=== PATIENT | male | born 1940 | race Caucasian/White ===

== ENCOUNTER → 2018-07-01 13:12 | Outpatient (CLI) | payer MEDICARE, OTHER, SELFPAY ==
--- NOTE | 2018-07-01 | DI.RAD.S_ITS ---
PROCEDURE: XR CHEST 2V INDICATIONS: cough TECHNIQUE: 2 views of the chest were acquired. COMPARISON: [facility], , CHEST 2 VIEW, 12/06/2016, 20:38. FINDINGS: Surgical changes and devices: Sternotomy wires, presumed prior CABG. Lungs and pleura: No pleural effusions or pneumothorax. Lungs are abnormal with a mild interstitial prominence. Mediastinum: Mediastinal contours are normal. Heart size is normal. Bones and chest wall: No suspicious bony abnormalities. Soft tissues appear unremarkable. IMPRESSION: Mild interstitial prominence, previously present. A slight degree of superimposed pulmonary edema may be present but no pneumonia is seen. Dictated by: Felipe Cuevas M.D. on 07/01/2018 at 13:57 Approved by: Felipe Cuevas M.D. on 07/01/2018 at 13:57
== END ==
PROVIDERS: PCP Family Medicine; Visit Provider Family Medicine
DX: R05 Cough (principal)
CPT/HCPCS: 71046

== ENCOUNTER → 2018-07-22 11:11 | Outpatient (CLI) | payer MEDICARE, OTHER, SELFPAY | PROVIDERS: PCP Family Medicine; Visit Provider Otolaryngology | DX: Z01.818 Encounter for other preprocedural examination (principal) | CPT/HCPCS: 93005 ==

== ENCOUNTER 2018-08-10 13:45 | Outpatient (RCR) | payer MEDICARE, OTHER, SELFPAY ==
--- NOTE | 2018-05-17 14:30 | PT.OIE ---
Current Diagnoses Low back pain (05/17/18) Provider Visit Care Team Role Provider Type Martín West MD Attending Provider Physician Primary Care Provider Specialty: Family Practice Address: [address], [place], [address] Email: Physical Therapy Initial Evaluation PT-OP-A Visit Information Start: 05/17/18 13:32 Freq: Status: Active Protocol: Document 05/17/18 14:30 MDD (Rec: 05/17/18 15:37 MDD [email or web address]) Out-Patient Physical Therapy Visit Information Visit Information Visit Type Initial Evaluation Visit Start Time 13:50 Visit Stop Time 14:30 Total Visit Minutes 40 Visit Number 1 Number of CHORAL DIRECTOR Visits 0 Evaluation Information Evaluation Date 05/17/18 PT-OP-B Current Condition Start: 05/17/18 13:32 Freq: Status: Active Protocol: Document 05/17/18 14:30 MDD (Rec: 05/17/18 15:37 MDD [email or web address]) Current Condition History of Current Condition Onset Date last few years Current Complaints Pt complains of fatigue in LE' s, decreased endurance and worsening balance History of Current Condition Pt comes in with his , Candice. They report multiple concerns. He notes intermittent low back pain that is worse in the morning and improves as the day goes on. It does not limit his activity, but he is concerned it may be having an affect on his legs (ie nerve compression /injury). Denies radiating pain, numbness/tingling in his legs or b/b changes. Does note some level of urgency incontinence at baseline. He had a porcine valve replacement a few years ago and continues to participate in cardiac rehab 2x per week. Notes that his legs fatigue more quickly when walking. reports they rarely walk together, but she usually has to wait for him because he is slow. Notes he was able to walk at good pace on level ground x 25 minutes yesterday without much trouble. Also reports falling 4-5 times in last 6 month. Denies dizziness, but feels unbalanced. No injuries so far due to falls. No use of an assistive device. Prior Treatments and Tests NA Future Testing and Treatments Planned NA Treatment Goals Patient/Caregiver Goals To be able to keep up with his . Decrease falls. Prior Functional Status Baseline Function- ADL's Independent Baseline Function- Mobility Independent Baseline Function- Recreation/Hobbies in spring, fall and winter attends an exercise class 2x per week in addition to cardiac rehab 2x per week. PT-OP-C Subjective Start: 05/17/18 13:32 Freq: Status: Active Protocol: Document 05/17/18 14:30 MDD (Rec: 05/17/18 15:37 MDD [email or web address]) OP-PT Pain Assessment Location Back Pain Location Details low back, B paraspinals Intensity 3 Scale Used Numeric (1 - 10) Description Aching Tightness Frequency Intermittent Pain Duration usually resolved by midmorning Pain Aggravating Factors Position PT-OP-D Balance Start: 05/17/18 13:32 Freq: Status: Active Protocol: Document 05/17/18 14:30 MDD (Rec: 05/17/18 15:37 MDD [email or web address]) Chandler Balance Assessment Evaluation Sitting to Standing Ability Independent w/out Hands Unsupported Stance Supervision- 2 minutes Sitting Unsupported, Feet on Floor Safely- 2 minutes Standing to Sitting Ability Safely, Minimal Hand Use Transfer Ability Safely, Minimal Hand Use Unsupported Stance- Eyes Closed Supervision, 10 seconds Unsupported Stance- Eyes Open Supervision to maintain Reaching Forward Standing Confidently, 10 inches Pick- Up Object From Floor Supervision Look Behind Shoulder - Standing Turns Sideways Only Turning 360 Degrees Turns , < 4 secs Unsupported Stance, Alternating Feet on 4 Steps w/Supervision Stair Unsupported Tandem Stance Small Step- 30 seconds Unilateral Leg Stance Lifts Leg/Holds 5-10 secs Total Score Chandler Total Score (out of 56 points) 44 Chandler Impairment Rating 20 to 39% Impaired (Score 34- 44) PT-OP-G Mobility & Gait Start: 05/17/18 13:32 Freq: Status: Active Protocol: Document 05/17/18 14:30 MDD (Rec: 05/17/18 15:37 MDD [email or web address]) OP Mobility Evaluation Bed Mobility Rolling independent Supine to and from Sit independent PT-OP-M Strength Start: 05/17/18 13:32 Freq: Status: Active Protocol: Document 05/17/18 14:30 MDD (Rec: 05/17/18 15:37 MDD [email or web address]) Hip Strength Hip Manual Muscle Testing Right Flexion (L2) 5 Normal Extension (S1) 5 Normal Abduction 5 Normal External Rotation 5 Normal Internal Rotation 5 Normal Left Flexion (L2) 5 Normal Extension (S1) 5 Normal Abduction 5 Normal External Rotation 5 Normal Internal Rotation 5 Normal Knee Strength Knee Manual Muscle Testing Right Flexion (S2) 5 Normal Extension (L3) 5 Normal Left Flexion (S2) 5 Normal Extension (L3) 5 Normal Ankle/Foot Strength Ankle and Foot Manual Muscle Testing Right Dorsiflexion (L4) 5 Normal Reason Not Measured WFL Left Dorsiflexion (L4) 5 Normal Reason Not Measured WFL PT-OP-T Assessment and Plan Start: 05/17/18 13:32 Freq: Status: Active Protocol: Document 05/17/18 14:30 MDD (Rec: 05/17/18 15:37 MDD [email or web address]) Physical Therapy Assessment Rehab Potential Rehabilitation Potential Excellent Evaluation Complexity Number of Personal Factors/Comorbidities 1-2 Number of Body Systems Impaired 1-2 Clinical Presentation at Evaluation Stable Impairments Impairments Activity Tolerance Balance Gait Pain Strength Goals Three Impairment activity tolerance Short Term Goal (STG) Pt to report ability to walk up to 40 minutes without fatigue STG Duration 6 weeks Two Impairment Balance Short Term Goal (STG) Pt to improve Chandler balance score to 52/56 to indicate decreased fall risk. STG Duration 6 weeks One Impairment Activity Tolerance Short Term Goal (STG) Pt will demonstrate ability to perform at least 11 sit to stands in 30 seconds. STG Duration 4 weeks Group Home Goal (LTG) Pt will increase 30 second sit to stand test by at least 5 reps LTG Duration 6 weeks Assessment Summary Assessment Pt complains of worsening balance, decreased endurance and fatigue that has been worsening in the last few years. On examination today he demonstrates mild balance impairments, mild LE strength deficits and decreased activity tolerance and should benefit from a PT plan of care to address the above impairments. Physical Therapy Plan Frequency and Duration Frequency of Treatment 1x/Week Duration of Treatment 8 weeks Plan of Care Start Date 05/17/18 Plan of Care End Date 07/12/18 Therapeutic Interventions Therapeutic Interventions Balance Training Gait Training Home Exercise Program Self-Care/Home Management Therapeutic Activities Therapeutic Exercises Next Visit Focus/Plan Next Note Type Treatment Note Next Visit Plan Perform DGI assessment, develop HEP including sit to stands, romberg balance with head turns/eyes closed etc.
--- NOTE | 2018-05-17 14:30 | PT.OPPOC ---
Current Diagnoses Low back pain (05/17/18) Provider Visit Care Team Role Provider Type Martín West MD Attending Provider Physician Primary Care Provider Specialty: Family Practice Address: [address], [place], [address] Email: Plan Of Care PT-OP-T Assessment and Plan Start: 05/17/18 13:32 Freq: Status: Active Protocol: Document 05/17/18 14:30 MDD (Rec: 05/17/18 15:37 MDD [email or web address]) Physical Therapy Assessment Rehab Potential Rehabilitation Potential Excellent Evaluation Complexity Number of Personal Factors/Comorbidities 1-2 Number of Body Systems Impaired 1-2 Clinical Presentation at Evaluation Stable Impairments Impairments Activity Tolerance Balance Gait Pain Strength Goals Three Impairment activity tolerance Short Term Goal (STG) Pt to report ability to walk up to 40 minutes without fatigue STG Duration 6 weeks Two Impairment Balance Short Term Goal (STG) Pt to improve Chandler balance score to 52/56 to indicate decreased fall risk. STG Duration 6 weeks One Impairment Activity Tolerance Short Term Goal (STG) Pt will demonstrate ability to perform at least 11 sit to stands in 30 seconds. STG Duration 4 weeks Mcfp Goal (LTG) Pt will increase 30 second sit to stand test by at least 5 reps LTG Duration 6 weeks Assessment Summary Assessment Pt complains of worsening balance, decreased endurance and fatigue that has been worsening in the last few years. On examination today he demonstrates mild balance impairments, mild LE strength deficits and decreased activity tolerance and should benefit from a PT plan of care to address the above impairments. Physical Therapy Plan Frequency and Duration Frequency of Treatment 1x/Week Duration of Treatment 8 weeks Plan of Care Start Date 05/17/18 Plan of Care End Date 07/12/18 Therapeutic Interventions Therapeutic Interventions Balance Training Gait Training Home Exercise Program Self-Care/Home Management Therapeutic Activities Therapeutic Exercises Next Visit Focus/Plan Next Note Type Treatment Note Next Visit Plan Perform DGI assessment, develop HEP including sit to stands, romberg balance with head turns/eyes closed etc. Plan of Care Dates Plan of Care Start Date 05/17/18 Plan of Care End Date 07/12/18 Please Sign and Return: I have reviewed this Plan of Care and certify that the skilled therapy services above are required to meet the patient?s needs. Physician Signature Date Printed Name and Credentials Clinical Instructor Signature Printed Name and Credentials
--- NOTE | 2018-06-07 14:30 | PT.OTN ---
Current Diagnoses Low back pain (06/07/18) Physical Therapy Treatment Note PT-OP-A Visit Information Start: 05/17/18 13:32 Freq: Status: Active Protocol: Document 06/07/18 14:30 MDD (Rec: 06/08/18 12:40 MDD [id number]) Out-Patient Physical Therapy Visit Information Visit Information Visit Type Treatment Note Visit Start Time 13:45 Visit Stop Time 14:30 Total Visit Minutes 45 Visit Number 2 Number of CIRCULATION ANALYST Visits 0 Evaluation Information Evaluation Date 05/17/18 PT-OP-B Current Condition Start: 05/17/18 13:32 Freq: Status: Active Protocol: Document 05/17/18 14:30 MDD (Rec: 05/17/18 15:37 MDD [email or web address]) Current Condition History of Current Condition Onset Date last few years Current Complaints Pt complains of fatigue in LE' s, decreased endurance and worsening balance History of Current Condition Pt comes in with his , Candice. They report multiple concerns. He notes intermittent low back pain that is worse in the morning and improves as the day goes on. It does not limit his activity, but he is concerned it may be having an affect on his legs (ie nerve compression /injury). Denies radiating pain, numbness/tingling in his legs or b/b changes. Does note some level of urgency incontinence at baseline. He had a porcine valve replacement a few years ago and continues to participate in cardiac rehab 2x per week. Notes that his legs fatigue more quickly when walking. reports they rarely walk together, but she usually has to wait for him because he is slow. Notes he was able to walk at good pace on level ground x 25 minutes yesterday without much trouble. Also reports falling 4-5 times in last 6 month. Denies dizziness, but feels unbalanced. No injuries so far due to falls. No use of an assistive device. Prior Treatments and Tests NA Future Testing and Treatments Planned NA Treatment Goals Patient/Caregiver Goals To be able to keep up with his . Decrease falls. Prior Functional Status Baseline Function- ADL's Independent Baseline Function- Mobility Independent Baseline Function- Recreation/Hobbies in spring, fall and winter attends an exercise class 2x per week in addition to cardiac rehab 2x per week. PT-OP-C Subjective Start: 05/17/18 13:32 Freq: Status: Active Protocol: Document 06/07/18 14:30 MDD (Rec: 06/08/18 12:40 MDD [id number]) OP-PT Subjective Patient Comments Patient Comments Pt comes in with , Candice. Reports having a fall in the shower last week. Was able to slowly slide down the wall and get back up, no injuries. Has not done any of his PT exercises. PT-OP-D Balance Start: 05/17/18 13:32 Freq: Status: Active Protocol: Document 06/07/18 14:30 MDD (Rec: 06/08/18 12:40 MDD [id number]) Balance Tests Other Other Balance Tests Performed Performed DGI today. Pt scored 18/24 which is indicative of fall risk. Pt had the most difficulty with changes in gait speed, head nods and turns and quick turns . Attention seems to play a roll in his balance deficits. PT-OP-G Mobility & Gait Start: 05/17/18 13:32 Freq: Status: Active Protocol: Document 05/17/18 14:30 MDD (Rec: 05/17/18 15:37 MDD [email or web address]) OP Mobility Evaluation Bed Mobility Rolling independent Supine to and from Sit independent PT-OP-M Strength Start: 05/17/18 13:32 Freq: Status: Active Protocol: Document 05/17/18 14:30 MDD (Rec: 05/17/18 15:37 MDD [email or web address]) Hip Strength Hip Manual Muscle Testing Right Flexion (L2) 5 Normal Extension (S1) 5 Normal Abduction 5 Normal External Rotation 5 Normal Internal Rotation 5 Normal Left Flexion (L2) 5 Normal Extension (S1) 5 Normal Abduction 5 Normal External Rotation 5 Normal Internal Rotation 5 Normal Knee Strength Knee Manual Muscle Testing Right Flexion (S2) 5 Normal Extension (L3) 5 Normal Left Flexion (S2) 5 Normal Extension (L3) 5 Normal Ankle/Foot Strength Ankle and Foot Manual Muscle Testing Right Dorsiflexion (L4) 5 Normal Reason Not Measured WFL Left Dorsiflexion (L4) 5 Normal Reason Not Measured WFL PT-OP-Q Treatments Start: 05/17/18 13:32 Freq: Status: Active Protocol: Document 06/07/18 14:30 MDD (Rec: 06/08/18 12:40 MDD [id number]) Therapeutic Exercises Supine Exercises supine lumbar rotation Side bilateral Reps/Minutes 10 reps single knee to chest Side bilateral Reps/Minutes 10 reps Standing Exercises sit to stands Reps/Minutes 20 heel-toe balance activity Standing Exercise Name weight shifts heel-toe maintaining balance Equipment Used standing against a wall - to be performed in corner at home Reps/Minutes 10 Romberg - head nods and turns Reps/Minutes [address] Romberg balance-eyes closed Standing Exercise Name feet together Reps/Minutes 2 x 30 seconds Romberg balance Standing Exercise Name feet together eyes open Side bilateral Reps/Minutes 2 x 30s PT-OP-T Assessment and Plan Start: 05/17/18 13:32 Freq: Status: Active Protocol: Document 06/07/18 14:30 MDD (Rec: 06/08/18 12:40 MDD [id number]) Physical Therapy Assessment Rehab Potential Rehabilitation Potential Excellent Progress Towards Goals Progress Towards Goals Slow Progress due to Noncompliance Progress Comments Pt has not yet started his HEP at home. Assessment Summary Assessment Pt reports one fall since his initial evaluation. Did have some difficulty with higher level balance as evidenced by DGI score today. Should continue to benefit from balance training and lower extremity strengthening. Physical Therapy Plan Frequency and Duration Frequency of Treatment 1x/Week Duration of Treatment 8 weeks Plan of Care Start Date 05/17/18 Plan of Care End Date 07/12/18 Next Visit Focus/Plan Next Note Type Treatment Note Next Visit Plan Review current HEP. Trial higher level balance activities including bosu, shuttle balance etc.
--- NOTE | 2018-06-14 14:32 | PT.OTN ---
Current Diagnoses Low back pain (06/14/18) Physical Therapy Treatment Note PT-OP-A Visit Information Start: 05/17/18 13:32 Freq: Status: Active Protocol: Document 06/07/18 14:30 MDD (Rec: 06/08/18 12:40 MDD [id number]) Out-Patient Physical Therapy Visit Information Visit Information Visit Type Treatment Note Visit Start Time 13:45 Visit Stop Time 14:30 Total Visit Minutes 45 Visit Number 2 Number of CITY AUDITOR Visits 0 Evaluation Information Evaluation Date 05/17/18 PT-OP-B Current Condition Start: 05/17/18 13:32 Freq: Status: Active Protocol: Document 05/17/18 14:30 MDD (Rec: 05/17/18 15:37 MDD [email or web address]) Current Condition History of Current Condition Onset Date last few years Current Complaints Pt complains of fatigue in LE' s, decreased endurance and worsening balance History of Current Condition Pt comes in with his , Candice. They report multiple concerns. He notes intermittent low back pain that is worse in the morning and improves as the day goes on. It does not limit his activity, but he is concerned it may be having an affect on his legs (ie nerve compression /injury). Denies radiating pain, numbness/tingling in his legs or b/b changes. Does note some level of urgency incontinence at baseline. He had a porcine valve replacement a few years ago and continues to participate in cardiac rehab 2x per week. Notes that his legs fatigue more quickly when walking. reports they rarely walk together, but she usually has to wait for him because he is slow. Notes he was able to walk at good pace on level ground x 25 minutes yesterday without much trouble. Also reports falling 4-5 times in last 6 month. Denies dizziness, but feels unbalanced. No injuries so far due to falls. No use of an assistive device. Prior Treatments and Tests NA Future Testing and Treatments Planned NA Treatment Goals Patient/Caregiver Goals To be able to keep up with his . Decrease falls. Prior Functional Status Baseline Function- ADL's Independent Baseline Function- Mobility Independent Baseline Function- Recreation/Hobbies in spring, fall and winter attends an exercise class 2x per week in addition to cardiac rehab 2x per week. PT-OP-C Subjective Start: 05/17/18 13:32 Freq: Status: Active Protocol: Document 06/14/18 14:32 MDD (Rec: 06/14/18 14:56 MDD [email or web address]) OP-PT Subjective Patient Comments Patient Comments Pt reports he lost his handout and was not able to remember all the exercises. He did do the stretches for bed to help his back pain. He also reports one fall in the last week. Notes he was attending a doctor's appointment with his and his R knee just gave out on him. Denies R knee pain overall. Patient Reported Progress Same PT-OP-Q Treatments Start: 05/17/18 13:32 Freq: Status: Active Protocol: Document 06/14/18 14:32 MDD (Rec: 06/14/18 14:56 MDD [email or web address]) Cardio Equipment Recumbent Stepper (Sci-Fit) Duration (Minutes) 5 Resistance 5 Seat Position 7 Gym Equipment Shuttle Balance Blue loops Details forward/backward weight shifts Reps/Duration 8 minutes Comments intermittent need for UE support, able to self correct Therapeutic Exercises Standing Exercises sit to stands Standing Exercise Name sit to stands Reps/Minutes 20 Comments emphasis on slow/controlled movement heel-toe balance activity Standing Exercise Name weight shifts heel-toe maintaining balance Equipment Used standing against a wall - to be performed in corner at home Reps/Minutes 10 Romberg - head nods and turns Reps/Minutes [address] Romberg balance-eyes closed Standing Exercise Name feet together Reps/Minutes 2 x 30 seconds Romberg balance Standing Exercise Name feet together eyes open Side bilateral Reps/Minutes 2 x 30s Neuro Re-Education Treatment Balance Activities Gait with directives Details Head nods, turns, changes in gait speed Surface level ground - carpet Reps/Duration 8 minutes Comments Pt cued to maintain gait speed throughout, performed with gait belt and SBA. No LOB's today. Bosu Details double leg balance, lunges on bosu, weight shifts forward/ back, side/side Surface bosu (upright except for with weight shifts) Reps/Duration 10 minutes Comments Pt required UE intermittently during balance on upturned bosu PT-OP-T Assessment and Plan Start: 05/17/18 13:32 Freq: Status: Active Protocol: Document 06/14/18 14:32 MDD (Rec: 06/14/18 14:56 MDD [email or web address]) Physical Therapy Assessment Progress Towards Goals Progress Towards Goals Slow Progress due to Noncompliance Progress Comments Pt continues to report falls and has not done his exercises yet. Physical Therapy Plan Next Visit Focus/Plan Next Note Type Treatment Note Next Visit Plan Continue with higher level balance challenges (bosu, shuttle balance etc)
--- NOTE | 2018-06-21 14:31 | PT.OTN ---
Current Diagnoses Low back pain (06/21/18) Physical Therapy Treatment Note PT-OP-A Visit Information Start: 05/17/18 13:32 Freq: Status: Active Protocol: Document 06/21/18 14:31 MDD (Rec: 06/21/18 16:46 MDD [email or web address]) Out-Patient Physical Therapy Visit Information Visit Information Visit Type Treatment Note Visit Start Time 13:50 Visit Stop Time 14:31 Total Visit Minutes 41 Visit Number 4 Number of VETERINARY TECHNICIAN INSTRUCTOR Visits 0 Evaluation Information Evaluation Date 05/17/18 PT-OP-B Current Condition Start: 05/17/18 13:32 Freq: Status: Active Protocol: Document 05/17/18 14:30 MDD (Rec: 05/17/18 15:37 MDD [email or web address]) Current Condition History of Current Condition Onset Date last few years Current Complaints Pt complains of fatigue in LE' s, decreased endurance and worsening balance History of Current Condition Pt comes in with his , Candice. They report multiple concerns. He notes intermittent low back pain that is worse in the morning and improves as the day goes on. It does not limit his activity, but he is concerned it may be having an affect on his legs (ie nerve compression /injury). Denies radiating pain, numbness/tingling in his legs or b/b changes. Does note some level of urgency incontinence at baseline. He had a porcine valve replacement a few years ago and continues to participate in cardiac rehab 2x per week. Notes that his legs fatigue more quickly when walking. reports they rarely walk together, but she usually has to wait for him because he is slow. Notes he was able to walk at good pace on level ground x 25 minutes yesterday without much trouble. Also reports falling 4-5 times in last 6 month. Denies dizziness, but feels unbalanced. No injuries so far due to falls. No use of an assistive device. Prior Treatments and Tests NA Future Testing and Treatments Planned NA Treatment Goals Patient/Caregiver Goals To be able to keep up with his . Decrease falls. Prior Functional Status Baseline Function- ADL's Independent Baseline Function- Mobility Independent Baseline Function- Recreation/Hobbies in spring, fall and winter attends an exercise class 2x per week in addition to cardiac rehab 2x per week. PT-OP-C Subjective Start: 05/17/18 13:32 Freq: Status: Active Protocol: Document 06/21/18 14:31 MDD (Rec: 06/21/18 16:46 MDD [email or web address]) OP-PT Subjective Patient Comments Patient Comments Pt reports he hasn't had a fall in the past week, but has had a few unbalanced moments he was able to stay on his feet. It happens mostly when bearing weight on his R LE. Patient Reported Progress Improving PT-OP-D Balance Start: 05/17/18 13:32 Freq: Status: Active Protocol: Document 06/07/18 14:30 MDD (Rec: 06/08/18 12:40 MDD [id number]) Balance Tests Other Other Balance Tests Performed Performed DGI today. Pt scored which is indicative of fall risk. Pt had the most difficulty with changes in gait speed, head nods and turns and quick turns . Attention seems to play a roll in his balance deficits. PT-OP-G Mobility & Gait Start: 05/17/18 13:32 Freq: Status: Active Protocol: Document 05/17/18 14:30 MDD (Rec: 05/17/18 15:37 MDD [email or web address]) OP Mobility Evaluation Bed Mobility Rolling independent Supine to and from Sit independent PT-OP-M Strength Start: 05/17/18 13:32 Freq: Status: Active Protocol: Document 05/17/18 14:30 MDD (Rec: 05/17/18 15:37 MDD [email or web address]) Hip Strength Hip Manual Muscle Testing Right Flexion (L2) 5 Normal Extension (S1) 5 Normal Abduction 5 Normal External Rotation 5 Normal Internal Rotation 5 Normal Left Flexion (L2) 5 Normal Extension (S1) 5 Normal Abduction 5 Normal External Rotation 5 Normal Internal Rotation 5 Normal Knee Strength Knee Manual Muscle Testing Right Flexion (S2) 5 Normal Extension (L3) 5 Normal Left Flexion (S2) 5 Normal Extension (L3) 5 Normal Ankle/Foot Strength Ankle and Foot Manual Muscle Testing Right Dorsiflexion (L4) 5 Normal Reason Not Measured WFL Left Dorsiflexion (L4) 5 Normal Reason Not Measured WFL PT-OP-Q Treatments Start: 05/17/18 13:32 Freq: Status: Active Protocol: Document 06/21/18 14:31 MDD (Rec: 06/21/18 16:46 MDD [email or web address]) Cardio Equipment Recumbent Stepper (Sci-Fit) Duration (Minutes) 5 Resistance 5 Seat Position 7 Gym Equipment Shuttle Balance Blue loops Details forward/backward weight shifts Comments feet together, head nods and turns Therapeutic Exercises Standing Exercises single leg stance Standing Exercise Name single leg Side bilateral Equipment Used parallel bars Reps/Minutes 2 x 45 seconds each standing hip extension Standing Exercise Name hip extension Side bilateral Resistance L1 t-band Reps/Minutes 2 x 15 standing hip abduction Standing Exercise Name hip abduction Side bilateral Resistance L1 t- band Reps/Minutes 2 x 15 Romberg balance Standing Exercise Name feet together eyes open Side bilateral Reps/Minutes 2 x 30s Therapeutic Activity Therapeutic Activity dynamic balance training Name parallel bars Reps/Minutes 15 each Comments Standing marching in place ( controlled movements), taps onto small step, stepping up and over grigsby cushion, stepping over obstacles. PT-OP-T Assessment and Plan Start: 05/17/18 13:32 Freq: Status: Active Protocol: Document 06/21/18 14:31 MDD (Rec: 06/21/18 16:46 MDD [email or web address]) Physical Therapy Assessment Progress Towards Goals Progress Towards Goals Progressing Toward Goals Progress Comments Pt has been a bit more consistent with his exercises, still becoming unbalanced frequently through the day. Assessment Summary Assessment Pt demonstrating improvement in maintaining balance when weightbearing on R LE with practice today. Physical Therapy Plan Frequency and Duration Frequency of Treatment 1x/Week Duration of Treatment 8 weeks Plan of Care Start Date 05/17/18 Plan of Care End Date 07/12/18 Next Visit Focus/Plan Next Note Type Treatment Note Next Visit Plan Continue with higher level balance challenges (bosu, shuttle balance etc)
--- NOTE | 2018-07-04 12:45 | PT.OTN ---
Current Diagnoses Low back pain (07/04/18) Physical Therapy Treatment Note PT-OP-A Visit Information Start: 05/17/18 13:32 Freq: Status: Active Protocol: Document 07/04/18 12:00 DCW (Rec: 07/04/18 12:45 DCW [id number]) Out-Patient Physical Therapy Visit Information Visit Information Visit Type Treatment Note Visit Start Time 12:00 Visit Stop Time 12:45 Total Visit Minutes 45 Visit Number 5 Number of BASKET BOTTOM MACHINE OPERATOR Visits 0 Evaluation Information Evaluation Date 05/17/18 PT-OP-B Current Condition Start: 05/17/18 13:32 Freq: Status: Active Protocol: Document 05/17/18 14:30 MDD (Rec: 05/17/18 15:37 MDD [email or web address]) Current Condition History of Current Condition Onset Date last few years Current Complaints Pt complains of fatigue in LE' s, decreased endurance and worsening balance History of Current Condition Pt comes in with his , Candice. They report multiple concerns. He notes intermittent low back pain that is worse in the morning and improves as the day goes on. It does not limit his activity, but he is concerned it may be having an affect on his legs (ie nerve compression /injury). Denies radiating pain, numbness/tingling in his legs or b/b changes. Does note some level of urgency incontinence at baseline. He had a porcine valve replacement a few years ago and continues to participate in cardiac rehab 2x per week. Notes that his legs fatigue more quickly when walking. reports they rarely walk together, but she usually has to wait for him because he is slow. Notes he was able to walk at good pace on level ground x 25 minutes yesterday without much trouble. Also reports falling 4-5 times in last 6 month. Denies dizziness, but feels unbalanced. No injuries so far due to falls. No use of an assistive device. Prior Treatments and Tests NA Future Testing and Treatments Planned NA Treatment Goals Patient/Caregiver Goals To be able to keep up with his . Decrease falls. Prior Functional Status Baseline Function- ADL's Independent Baseline Function- Mobility Independent Baseline Function- Recreation/Hobbies in spring, fall and winter attends an exercise class 2x per week in addition to cardiac rehab 2x per week. PT-OP-C Subjective Start: 05/17/18 13:32 Freq: Status: Active Protocol: Document 07/04/18 12:00 DCW (Rec: 07/04/18 12:45 DCW [id number]) OP-PT Subjective Patient Comments Patient Comments Pt reports he still feels a little shakey, but feels like if he walks a little faster my balance mechanism stays up with my body. PT-OP-D Balance Start: 05/17/18 13:32 Freq: Status: Active Protocol: Document 06/07/18 14:30 MDD (Rec: 06/08/18 12:40 MDD [id number]) Balance Tests Other Other Balance Tests Performed Performed DGI today. Pt scored 18/24 which is indicative of fall risk. Pt had the most difficulty with changes in gait speed, head nods and turns and quick turns . Attention seems to play a roll in his balance deficits. PT-OP-G Mobility & Gait Start: 05/17/18 13:32 Freq: Status: Active Protocol: Document 05/17/18 14:30 MDD (Rec: 05/17/18 15:37 MDD [email or web address]) OP Mobility Evaluation Bed Mobility Rolling independent Supine to and from Sit independent PT-OP-M Strength Start: 05/17/18 13:32 Freq: Status: Active Protocol: Document 05/17/18 14:30 MDD (Rec: 05/17/18 15:37 MDD [email or web address]) Hip Strength Hip Manual Muscle Testing Right Flexion (L2) 5 Normal Extension (S1) 5 Normal Abduction 5 Normal External Rotation 5 Normal Internal Rotation 5 Normal Left Flexion (L2) 5 Normal Extension (S1) 5 Normal Abduction 5 Normal External Rotation 5 Normal Internal Rotation 5 Normal Knee Strength Knee Manual Muscle Testing Right Flexion (S2) 5 Normal Extension (L3) 5 Normal Left Flexion (S2) 5 Normal Extension (L3) 5 Normal Ankle/Foot Strength Ankle and Foot Manual Muscle Testing Right Dorsiflexion (L4) 5 Normal Reason Not Measured WFL Left Dorsiflexion (L4) 5 Normal Reason Not Measured WFL PT-OP-Q Treatments Start: 05/17/18 13:32 Freq: Status: Active Protocol: Document 07/04/18 12:00 DCW (Rec: 07/04/18 12:45 DCW [id number]) Cardio Equipment Recumbent Stepper (Sci-Fit) Duration (Minutes) 5 Resistance 5 Seat Position 7 Gym Equipment Shuttle Balance Blue loops Details forward/backward weight shifts Comments feet together, head nods and turns Therapeutic Exercises Standing Exercises standing hip extension Standing Exercise Name hip extension Side bilateral Resistance L2 t-band Reps/Minutes 2 x 15 standing hip abduction Standing Exercise Name hip abduction Side bilateral Resistance L2 t- band Reps/Minutes 2 x 15 Romberg - head nods and turns Reps/Minutes [address] Romberg balance-eyes closed Standing Exercise Name feet together Reps/Minutes 2 x 30 seconds Therapeutic Activity Therapeutic Activity dynamic balance training Name parallel bars Reps/Minutes 15 each Comments Standing marching in place ( controlled movements), taps onto small step, stepping up and over grigsby cushion, stepping over obstacles. Neuro Re-Education Treatment Balance Activities Resisted Fwd/Retro Gait Details Resisted Forward/Retro Ambulation Equipment Green T-band Resisted side-stepping Details Resisted Side-stepping Equipment Green T-Band PT-OP-T Assessment and Plan Start: 05/17/18 13:32 Freq: Status: Active Protocol: Document 07/04/18 12:00 DCW (Rec: 07/04/18 12:45 DCW [id number]) Physical Therapy Assessment Impairments Impairments Activity Tolerance Balance Gait Pain Strength Goals Three Impairment activity tolerance Short Term Goal (STG) Pt to report ability to walk up to 40 minutes without fatigue STG Duration 6 weeks Two Impairment Balance Short Term Goal (STG) Pt to improve Chandler balance score to 52/56 to indicate decreased fall risk. STG Duration 6 weeks One Impairment Activity Tolerance Short Term Goal (STG) Pt will demonstrate ability to perform at least 11 sit to stands in 30 seconds. STG Duration 4 weeks Group Home Goal (LTG) Pt will increase 30 second sit to stand test by at least 5 reps LTG Duration 6 weeks Progress Towards Goals Progress Towards Goals Progressing Toward Goals Assessment Summary Assessment Pt required multiple rest breaks due to LE fatigue while performing balance training Physical Therapy Plan Frequency and Duration Frequency of Treatment 1x/Week Duration of Treatment 8 weeks Plan of Care Start Date 05/17/18 Plan of Care End Date 07/12/18 Therapeutic Interventions Therapeutic Interventions Balance Training Gait Training Home Exercise Program Self-Care/Home Management Therapeutic Activities Therapeutic Exercises Next Visit Focus/Plan Next Note Type Treatment Note Next Visit Plan Continue with higher level balance challenges (bosu, shuttle balance etc)
--- NOTE | 2018-07-11 14:36 | PT.OTN ---
Current Diagnoses Low back pain (07/11/18) Physical Therapy Treatment Note PT-OP-A Visit Information Start: 05/17/18 13:32 Freq: Status: Active Protocol: Document 07/11/18 14:36 MDD (Rec: 07/11/18 16:26 MDD [email or web address]) Out-Patient Physical Therapy Visit Information Visit Information Visit Type Initial Evaluation Visit Start Time 13:53 Visit Stop Time 14:36 Total Visit Minutes 43 Visit Number 6 Number of SUPPLY ROOM CLERK Visits 0 Evaluation Information Evaluation Date 05/17/18 PT-OP-B Current Condition Start: 05/17/18 13:32 Freq: Status: Active Protocol: Document 05/17/18 14:30 MDD (Rec: 05/17/18 15:37 MDD [email or web address]) Current Condition History of Current Condition Onset Date last few years Current Complaints Pt complains of fatigue in LE' s, decreased endurance and worsening balance History of Current Condition Pt comes in with his , Candice. They report multiple concerns. He notes intermittent low back pain that is worse in the morning and improves as the day goes on. It does not limit his activity, but he is concerned it may be having an affect on his legs (ie nerve compression /injury). Denies radiating pain, numbness/tingling in his legs or b/b changes. Does note some level of urgency incontinence at baseline. He had a porcine valve replacement a few years ago and continues to participate in cardiac rehab 2x per week. Notes that his legs fatigue more quickly when walking. reports they rarely walk together, but she usually has to wait for him because he is slow. Notes he was able to walk at good pace on level ground x 25 minutes yesterday without much trouble. Also reports falling 4-5 times in last 6 month. Denies dizziness, but feels unbalanced. No injuries so far due to falls. No use of an assistive device. Prior Treatments and Tests NA Future Testing and Treatments Planned NA Treatment Goals Patient/Caregiver Goals To be able to keep up with his . Decrease falls. Prior Functional Status Baseline Function- ADL's Independent Baseline Function- Mobility Independent Baseline Function- Recreation/Hobbies in spring, fall and winter attends an exercise class 2x per week in addition to cardiac rehab 2x per week. PT-OP-C Subjective Start: 05/17/18 13:32 Freq: Status: Active Protocol: Document 07/11/18 14:36 MDD (Rec: 07/11/18 16:26 MDD [email or web address]) OP-PT Subjective Patient Comments Patient Comments Pt reports no falls in the last few weeks, but does note a few close calls. Feels that some of them are related with when he reaches forward to pick somethings up, even from a chair. Patient Reported Progress Improving PT-OP-D Balance Start: 05/17/18 13:32 Freq: Status: Active Protocol: Document 06/07/18 14:30 MDD (Rec: 06/08/18 12:40 MDD [id number]) Balance Tests Other Other Balance Tests Performed Performed DGI today. Pt scored which is indicative of fall risk. Pt had the most difficulty with changes in gait speed, head nods and turns and quick turns . Attention seems to play a roll in his balance deficits. PT-OP-G Mobility & Gait Start: 05/17/18 13:32 Freq: Status: Active Protocol: Document 05/17/18 14:30 MDD (Rec: 05/17/18 15:37 MDD [email or web address]) OP Mobility Evaluation Bed Mobility Rolling independent Supine to and from Sit independent PT-OP-M Strength Start: 05/17/18 13:32 Freq: Status: Active Protocol: Document 05/17/18 14:30 MDD (Rec: 05/17/18 15:37 MDD [email or web address]) Hip Strength Hip Manual Muscle Testing Right Flexion (L2) 5 Normal Extension (S1) 5 Normal Abduction 5 Normal External Rotation 5 Normal Internal Rotation 5 Normal Left Flexion (L2) 5 Normal Extension (S1) 5 Normal Abduction 5 Normal External Rotation 5 Normal Internal Rotation 5 Normal Knee Strength Knee Manual Muscle Testing Right Flexion (S2) 5 Normal Extension (L3) 5 Normal Left Flexion (S2) 5 Normal Extension (L3) 5 Normal Ankle/Foot Strength Ankle and Foot Manual Muscle Testing Right Dorsiflexion (L4) 5 Normal Reason Not Measured WFL Left Dorsiflexion (L4) 5 Normal Reason Not Measured WFL PT-OP-Q Treatments Start: 05/17/18 13:32 Freq: Status: Active Protocol: Document 07/11/18 14:36 MDD (Rec: 07/11/18 16:26 MDD [email or web address]) Cardio Equipment Recumbent Stepper (Sci-Fit) Duration (Minutes) 5 Resistance 5 Seat Position 7 Gym Equipment Shuttle Balance Blue loops Details forward/backward weight shifts Comments feet together, head nods and turns, semi tandem stance, heel raises and mini squats Therapeutic Activity Therapeutic Activity resisted walking Name forward, retro and side to side Reps/Minutes 3 x 30 feet each Comments blue band around ankles, focus on slow and controlled movements and and lifting each foot all the way off the ground. standing balance with perturbations Name therapist perturbations Reps/Minutes 15 each direction Comments Focus on stepping strategy with forward/backward perturbations dynamic balance training Name parallel bars Reps/Minutes 15 each Comments Standing marching in place ( controlled movements), taps onto small step, stepping up and over grigsby cushion, stepping over obstacles. PT-OP-T Assessment and Plan Start: 05/17/18 13:32 Freq: Status: Active Protocol: Document 07/11/18 14:36 MDD (Rec: 07/11/18 16:26 MDD [email or web address]) Physical Therapy Assessment Assessment Summary Assessment Pt demonstrating improved ability to catch himself with stepping strategy when performing perturbations today . He continues to have difficulty performing a regular home exercise routine, but seems to be improving. Has had less falls in the last few weeks. He should continue to progress with continued plan of care. Physical Therapy Plan Frequency and Duration Frequency of Treatment 1x/Week Duration of Treatment 4 Plan of Care Start Date 07/12/18 Plan of Care End Date 08/09/18 Therapeutic Interventions Therapeutic Interventions Balance Training Gait Training Home Exercise Program Self-Care/Home Management Therapeutic Activities Therapeutic Exercises Next Visit Focus/Plan Next Note Type Treatment Note Next Visit Plan Focus on balance challenges incorporating improving distances outside of base of support.
--- NOTE | 2018-07-25 13:45 | PT.OTN ---
Current Diagnoses Low back pain (07/25/18) Physical Therapy Treatment Note PT-OP-A Visit Information Start: 05/17/18 13:32 Freq: Status: Active Protocol: Document 07/25/18 13:45 DLM (Rec: 07/25/18 17:08 DLM [email or web address]) Out-Patient Physical Therapy Visit Information Visit Information Visit Type Treatment Note Visit Start Time 13:45 Visit Stop Time 14:32 Total Visit Minutes 47 Visit Number 7/10 Number of QUARRY MANAGER Visits 0 Evaluation Information Evaluation Date 05/17/18 PT-OP-B Current Condition Start: 05/17/18 13:32 Freq: Status: Active Protocol: Document 05/17/18 14:30 MDD (Rec: 05/17/18 15:37 MDD [email or web address]) Current Condition History of Current Condition Onset Date last few years Current Complaints Pt complains of fatigue in LE' s, decreased endurance and worsening balance History of Current Condition Pt comes in with his , Candice. They report multiple concerns. He notes intermittent low back pain that is worse in the morning and improves as the day goes on. It does not limit his activity, but he is concerned it may be having an affect on his legs (ie nerve compression /injury). Denies radiating pain, numbness/tingling in his legs or b/b changes. Does note some level of urgency incontinence at baseline. He had a porcine valve replacement a few years ago and continues to participate in cardiac rehab 2x per week. Notes that his legs fatigue more quickly when walking. reports they rarely walk together, but she usually has to wait for him because he is slow. Notes he was able to walk at good pace on level ground x 25 minutes yesterday without much trouble. Also reports falling 4-5 times in last 6 month. Denies dizziness, but feels unbalanced. No injuries so far due to falls. No use of an assistive device. Prior Treatments and Tests NA Future Testing and Treatments Planned NA Treatment Goals Patient/Caregiver Goals To be able to keep up with his . Decrease falls. Prior Functional Status Baseline Function- ADL's Independent Baseline Function- Mobility Independent Baseline Function- Recreation/Hobbies in spring, fall and winter attends an exercise class 2x per week in addition to cardiac rehab 2x per week. PT-OP-C Subjective Start: 05/17/18 13:32 Freq: Status: Active Protocol: Document 07/25/18 13:45 DLM (Rec: 07/25/18 17:08 DLM [email or web address]) OP-PT Subjective Patient Comments Patient Comments He participated in a senior exercise class this morning. He thinks his balance is worse when he tries to walk slower. Patient Reported Progress Improving PT-OP-D Balance Start: 05/17/18 13:32 Freq: Status: Active Protocol: Document 06/07/18 14:30 MDD (Rec: 06/08/18 12:40 MDD [id number]) Balance Tests Other Other Balance Tests Performed Performed DGI today. Pt scored 18/24 which is indicative of fall risk. Pt had the most difficulty with changes in gait speed, head nods and turns and quick turns . Attention seems to play a roll in his balance deficits. PT-OP-G Mobility & Gait Start: 05/17/18 13:32 Freq: Status: Active Protocol: Document 05/17/18 14:30 MDD (Rec: 05/17/18 15:37 MDD [email or web address]) OP Mobility Evaluation Bed Mobility Rolling independent Supine to and from Sit independent PT-OP-M Strength Start: 05/17/18 13:32 Freq: Status: Active Protocol: Document 05/17/18 14:30 MDD (Rec: 05/17/18 15:37 MDD [email or web address]) Hip Strength Hip Manual Muscle Testing Right Flexion (L2) 5 Normal Extension (S1) 5 Normal Abduction 5 Normal External Rotation 5 Normal Internal Rotation 5 Normal Left Flexion (L2) 5 Normal Extension (S1) 5 Normal Abduction 5 Normal External Rotation 5 Normal Internal Rotation 5 Normal Knee Strength Knee Manual Muscle Testing Right Flexion (S2) 5 Normal Extension (L3) 5 Normal Left Flexion (S2) 5 Normal Extension (L3) 5 Normal Ankle/Foot Strength Ankle and Foot Manual Muscle Testing Right Dorsiflexion (L4) 5 Normal Reason Not Measured WFL Left Dorsiflexion (L4) 5 Normal Reason Not Measured WFL PT-OP-Q Treatments Start: 05/17/18 13:32 Freq: Status: Active Protocol: Document 07/25/18 13:45 DLM (Rec: 07/25/18 17:08 DLM [email or web address]) Cardio Equipment Recumbent Stepper (Sci-Fit) Duration (Minutes) 5 Resistance 5 Seat Position 10 Therapeutic Exercises Standing Exercises standing hip extension Standing Exercise Name hip extension Side bilateral Resistance L2 t-band Reps/Minutes 2 x 15 standing hip abduction Standing Exercise Name hip abduction Side bilateral Resistance L2 t-band Reps/Minutes 2 x 15 sit to stands Standing Exercise Name sit to stands without UE support Reps/Minutes 5 reps x 2 sets Comments 14 sec, 12 sec Neuro Re-Education Treatment Balance Activities 6 Details single limb standing Surface level Equipment parallel bars Reps/Duration 5 reps each side 5 Details tandem gait Surface level Equipment parallel bars Reps/Duration 4 laps 4 Details semi-tandem standing Surface level Equipment parallel bars Comments static balancing 3 Details standing narrow base of support Surface level Equipment parallel bars Comments head motions, EO and EC 2 Details perturbations standing in narrow JES Surface level Equipment parallel bars Comments therapist provided intermittent perturbations from various directions 1 Details standing marching in place with perturbations Surface level Equipment parallel bars Resisted side-stepping Details Resisted Side-stepping Equipment Green T-Band Self-Care/Home Management Treatment Education Patient Education Home Exercise Program Safety PT-OP-T Assessment and Plan Start: 05/17/18 13:32 Freq: Status: Active Protocol: Document 07/25/18 13:45 DLM (Rec: 07/25/18 17:08 DLM [email or web address]) Physical Therapy Assessment Progress Towards Goals Progress Towards Goals Progressing Toward Goals Progress Comments No recent falls Assessment Summary Assessment He tolerated treatment well with fatigue. He shows good effort during treatment. He gets distracted easily and needs cuing to stay on task. His balance continues to show gradual improvement. Physical Therapy Plan Frequency and Duration Frequency of Treatment 1x/Week Duration of Treatment 8 weeks Plan of Care Start Date 07/12/18 Plan of Care End Date 08/09/18 Therapeutic Interventions Other Therapeutic Interventions continue per treatment plan Next Visit Focus/Plan Next Note Type Progress Note Next Visit Plan continue to challenge his balance reactions
--- NOTE | 2018-08-10 15:41 | PT.OTN ---
Current Diagnoses Low back pain (08/10/18) Physical Therapy Treatment Note PT-OP-A Visit Information Start: 05/17/18 13:32 Freq: Status: Active Protocol: Document 08/10/18 13:56 EA (Rec: 08/10/18 14:33 EA [id number]) Out-Patient Physical Therapy Visit Information Visit Information Visit Type Treatment Note Visit Start Time 13:45 Visit Stop Time 14:30 Total Visit Minutes 45 Visit Number 06/03 PT-OP-B Current Condition Start: 05/17/18 13:32 Freq: Status: Active Protocol: Document 05/17/18 14:30 MDD (Rec: 05/17/18 15:37 MDD [email or web address]) Current Condition History of Current Condition Onset Date last few years Current Complaints Pt complains of fatigue in LE' s, decreased endurance and worsening balance History of Current Condition Pt comes in with his , Candice. They report multiple concerns. He notes intermittent low back pain that is worse in the morning and improves as the day goes on. It does not limit his activity, but he is concerned it may be having an affect on his legs (ie nerve compression /injury). Denies radiating pain, numbness/tingling in his legs or b/b changes. Does note some level of urgency incontinence at baseline. He had a porcine valve replacement a few years ago and continues to participate in cardiac rehab 2x per week. Notes that his legs fatigue more quickly when walking. reports they rarely walk together, but she usually has to wait for him because he is slow. Notes he was able to walk at good pace on level ground x 25 minutes yesterday without much trouble. Also reports falling 4-5 times in last 6 month. Denies dizziness, but feels unbalanced. No injuries so far due to falls. No use of an assistive device. Prior Treatments and Tests NA Future Testing and Treatments Planned NA Treatment Goals Patient/Caregiver Goals To be able to keep up with his . Decrease falls. Prior Functional Status Baseline Function- ADL's Independent Baseline Function- Mobility Independent Baseline Function- Recreation/Hobbies in spring, fall and winter attends an exercise class 2x per week in addition to cardiac rehab 2x per week. PT-OP-C Subjective Start: 05/17/18 13:32 Freq: Status: Active Protocol: Document 08/10/18 13:56 EA (Rec: 08/10/18 14:33 EA [id number]) OP-PT Subjective Patient Comments Patient Comments Pt reports unable to come to PT session in the last 2 weeks due to nose surgery; states that he wants to focus on his balance; states low back is much feeling better now. Pt also want to know if he needs to cont. his therapy base on his current stability. Patient Reported Progress Improving PT-OP-D Balance Start: 05/17/18 13:32 Freq: Status: Active Protocol: Document 08/10/18 15:20 EA (Rec: 08/10/18 15:20 EA [id number]) OP-PT Balance Assessment Sitting Balance Static Sitting Balance Ability Normal Dynamic Sitting Balance Ability Normal Standing Balance Static Standing Balance Ability Normal Dynamic Standing Balance Ability Normal Device Used none Standing Balance Comments Tandem stance with eyes close: > 3secs Tandem walk: yes able Gait index: Low risk fall results Balance Tests Chandler Balance Test Chandler Impairment Rating 1 to 19% Impaired (Score 45-55 ) Almonte Fall Scale Copyright Permission Gage TREVINO, Gage RM, Lora SJ. Development of a scale to identify the fall- prone patient. Can J Aging 1989;8;366-7. Pradip Almonte (2009). Preventing patient falls. (2nd ed). [place]: [place]. PT-OP-G Mobility & Gait Start: 05/17/18 13:32 Freq: Status: Active Protocol: Document 08/10/18 15:20 EA (Rec: 08/10/18 15:22 EA [id number]) OP Gait Assessment Gait Gait Assistance Required: Independent Assistive Devices Assistive Device None Gait Deviations General Gait Pattern Within Normal Limits Factors Limiting Gait Function Factors Limiting Gait Function Decreased Strength PT-OP-M Strength Start: 05/17/18 13:32 Freq: Status: Active Protocol: Document 05/17/18 14:30 MDD (Rec: 05/17/18 15:37 MDD [email or web address]) Hip Strength Hip Manual Muscle Testing Right Flexion (L2) 5 Normal Extension (S1) 5 Normal Abduction 5 Normal External Rotation 5 Normal Internal Rotation 5 Normal Left Flexion (L2) 5 Normal Extension (S1) 5 Normal Abduction 5 Normal External Rotation 5 Normal Internal Rotation 5 Normal Knee Strength Knee Manual Muscle Testing Right Flexion (S2) 5 Normal Extension (L3) 5 Normal Left Flexion (S2) 5 Normal Extension (L3) 5 Normal Ankle/Foot Strength Ankle and Foot Manual Muscle Testing Right Dorsiflexion (L4) 5 Normal Reason Not Measured WFL Left Dorsiflexion (L4) 5 Normal Reason Not Measured WFL PT-OP-Q Treatments Start: 05/17/18 13:32 Freq: Status: Active Protocol: Document 08/10/18 13:56 EA (Rec: 08/10/18 14:33 EA [id number]) Cardio Equipment Recumbent Stepper (Sci-Fit) Duration (Minutes) 5 Resistance 5 Seat Position 10 Therapeutic Exercises Standing Exercises single leg stance Standing Exercise Name single leg Side bilateral Equipment Used parallel bars Reps/Minutes 2 x 45 seconds each Romberg - head nods and turns Reps/Minutes [address] Romberg balance-eyes closed Standing Exercise Name feet together Reps/Minutes 2 x 30 seconds Neuro Re-Education Treatment Balance Activities 5 Details tandem gait Surface level Equipment parallel bars/ on foam Reps/Duration 4 laps 4 Details semi-tandem standing Surface level/ on foam Equipment parallel bars Comments static balancing 3 Details standing narrow base of support Surface level Equipment parallel bars Comments head motions, EO and EC 1 Details standing marching in place with perturbations Surface level Equipment parallel bars Resisted Fwd/Retro Gait Details Resisted Forward/Retro Ambulation Equipment Red T-band Resisted side-stepping Details Resisted Side-stepping Equipment red T-Band PT-OP-T Assessment and Plan Start: 05/17/18 13:32 Freq: Status: Active Protocol: Document 08/10/18 15:26 EA (Rec: 08/10/18 15:39 EA [id number]) Physical Therapy Assessment Rehab Potential Rehabilitation Potential Excellent Impairments Impairments Balance Strength Goals Three Impairment activity tolerance Short Term Goal (STG) Pt to report ability to walk up to 40 minutes without fatigue STG Duration 6 weeks LTG Duration goal reached Two Impairment Balance Short Term Goal (STG) Pt to improve Chandler balance score to 52/56 to indicate decreased fall risk. STG Duration 6 weeks LTG Duration Goal reached One Impairment Activity Tolerance Short Term Goal (STG) Pt will demonstrate ability to perform at least 11 sit to stands in 30 seconds. STG Duration 4 weeks Oracle Applications Developer Goal (LTG) Pt will increase 30 second sit to stand test by at least 5 reps LTG Duration 6 weeks Goal reached Assessment Summary Assessment Pt exhibits improved gait and dynamic balance wiht no signs of instability during the session. Patient was advised to kerry cardiovascular class three times a week and regular home exercises program for balance and strength. Pt is good to be discharged at this time. Physical Therapy Plan Discharge Physical Therapy Discharge Reasons Goals Met Discharge Comments Patient does not require further skilled PT and may benefit with cardio class and [facility] for balance and strength exercises.
--- NOTE | 2018-08-10 15:43 | PT.OTRE ---
Current Diagnoses Low back pain (08/10/18) Provider Visit Care Team Role Provider Type Martín West MD Attending Provider Physician Primary Care Provider Specialty: Family Practice Address: [address], [place], [address] Email: Physical Therapy Re-Evaluation PT-OP-A Visit Information Start: 05/17/18 13:32 Freq: Status: Active Protocol: Document 08/10/18 13:56 EA (Rec: 08/10/18 14:33 EA [id number]) Out-Patient Physical Therapy Visit Information Visit Information Visit Type Treatment Note Visit Start Time 13:45 Visit Stop Time 14:30 Total Visit Minutes 45 Visit Number 06/03 PT-OP-B Current Condition Start: 05/17/18 13:32 Freq: Status: Active Protocol: Document 05/17/18 14:30 MDD (Rec: 05/17/18 15:37 MDD [email or web address]) Current Condition History of Current Condition Onset Date last few years Current Complaints Pt complains of fatigue in LE' s, decreased endurance and worsening balance History of Current Condition Pt comes in with his , Candice. They report multiple concerns. He notes intermittent low back pain that is worse in the morning and improves as the day goes on. It does not limit his activity, but he is concerned it may be having an affect on his legs (ie nerve compression /injury). Denies radiating pain, numbness/tingling in his legs or b/b changes. Does note some level of urgency incontinence at baseline. He had a porcine valve replacement a few years ago and continues to participate in cardiac rehab 2x per week. Notes that his legs fatigue more quickly when walking. reports they rarely walk together, but she usually has to wait for him because he is slow. Notes he was able to walk at good pace on level ground x 25 minutes yesterday without much trouble. Also reports falling 4-5 times in last 6 month. Denies dizziness, but feels unbalanced. No injuries so far due to falls. No use of an assistive device. Prior Treatments and Tests NA Future Testing and Treatments Planned NA Treatment Goals Patient/Caregiver Goals To be able to keep up with his . Decrease falls. Prior Functional Status Baseline Function- ADL's Independent Baseline Function- Mobility Independent Baseline Function- Recreation/Hobbies in spring, fall and winter attends an exercise class 2x per week in addition to cardiac rehab 2x per week. PT-OP-C Subjective Start: 05/17/18 13:32 Freq: Status: Active Protocol: Document 08/10/18 13:56 EA (Rec: 08/10/18 14:33 EA [id number]) OP-PT Subjective Patient Comments Patient Comments Pt reports unable to come to PT session in the last 2 weeks due to nose surgery; states that he wants to focus on his balance; states low back is much feeling better now. Pt also want to know if he needs to cont. his therapy base on his current stability. Patient Reported Progress Improving PT-OP-D Balance Start: 05/17/18 13:32 Freq: Status: Active Protocol: Document 08/10/18 15:20 EA (Rec: 08/10/18 15:20 EA [id number]) OP-PT Balance Assessment Sitting Balance Static Sitting Balance Ability Normal Dynamic Sitting Balance Ability Normal Standing Balance Static Standing Balance Ability Normal Dynamic Standing Balance Ability Normal Device Used none Standing Balance Comments Tandem stance with eyes close: > 3secs Tandem walk: yes able Gait index: Low risk fall results Balance Tests Chandler Balance Test Chandler Impairment Rating 1 to 19% Impaired (Score 45-55 ) Almonte Fall Scale Copyright Permission Gage TREVINO, Gage RM, Lora SJ. Development of a scale to identify the fall- prone patient. Can J Aging 1989;8;366-7. Pradip Almonte (2009). Preventing patient falls. (2nd ed). [place]: Nelson. PT-OP-G Mobility & Gait Start: 05/17/18 13:32 Freq: Status: Active Protocol: Document 08/10/18 15:20 EA (Rec: 08/10/18 15:22 EA [id number]) OP Gait Assessment Gait Gait Assistance Required: Independent Assistive Devices Assistive Device None Gait Deviations General Gait Pattern Within Normal Limits Factors Limiting Gait Function Factors Limiting Gait Function Decreased Strength PT-OP-M Strength Start: 05/17/18 13:32 Freq: Status: Active Protocol: Document 05/17/18 14:30 MDD (Rec: 05/17/18 15:37 MDD [email or web address]) Hip Strength Hip Manual Muscle Testing Right Flexion (L2) 5 Normal Extension (S1) 5 Normal Abduction 5 Normal External Rotation 5 Normal Internal Rotation 5 Normal Left Flexion (L2) 5 Normal Extension (S1) 5 Normal Abduction 5 Normal External Rotation 5 Normal Internal Rotation 5 Normal Knee Strength Knee Manual Muscle Testing Right Flexion (S2) 5 Normal Extension (L3) 5 Normal Left Flexion (S2) 5 Normal Extension (L3) 5 Normal Ankle/Foot Strength Ankle and Foot Manual Muscle Testing Right Dorsiflexion (L4) 5 Normal Reason Not Measured WFL Left Dorsiflexion (L4) 5 Normal Reason Not Measured WFL PT-OP-Q Treatments Start: 05/17/18 13:32 Freq: Status: Active Protocol: Document 08/10/18 13:56 EA (Rec: 08/10/18 14:33 EA [id number]) Cardio Equipment Recumbent Stepper (Sci-Fit) Duration (Minutes) 5 Resistance 5 Seat Position 10 Therapeutic Exercises Standing Exercises single leg stance Standing Exercise Name single leg Side bilateral Equipment Used parallel bars Reps/Minutes 2 x 45 seconds each Romberg - head nods and turns Reps/Minutes [address] Romberg balance-eyes closed Standing Exercise Name feet together Reps/Minutes 2 x 30 seconds Neuro Re-Education Treatment Balance Activities 5 Details tandem gait Surface level Equipment parallel bars/ on foam Reps/Duration 4 laps 4 Details semi-tandem standing Surface level/ on foam Equipment parallel bars Comments static balancing 3 Details standing narrow base of support Surface level Equipment parallel bars Comments head motions, EO and EC 1 Details standing marching in place with perturbations Surface level Equipment parallel bars Resisted Fwd/Retro Gait Details Resisted Forward/Retro Ambulation Equipment Red T-band Resisted side-stepping Details Resisted Side-stepping Equipment red T-Band PT-OP-T Assessment and Plan Start: 05/17/18 13:32 Freq: Status: Active Protocol: Document 08/10/18 15:26 EA (Rec: 08/10/18 15:39 EA [id number]) Physical Therapy Assessment Rehab Potential Rehabilitation Potential Excellent Impairments Impairments Balance Strength Goals Three Impairment activity tolerance Short Term Goal (STG) Pt to report ability to walk up to 40 minutes without fatigue STG Duration 6 weeks LTG Duration goal reached Two Impairment Balance Short Term Goal (STG) Pt to improve Chandler balance score to 52/56 to indicate decreased fall risk. STG Duration 6 weeks LTG Duration Goal reached One Impairment Activity Tolerance Short Term Goal (STG) Pt will demonstrate ability to perform at least 11 sit to stands in 30 seconds. STG Duration 4 weeks Correction Goal (LTG) Pt will increase 30 second sit to stand test by at least 5 reps LTG Duration 6 weeks Goal reached Assessment Summary Assessment Pt exhibits improved gait and dynamic balance with no signs of instability during the session. Patient was advised to maintain cardiovascular class three times a week and regular home exercises program for balance and strength. Pt is good to be discharged at this time. Physical Therapy Plan Frequency and Duration Frequency of Treatment 1x/Week Duration of Treatment 5 wks Plan of Care Start Date 07/11/18 Plan of Care End Date 08/15/18 Discharge Physical Therapy Discharge Reasons Goals Met Discharge Comments Patient does not require further skilled PT and may benefit with cardio class and HEP for balance and strength exercises.
--- NOTE | 2018-08-10 15:44 | PT.OPPOC ---
Current Diagnoses Low back pain (08/10/18) Provider Visit Care Team Role Provider Type Martín West MD Attending Provider Physician Primary Care Provider Specialty: Family Practice Address: [address], [place], [address] Email: Plan Of Care PT-OP-T Assessment and Plan Start: 05/17/18 13:32 Freq: Status: Active Protocol: Document 08/10/18 15:26 EA (Rec: 08/10/18 15:39 EA [id number]) Physical Therapy Assessment Rehab Potential Rehabilitation Potential Excellent Impairments Impairments Balance Strength Goals Three Impairment activity tolerance Short Term Goal (STG) Pt to report ability to walk up to 40 minutes without fatigue STG Duration 6 weeks LTG Duration goal reached Two Impairment Balance Short Term Goal (STG) Pt to improve Chandler balance score to 52/56 to indicate decreased fall risk. STG Duration 6 weeks LTG Duration Goal reached One Impairment Activity Tolerance Short Term Goal (STG) Pt will demonstrate ability to perform at least 11 sit to stands in 30 seconds. STG Duration 4 weeks Glove Wrapper Goal (LTG) Pt will increase 30 second sit to stand test by at least 5 reps LTG Duration 6 weeks Goal reached Assessment Summary Assessment Pt exhibits improved gait and dynamic balance with no signs of instability during the session. Patient was advised to maintain cardiovascular class three times a week and regular home exercises program for balance and strength. Pt is good to be discharged at this time. Physical Therapy Plan Frequency and Duration Frequency of Treatment 1x/Week Duration of Treatment 5 wks Plan of Care Start Date 07/11/18 Plan of Care End Date 08/15/18 Discharge Physical Therapy Discharge Reasons Goals Met Discharge Comments Patient does not require further skilled PT and may benefit with cardio class and HEP for balance and strength exercises. Plan of Care Dates Plan of Care Start Date 07/11/18 Plan of Care End Date 08/15/18 Please Sign and Return: I have reviewed this Plan of Care and certify that the skilled therapy services above are required to meet the patient?s needs. Physician Signature Date Printed Name and Credentials Clinical Instructor Signature Printed Name and Credentials
--- NOTE | 2018-08-10 17:30 | PT.OPDS ---
Current Diagnoses Low back pain (08/10/18) Provider Visit Care Team Role Provider Type Martín West MD Attending Provider Physician Primary Care Provider Specialty: Family Practice Address: [address], [place], [address] Email: Visit Number Visit Number 06/03 Discharge Summary PT-OP-B Current Condition Start: 05/17/18 13:32 Freq: Status: Active Protocol: Document 05/17/18 14:30 MDD (Rec: 05/17/18 15:37 MDD [id number]) Current Condition History of Current Condition Onset Date last few years Current Complaints Pt complains of fatigue in LE' s, decreased endurance and worsening balance History of Current Condition Pt comes in with his , Candice. They report multiple concerns. He notes intermittent low back pain that is worse in the morning and improves as the day goes on. It does not limit his activity, but he is concerned it may be having an affect on his legs (ie nerve compression /injury). Denies radiating pain, numbness/tingling in his legs or b/b changes. Does note some level of urgency incontinence at baseline. He had a porcine valve replacement a few years ago and continues to participate in cardiac rehab 2x per week. Notes that his legs fatigue more quickly when walking. reports they rarely walk together, but she usually has to wait for him because he is slow. Notes he was able to walk at good pace on level ground x 25 minutes yesterday without much trouble. Also reports falling 4-5 times in last 6 month. Denies dizziness, but feels unbalanced. No injuries so far due to falls. No use of an assistive device. Prior Treatments and Tests NA Future Testing and Treatments Planned NA Treatment Goals Patient/Caregiver Goals To be able to keep up with his . Decrease falls. Prior Functional Status Baseline Function- ADL's Independent Baseline Function- Mobility Independent Baseline Function- Recreation/Hobbies in spring, fall and winter attends an exercise class 2x per week in addition to cardiac rehab 2x per week. PT-OP-C Subjective Start: 05/17/18 13:32 Freq: Status: Active Protocol: Document 08/10/18 13:56 EA (Rec: 08/10/18 14:33 EA [id number]) OP-PT Subjective Patient Comments Patient Comments Pt reports unable to come to PT session in the last 2 weeks due to nose surgery; states that he wants to focus on his balance; states low back is much feeling better now. Pt also want to know if he needs to cont. his therapy base on his current stability. Patient Reported Progress Improving PT-OP-D Balance Start: 05/17/18 13:32 Freq: Status: Active Protocol: Document 08/10/18 15:20 EA (Rec: 08/10/18 15:20 EA [id number]) OP-PT Balance Assessment Sitting Balance Static Sitting Balance Ability Normal Dynamic Sitting Balance Ability Normal Standing Balance Static Standing Balance Ability Normal Dynamic Standing Balance Ability Normal Device Used none Standing Balance Comments Tandem stance with eyes close: > 3secs Tandem walk: yes able Gait index: Low risk fall results Balance Tests Chandler Balance Test Chandler Impairment Rating 1 to 19% Impaired (Score 45-55 ) [place] Fall Scale Copyright Permission Gage TREVINO, Gage RM, Lora SJ. Development of a scale to identify the fall- prone patient. Can J Aging 1989;8;366-7. Pradip Almonte (2009). Preventing patient falls. (2nd ed). [place]: [place]. PT-OP-G Mobility & Gait Start: 05/17/18 13:32 Freq: Status: Active Protocol: Document 08/10/18 15:20 EA (Rec: 08/10/18 15:22 EA [id number]) OP Gait Assessment Gait Gait Assistance Required: Independent Assistive Devices Assistive Device None Gait Deviations General Gait Pattern Within Normal Limits Factors Limiting Gait Function Factors Limiting Gait Function Decreased Strength PT-OP-M Strength Start: 05/17/18 13:32 Freq: Status: Active Protocol: Document 05/17/18 14:30 MDD (Rec: 05/17/18 15:37 MDD [id number]) Hip Strength Hip Manual Muscle Testing Right Flexion (L2) 5 Normal Extension (S1) 5 Normal Abduction 5 Normal External Rotation 5 Normal Internal Rotation 5 Normal Left Flexion (L2) 5 Normal Extension (S1) 5 Normal Abduction 5 Normal External Rotation 5 Normal Internal Rotation 5 Normal Knee Strength Knee Manual Muscle Testing Right Flexion (S2) 5 Normal Extension (L3) 5 Normal Left Flexion (S2) 5 Normal Extension (L3) 5 Normal Ankle/Foot Strength Ankle and Foot Manual Muscle Testing Right Dorsiflexion (L4) 5 Normal Reason Not Measured WFL Left Dorsiflexion (L4) 5 Normal Reason Not Measured WFL PT-OP-T Assessment and Plan Start: 05/17/18 13:32 Freq: Status: Active Protocol: Document 08/10/18 15:26 EA (Rec: 08/10/18 15:39 EA [id number]) Physical Therapy Assessment Rehab Potential Rehabilitation Potential Excellent Impairments Impairments Balance Strength Goals Three Impairment activity tolerance Short Term Goal (STG) Pt to report ability to walk up to 40 minutes without fatigue STG Duration 6 weeks LTG Duration goal reached Two Impairment Balance Short Term Goal (STG) Pt to improve Chandler balance score to 52/56 to indicate decreased fall risk. STG Duration 6 weeks LTG Duration Goal reached One Impairment Activity Tolerance Short Term Goal (STG) Pt will demonstrate ability to perform at least 11 sit to stands in 30 seconds. STG Duration 4 weeks [facility] Goal (LTG) Pt will increase 30 second sit to stand test by at least 5 reps LTG Duration 6 weeks Goal reached Assessment Summary Assessment Pt exhibits improved gait and dynamic balance wiht no signs of instability during the session. Patient was advised to maitain cardiovascular class three times a week and regular home exercises program for balance and strength. Pt is good to be discharged at this time. Physical Therapy Plan Frequency and Duration Frequency of Treatment 1x/Week Duration of Treatment 5 wks Plan of Care Start Date 07/11/18 Plan of Care End Date 08/15/18 Discharge Physical Therapy Discharge Reasons Goals Met Discharge Comments Patient does not require further skilled PT and may benefit with cardio class and HEP for balance and strength exercises.
== END 2018-10-31 16:09 ==
LOC: PHYS 13:45
PROVIDERS: PCP Family Medicine; Visit Provider Family Medicine
DX: M54.5 Low back pain (principal)
CPT/HCPCS: 97110; 97112; 97161; 97530

== ENCOUNTER → 2018-09-29 08:03 | Outpatient (CLI) | payer MEDICARE, OTHER, SELFPAY ==
[2018-09-29 09:36] LABS: Add Manual Diff / Slide Review NO; Eosinophils Percent Auto 2.5 % (2-4); Hematocrit 43.8 % (41-53); Hemoglobin 14.8 g/dL (13.5-17.5); Lymphocytes Percent Auto 12.4 % (25-40); Mean Corpuscular HGB Conc 33.7 % (30-36); Mean Corpuscular Hemoglobin 29.5 PG (26-34); Mean Corpuscular Volume 87.7 fL (80-100); Monocytes Percent Auto 6.9 % (3-14); Neutrophils Absolute Auto 5100 /uL (3000-5900); Neutrophils Percent Auto 77.2 % (50-75); Platelet Count 239 X10^3/uL (150-400); Red Cell Distribution Width 14.3 % (11.6-14.8); White Blood Cell Count 6.6 X10^3/uL (4.5-11.0)
[2018-09-29 09:54] LABS: Hemoglobin A1C% w Est Avg Glu 8.8 % (4.0-6.0)
[2018-09-29 10:34] LABS: Alanine Aminotransferase 77 IU/L (21-72); Albumin 4.5 g/dL (3.5-5.0); Albumin Globulin Ratio 1.4 (1.0-2.8); Alkaline Phosphatase 93 U/L (38-126); Aspartate Aminotransferase 44 IU/L (17-59); BUN Creatinine Ratio 22.5 (6-22); Bilirubin Total 0.6 mg/dL (0.2-1.3); Blood Urea Nitrogen 18 mg/dL (9-20); Calcium 10.1 mg/dL (8.4-10.2); Carbon Dioxide 33 mmol/L (22-32); Chloride 99 mmol/L (98-107); Cholesterol 247 mg/dL (140-199); Estimated Glomerular Filt Rate > 60.0 mL/min (>60); Globulin 3.3 g/dL (1.7-4.1); Glucose 227 mg/dL (80-110); HDL Cholesterol 40 mg/dL (40-60); HEMOLYSIS < 15 (0-50); LDL Cholesterol Calculated 151 mg/dL (<100); Potassium 4.1 mmol/L (3.4-5.1); Sodium 144 mmol/L (137-145); Total Protein 7.8 g/dL (6.3-8.2); Triglycerides 281 mg/dL (35-150)
[2018-09-29 10:55] LABS: T4 Total Thyroxine 8.01 ug/dL (5.5-11.0); T7 (Free Thyroxine Index) 2.53 (1.65-3.89); Triiodothryronine T3 Uptake 31.6 % (23.5-40.5)
[2018-09-29 11:08] LABS: Thyroid Stimulating Hormone 1.91 uIU/mL (0.47-4.68)
[2018-09-29 11:23] LABS: Vitamin B12 652 pg/mL (239-931)
== END ==
PROVIDERS: PCP Family Medicine; Visit Provider Family Medicine
DX: R53.83 Other fatigue (principal)
CPT/HCPCS: 36415; 80053; 80061; 82607; 83036; 84436; 84443; 84479; 85025

== ENCOUNTER → 2018-09-30 13:35 | Outpatient (CLI) | payer MEDICARE, OTHER, SELFPAY ==
--- NOTE | 2018-09-30 | DI.CT.S_ITS ---
PROCEDURE: CT CHEST WO CON INDICATIONS: Atherosclerosis of coronary artery bypass graft(s) TECHNIQUE: Noncontrast 5 mm thick sections acquired from the pulmonary apices to the posterior costophrenic angles. 7 mm thick coronal and sagittal MIP reformats were then acquired. For radiation dose reduction, the following was used: automated exposure control, adjustment of mA and/or kV according to patient size. COMPARISON: [facility], CR, XR CHEST 2V, 07/01/2018, 12:53. FINDINGS: Image quality: Excellent. Lungs and pleura: No acute air space opacities. 2-3 mm calcified granulomas noted in the lungs bilaterally. 6 mm calcified granuloma noted in the posterior aspect of the right upper lobe. No pleural effusions or pneumothorax. Central and peripheral airways are patent and normal in caliber. Mediastinum: Heart size is normal. Atherosclerotic calcifications are noted in the aorta, great vessels and the coronary vasculature. Aortic valve prosthesis noted. No pericardial effusion. No mediastinal adenopathy by size criteria. Calcified lymph nodes in the mediastinum compatible sequela prior granulomatous disease. Thoracic aorta and central pulmonary arteries are normal in size. Esophagus is normal in caliber. No hiatal hernia. Bones and chest wall: Median sternotomy wires noted. No suspicious bony lesions. No vertebral body compression fractures. Spine degenerative disc disease and facet arthropathy. No axillary or supraclavicular adenopathy by size criteria. Thyroid gland is within normal limits. Abdomen: The partially visualized gallstone is noted in the gallbladder. Numerous punctate calcifications noted in the liver and spleen compatible with sequela prior granulomatous disease. IMPRESSION: 1. Atherosclerosis including dense atherosclerotic calcifications in the coronary vasculature. 2. Status post prosthetic aortic valve placement and CABG procedure. 3. Sequela of chronic granulomatous disease involving the lungs bilaterally, mediastinal lymph nodes, spleen and liver. 4. Cholelithiasis. Dictated by: Kindra Fleming MD, PhD on 09/30/2018 at 15:57 Approved by: Kindra Fleming MD, PhD on 09/30/2018 at 16:13
== END ==
PROVIDERS: PCP Family Medicine; Visit Provider Family Medicine
DX: I25.810 Atherosclerosis of coronary artery bypass graft(s) without angina pectoris (principal); I70.0 Atherosclerosis of aorta; K80.80 Other cholelithiasis without obstruction; Z95.2 Presence of prosthetic heart valve
CPT/HCPCS: 71250

== ENCOUNTER 2019-09-13 15:02 | Emergency (ER) | payer MEDICARE, OTHER, SELFPAY ==
[2019-09-13 15:02] VITALS: BP 188/103; PULSE 90; RESP 20; O2SAT 96; BMI 32.3
[2019-09-13 15:17] VITALS: TEMP 37.1
--- NOTE | 2019-09-13 15:39 | ED_ITS ---
HPI - Neuro Symptoms/Deficit General Chief Complaint: Neuro Symptoms/Deficit Stated Complaint: unsteady gait for 2 weeks Time Seen by Provider: 09/13/19 15:18 Source: patient Mode of arrival: Wheelchair Limitations: no limitations History of Present Illness HPI Narrative: Patient is a 79-year-old male here for evaluation of symptoms where he describes that he feels like he is falling forward. He states this has been going on for several weeks now however worsening over the past 2 weeks. No other associated symptoms. He does not describe any vertigo-like sensations. No chest pain or shortness of breath. Does have cardiac issues. He states he has had to use a cane for the past couple days just for support. Came in today because his made him come in for evaluation. On Anticoagulants: Yes (aspirin) Related Data Home Medications Medication Instructions Recorded Confirmed allopurinol 300 mg tablet 300 mg PO DAILY 04/03/19 09/13/19 amlodipine 5 mg tablet 5 mg PO DAILY 04/03/19 09/13/19 aspirin 81 mg tablet,delayed 81 mg PO DAILY 04/03/19 09/13/19 release escitalopram oxalate 10 mg tablet 10 mg PO DAILY 04/03/19 09/13/19 losartan-hydrochlorothiazide 1 tab PO DAILY 04/03/19 09/13/19 metformin 500 mg tablet 500 mg PO BID 04/03/19 09/13/19 zfuqweqj-ewd-ccwut acid 300 1 tab PO DAILY 04/03/19 09/13/19 mcg-lycopene 600 mcg-lutein 300 mcg tablet nebivolol 5 mg tablet 5 mg PO DAILY 04/03/19 09/13/19 nifedipine 30 mg tablet,extended 30 mg PO DAILY 04/03/19 09/13/19 release sildenafil 100 mg tablet 100 mg PO DAILY PRN 04/03/19 09/13/19 tamsulosin 0.4 mg capsule 0.4 mg PO DAILY 04/03/19 09/13/19 docusate sodium [Stool Softener] 100 mg PO DAILY 09/13/19 09/13/19 finasteride 5 mg PO DAILY 09/13/19 09/13/19 Allergies Allergy/AdvReac Type Severity Reaction Status Date / Time No Known Drug Allergies Allergy Verified 09/13/19 15:14 Review of Systems Constitutional Constitutional: Denies fatigue, Denies fever(s), Denies frequent falls, Denies headache(s) and Denies weakness Eyes Eyes: Denies change in vision, Denies diplopia and Denies eye pain ENT Ears, Nose, Mouth, and Throat: Denies vertigo, Denies dizziness, Denies headache(s) and Reports disequilibrium Cardiovascular Cardiovascular: Denies chest pain, Denies syncope, Denies edema, Denies irregular heart rhythm, Denies palpitations and Denies dyspnea Respiratory Respiratory: Denies cough and Denies dyspnea Gastrointestinal Gastrointestinal: Denies abdominal pain, Denies nausea and Denies vomiting Genitourinary Genitourinary: Denies dysuria Musculoskeletal Musculoskeletal: Reports abnormal gait, Denies myalgias, Denies arthralgias, Denies numbness and Denies tingling Integumentary/Breasts Skin/Breast: Denies lesions and Denies rash Neurologic Neurologic: Denies abnormal movements, Denies abnormal speech, Reports abnormal gait, Denies behavioral changes, Denies confusion, Denies vertigo, Denies dizziness, Denies syncope, Denies frequent falls, Denies headache(s), Denies memory loss, Denies numbness, Denies tingling, Denies paresthesias, Denies tremor(s), Reports disequilibrium and Denies weakness Psychiatric Psychiatric: Denies behavioral changes, Denies confusion and Denies memory loss Endocrine Endocrine: Denies fatigue and Denies palpitations Hematologic/Lymphatic Hematologic/Lymphatic: Denies easy bleeding and Denies easy bruising Patient History Medical History Coronary artery disease (Acute) Hypertension (Acute) Social History marital status: lives independently: Yes Exam Initial Vital Signs Initial Vital Signs: Vital Signs Pulse Rate 90 09/13/19 15:02 Respiratory Rate 20 09/13/19 15:02 Blood Pressure 188/103 H 09/13/19 15:02 Pulse Oximetry 96 09/13/19 15:02 Const General: cooperative, comfortable and well developed Orientation: alert, awake and oriented x3 HENMT Head: normal to inspection and normocephalic Resp Effort & Inspection: normal respiratory effort Auscultation: clear to auscultation bilaterally Cardio Rate: regular rate Rhythm: regular rhythm Pulses: radial pulses present GI Inspection: non-distended Palpation: soft and No firm Skin Lesions: no lesions Rashes: no rashes Neuro General: alert, awake and oriented x3 Cranial Nerves: CN's II-XI intact bilaterally Cognition: normal cognition Speech: speech normal Gait: shuffling Motor: muscle tone normal throughout Sensory Exam: no sensory deficits noted Coordination: [id number]-lq-iilt test normal Extrem General: normal to inspection and capillary refill normal Psych Appearance: grossly normal and well kempt Course Orders Ordered: ED Orders 09/13/19 15:20 Basic Metabolic Panel Stat Complete Blood Count AUTO DIFF Stat 09/13/19 15:24 EKG-12 Lead Routine 09/13/19 15:40 CT head/brain wo con Stat Vital Signs Vital signs: Vital Signs - 8 hr 09/13/19 15:02 09/13/19 15:17 09/13/19 16:00 Temperature 98.7 F Pulse Rate 90 94 H Respiratory Rate 20 22 Blood Pressure 188/103 H Blood Pressure [Right Arm] 177/94 H Pulse Oximetry 96 97 09/13/19 16:30 09/13/19 17:08 Temperature Pulse Rate 84 87 Respiratory Rate 22 Blood Pressure Blood Pressure [Right Arm] 159/101 H 194/113 H Pulse Oximetry 100 98 MDM - Neuro Symptoms/Deficit Lab Data Attestation: I reviewed the patient's lab results. Result diagrams: 09/13/19 15:20 09/13/19 15:20 Labs: Lab Results 09/13/19 09/13/19 Range/Units 15:20 15:20 WBC 6.8 (4.5-11.0) X10^3/uL RBC 5.09 (4.5-5.9) X10^6/uL Hgb 15.0 (13.5-17.5) g/dL Hct 43.0 (41-53) % MCV 84.5 (80-100) fL MCH 29.5 (26-34) PG MCHC 35.0 (30-36) % RDW 13.7 (11.6-14.8) % Plt Count 235 (150-400) X10^3/uL Neut % (Auto) 78.0 H (50-75) % Lymph % (Auto) 12.6 L (25-40) % [place] % (Auto) 7.3 (3-14) % Eos % (Auto) 1.5 L (2-4) % Baso % (Auto) 0.6 (0-2) % Neut # (Auto) 5300 (7724-4320) /uL Lymph # (Auto) 900 L (5997-3221) /uL [place] # (Auto) 500 (0-900) /uL Eos # (Auto) 100 (0-450) /uL Baso # (Auto) 0 (0-100) /uL Sodium 139 (137-145) mmol/L Potassium 3.6 (3.4-5.1) mmol/L Chloride 103 (98-107) mmol/L Carbon Dioxide 28 (22-32) mmol/L BUN 18 (9-20) mg/dL Creatinine 0.70 (0.66-1.25) mg/dL Estimated GFR > 60.0 (>60) mL/min BUN/Creatinine Ratio 25.7 H (6-22) Glucose 214 H (80-110) mg/dL Calcium 9.8 (8.4-10.2) mg/dL Imaging Data CT scan - head: Radiologist's impression: [place] [address] CT Scan Report Signed Patient: Carlos Soria CMR#: [id number] : 2Acct:[id number] Age/Sex: 79 / MDate of Service: 09/13/19 Loc: ED Accession Number: [id number] Procedure: CT head/brain wo con Ordering Provider: Dakota López D.O. PROCEDURE: CT HEAD/BRAIN WO CON INDICATIONS: Unsteady gait TECHNIQUE: Noncontrast 4.5 mm thick angled axial sections acquired from the foramen magnum to the vertex, with coronal and sagittal reformats. For radiation dose reduction, the following was used: automated exposure control, adjustment of mA and/or kV according to patient size. COMPARISON: [facility], , BRAIN WITHOUT CONTRAST, 09/06/2014, 16:14. FINDINGS: Image quality: Excellent. CSF spaces: Basal cisterns are patent. No extra-axial fluid collections. The ventricles are symmetric in size and shape. Brain: No intracranial bleeds or masses. There is moderate cerebral volume loss for age, with resultant ventricular and sulcal prominence. There are moderate periventricular and deep white matter chronic small vessel ischemic changes. There is intracranial internal carotid artery and vertebral artery atherosclerosis. Skull and face: Calvarium and visualized facial bones appear intact, without suspicious lesions. Sinuses: Visualized sinuses and mastoids are clear. IMPRESSION: No acute intracranial disease process. Dictated by: Kindra Fleming MD, PhD on 09/13/2019 at 16:09 Approved by: Kindra Fleming MD, PhD on 09/13/2019 at 16:15 ECG Data Attestation: I personally reviewed and interpreted this ECG as follows: Prior ECG tracings: not available for review Interpretation: Sinus rhythm Ventricular rate of 92 Normal axis Normal QRS Normal QTC No ST T wave changes MDM Narrative Medical decision making narrative: Patient has a normal head CT. His symptoms have been going on for at least 2 weeks if not longer than that. Patient was able to ambulate to the bathroom however did seem to be somewhat unsteady. I feel that he would benefit from a walker. Has a normal neurologic exam otherwise. Patient not a candidate for tPA. I do feel the patient needs an MRI however we are unable to get that in the emergency department I do feel this can be done as an outpatient. For the patient he should talk with his primary doctor about getting this. He was given a walker. We also discussed preventing falls at home. Both he and his expressed understanding and agreement plan. Discharge Plan Departure Patient Disposition: Home Clinical Impression: Ataxia Discharge Date/Time: 09/13/19 17:23 Instructions: How to Prevent Falls Activity Restrictions/Additional Instructions: I recommend that you use the walker. It is important that you avoid falling. I do recommend that you continue all of your medications as directed. You can add Claritin/loratadine to your medicine regimen like we discussed. I recommend that tomorrow you contact your primary provider for follow-up to discuss further workup to include MRI and physical therapy. Return to the emergency department for any new or worsening symptoms Prescriptions: No Action metformin 500 mg tablet 500 mg PO BID RF: 0 nifedipine 30 mg tablet extended release 30 mg PO DAILY RF: 0 amlodipine 5 mg tablet 5 mg PO DAILY RF: 0 aspirin [Adult Low Dose Aspirin] 81 mg tablet,delayed release (DR/EC) 81 mg PO DAILY RF: 0 sildenafil [Viagra] 100 mg tablet 100 mg PO DAILY PRN (Reason: as directed) RF: 0 tamsulosin [Flomax] 0.4 mg capsule 0.4 mg PO DAILY RF: 0 allopurinol 300 mg tablet 300 mg PO DAILY RF: 0 escitalopram oxalate 10 mg tablet 10 mg PO DAILY RF: 0 Bystolic 5 mg tablet 5 mg PO DAILY RF: 0 Centrum Silver Men 300-600-300 mcg tablet 1 tab PO DAILY RF: 0 losartan-hydrochlorothiazide 1 tab PO DAILY RF: 0 finasteride 5 mg tablet 5 mg PO DAILY RF: 0 docusate sodium [Stool Softener] 100 mg Capsule 100 mg PO DAILY RF: 0 Referrals: Martín West MD [Primary Care Provider] -
[2019-09-13 15:56] LABS: Add Manual Diff / Slide Review NO; Basophils Absolute Auto 0 /uL (0-100); Basophils Percent Auto 0.6 % (0-2); Eosinophils Absolute Auto 100 /uL (0-450); Eosinophils Percent Auto 1.5 % (2-4); Lymphocytes Absolute Auto 900 /uL (1100-4500); Lymphocytes Percent Auto 12.6 % (25-40); Mean Corpuscular Hemoglobin 29.5 PG (26-34); Mean Corpuscular Volume 84.5 fL (80-100); Monocytes Absolute Auto 500 /uL (0-900); Monocytes Percent Auto 7.3 % (3-14); Neutrophils Absolute Auto 5300 /uL (1500-7000); Platelet Count 235 X10^3/uL (150-400); Red Blood Cell Count 5.09 X10^6/uL (4.5-5.9); Red Cell Distribution Width 13.7 % (11.6-14.8); White Blood Cell Count 6.8 X10^3/uL (4.5-11.0)
[2019-09-13 16:00] VITALS: BP 177/94; PULSE 94; RESP 22; O2SAT 97
[2019-09-13 16:30] VITALS: BP 159/101; PULSE 84; O2SAT 100
[2019-09-13 16:47] LABS: BUN Creatinine Ratio 25.7 (6-22); Blood Urea Nitrogen 18 mg/dL (9-20); Calcium 9.8 mg/dL (8.4-10.2); Carbon Dioxide 28 mmol/L (22-32); Chloride 103 mmol/L (98-107); Estimated Glomerular Filt Rate > 60.0 mL/min (>60); Glucose 214 mg/dL (80-110); HEMOLYSIS 17 (0-50); Potassium 3.6 mmol/L (3.4-5.1); Sodium 139 mmol/L (137-145)
[2019-09-13 17:08] VITALS: BP 194/113; PULSE 87; RESP 22; O2SAT 98
== END 2019-09-13 17:23 | disposition home or self-care (01) ==
PROVIDERS: Emergency Provider Emergency Medicine; PCP Family Medicine
DX: R27.0 Ataxia, unspecified (principal); I10 Essential (primary) hypertension; I25.10 Atherosclerotic heart disease of native coronary artery without angina pectoris; Z79.82 Long term (current) use of aspirin
CPT/HCPCS: 36415; 70450; 80048; 85025; 93005; 99283; 99285

== ENCOUNTER → 2019-12-14 10:03 | Outpatient (CLI) | payer MEDICARE, OTHER, SELFPAY ==
[2019-12-14 11:58] LABS: Add Manual Diff / Slide Review NO; Basophils Absolute Auto 0 /uL (0-100); Basophils Percent Auto 0.4 % (0-2); Eosinophils Absolute Auto 100 /uL (0-450); Eosinophils Percent Auto 1.9 % (2-4); Hematocrit 45.2 % (41-53); Hemoglobin 15.8 g/dL (13.5-17.5); Lymphocytes Absolute Auto 700 /uL (1100-4500); Lymphocytes Percent Auto 9.5 % (25-40); Mean Corpuscular HGB Conc 34.9 % (30-36); Mean Corpuscular Hemoglobin 29.7 PG (26-34); Mean Corpuscular Volume 85.1 fL (80-100); Monocytes Absolute Auto 400 /uL (0-900); Monocytes Percent Auto 5.8 % (3-14); Neutrophils Absolute Auto 6100 /uL (1500-7000); Neutrophils Percent Auto 82.4 % (50-75); Platelet Count 233 X10^3/uL (150-400); Red Blood Cell Count 5.31 X10^6/uL (4.5-5.9); Red Cell Distribution Width 14.1 % (11.6-14.8); White Blood Cell Count 7.4 X10^3/uL (4.5-11.0)
[2019-12-14 12:26] LABS: BUN Creatinine Ratio 26.7 (6-22); Blood Urea Nitrogen 16 mg/dL (9-20); Calcium 10.2 mg/dL (8.4-10.2); Carbon Dioxide 29 mmol/L (22-32); Chloride 98 mmol/L (98-107); Cholesterol 299 mg/dL (140-199); Estimated Glomerular Filt Rate > 60.0 mL/min (>60); Glucose 234 mg/dL (80-110); HDL Cholesterol 45 mg/dL (40-60); HEMOLYSIS < 15 (0-50); Potassium 3.7 mmol/L (3.4-5.1); Sodium 141 mmol/L (137-145); Triglycerides 452 mg/dL (35-150)
[2019-12-14 12:57] LABS: Prostate Specific Antigen Scrn 3.61 ng/mL (0.1-4.0)
[2019-12-14 13:15] LABS: Vitamin B12 626 pg/mL (239-931)
[2019-12-14 13:16] LABS: Alanine Aminotransferase 43 IU/L (<50); Albumin 4.6 g/dL (3.5-5.0); Albumin Globulin Ratio 1.4 (1.0-2.8); Alkaline Phosphatase 127 U/L (38-126); Aspartate Aminotransferase 33 IU/L (17-59); Bilirubin Total 0.9 mg/dL (0.2-1.3); Globulin 3.2 g/dL (1.7-4.1); Total Protein 7.8 g/dL (6.3-8.2)
== END ==
PROVIDERS: PCP Family Medicine; Referring Provider Family Medicine; Visit Provider Family Medicine
DX: I10 Essential (primary) hypertension (principal); R42 Dizziness and giddiness; E11.65 Type 2 diabetes mellitus with hyperglycemia; R97.20 Elevated prostate specific antigen [PSA]; Z12.5 Encounter for screening for malignant neoplasm of prostate
CPT/HCPCS: 36415; 80053; 80061; 82607; 85025; G0103

== ENCOUNTER → 2019-12-15 15:36 | Outpatient (CLI) | payer MEDICARE, OTHER, SELFPAY ==
--- NOTE | 2019-12-15 | DI.MRI.S_ITS ---
PROCEDURE: MR ANGIO NECK W CON INDICATIONS: Dizziness and giddiness TECHNIQUE: Axial and sagittal TruFISP through the neck. Coronal dynamic MRA after the administration of contrast in the arterial and venous phases, with rotating 3-dimensional maximum intensity projection (MIP) reformats constructed from subtraction images. COMPARISON: [facility], , CAROTID ARTERY DOPPLER BILAT, 07/03/2013, 14:00. FINDINGS: Image quality: Mildly degraded by patient motion. Carotid system: Great vessels demonstrate bovine variant anatomy as they arise from the aortic arch. The origins of the common carotid arteries appear normal. The calibers and courses of the common carotid arteries are likewise normal. Mild atherosclerotic irregularity noted in the origins of the internal carotid arteries bilaterally which causes less than 50% stenosis of the vessels. Incidental note made of the frontal loops and the cervical segments of the internal carotid arteries bilaterally. The internal carotid arteries are widely patent up to the [place]. Posterior circulation: Atherosclerotic irregularity noted in the origin of the right vertebral artery which causes high grade stenosis. There is slightly diminished flow in the right vertebral artery distal to the high-grade stenosis in the origin of the vessel. Origin the left vertebral artery appears fully patent. The more superior portions of the vertebral arteries demonstrate normal course and caliber. Vertebral arteries join to form a normal appearing basilar artery. Miscellaneous: Subclavian arteries are patent throughout. Pre-contrast images through the neck demonstrate no soft tissue abnormalities. IMPRESSION: 1. Less than 50% stenosis of the origins of the internal carotid arteries bilaterally. 2. 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 3. Left vertebral artery is fully patent. Any quantitative measurements of stenosis were performed using NASCET criteria. Dictated by: Kindra Fleming MD, PhD on 12/15/2019 at 16:43 Approved by: Kindra Fleming MD, PhD on 12/15/2019 at 17:00
== END ==
PROVIDERS: PCP Family Medicine; Referring Provider Family Medicine; Visit Provider Family Medicine
DX: I65.23 Occlusion and stenosis of bilateral carotid arteries (principal); R42 Dizziness and giddiness
CPT/HCPCS: 70548; A9579

== ENCOUNTER → 2020-03-28 12:57 | Outpatient (CLI) | payer MEDICARE, OTHER, SELFPAY ==
[2020-03-28 13:38] LABS: Alanine Aminotransferase 32 IU/L (<50); Albumin 4.1 g/dL (3.5-5.0); Albumin Globulin Ratio 1.3 (1.0-2.8); Alkaline Phosphatase 97 U/L (38-126); Aspartate Aminotransferase 29 IU/L (17-59); Bilirubin Total 0.7 mg/dL (0.2-1.3); Blood Urea Nitrogen 17 mg/dL (9-20); Calcium 10.4 mg/dL (8.4-10.2); Carbon Dioxide 29 mmol/L (22-32); Chloride 99 mmol/L (98-107); Estimated Glomerular Filt Rate > 60.0 mL/min (>60); Globulin 3.2 g/dL (1.7-4.1); Glucose 233 mg/dL (80-110); HEMOLYSIS < 15 (0-50); Potassium 3.7 mmol/L (3.4-5.1); Sodium 137 mmol/L (137-145); Total Protein 7.3 g/dL (6.3-8.2)
[2020-03-28 13:47] LABS: Add Manual Diff / Slide Review NO; Basophils Absolute Auto 0 /uL (0-100); Basophils Percent Auto 0.4 % (0-2); Eosinophils Absolute Auto 100 /uL (0-450); Eosinophils Percent Auto 1.3 % (2-4); Hematocrit 42.4 % (41-53); Hemoglobin 15.1 g/dL (13.5-17.5); Lymphocytes Absolute Auto 800 /uL (1100-4500); Lymphocytes Percent Auto 12.4 % (25-40); Mean Corpuscular HGB Conc 35.7 % (30-36); Mean Corpuscular Hemoglobin 30.5 PG (26-34); Mean Corpuscular Volume 85.6 fL (80-100); Monocytes Absolute Auto 400 /uL (0-900); Monocytes Percent Auto 6.6 % (3-14); Neutrophils Absolute Auto 5300 /uL (1500-7000); Neutrophils Percent Auto 79.3 % (50-75); Platelet Count 212 X10^3/uL (150-400); Red Blood Cell Count 4.95 X10^6/uL (4.5-5.9); Red Cell Distribution Width 13.8 % (11.6-14.8); White Blood Cell Count 6.7 X10^3/uL (4.5-11.0)
[2020-03-28 13:53] LABS: Hemoglobin A1C% w Est Avg Glu 8.9 % (4.0-6.0)
== END ==
PROVIDERS: PCP Family Medicine; Referring Provider Family Medicine; Visit Provider Family Medicine
DX: E78.00 Pure hypercholesterolemia, unspecified (principal); E11.9 Type 2 diabetes mellitus without complications; Z79.899 Other long term (current) drug therapy; E66.9 Obesity, unspecified; I10 Essential (primary) hypertension
CPT/HCPCS: 36415; 80053; 83036; 85025

== ENCOUNTER 2020-04-03 10:10 | Emergency (ER) | payer MEDICARE, OTHER, SELFPAY ==
[2020-04-03 10:20] VITALS: BP 210/116; PULSE 102; RESP 24; TEMP 36.8; O2SAT 94; BMI 15.0
[2020-04-03] MEDS: ONDANSETRON 4 MG ODT PO (10:32)
[2020-04-03] MEDS: SODIUM CHLORIDE 0.9% 1,000 ML 1000 ML IV (10:50)
[2020-04-03 10:51] LABS: Add Manual Diff / Slide Review NO; Basophils Absolute Auto 0 /uL (0-100); Basophils Percent Auto 0.6 % (0-2); Eosinophils Absolute Auto 0 /uL (0-450); Eosinophils Percent Auto 0.6 % (2-4); Hematocrit 44.9 % (41-53); Hemoglobin 15.7 g/dL (13.5-17.5); Lymphocytes Absolute Auto 700 /uL (1100-4500); Lymphocytes Percent Auto 8.3 % (25-40); Mean Corpuscular HGB Conc 34.9 % (30-36); Mean Corpuscular Hemoglobin 29.6 PG (26-34); Mean Corpuscular Volume 84.7 fL (80-100); Monocytes Absolute Auto 400 /uL (0-900); Monocytes Percent Auto 4.5 % (3-14); Neutrophils Absolute Auto 7300 /uL (1500-7000); Platelet Count 227 X10^3/uL (150-400); Red Cell Distribution Width 13.8 % (11.6-14.8); White Blood Cell Count 8.4 X10^3/uL (4.5-11.0)
[2020-04-03 11:06] LABS: Alanine Aminotransferase 45 IU/L (<50); Albumin 4.4 g/dL (3.5-5.0); Albumin Globulin Ratio 1.3 (1.0-2.8); Alkaline Phosphatase 116 U/L (38-126); Aspartate Aminotransferase 47 IU/L (17-59); BUN Creatinine Ratio 23.3 (6-22); Bilirubin Total 1.1 mg/dL (0.2-1.3); Blood Urea Nitrogen 14 mg/dL (9-20); Calcium 9.7 mg/dL (8.4-10.2); Carbon Dioxide 24 mmol/L (22-32); Chloride 101 mmol/L (98-107); Estimated Glomerular Filt Rate > 60.0 mL/min (>60); Globulin 3.5 g/dL (1.7-4.1); Glucose 226 mg/dL (80-110); HEMOLYSIS 22 (0-50); Lipase 33 U/L (23-300); Potassium 3.5 mmol/L (3.4-5.1); Sodium 137 mmol/L (137-145); Total Protein 7.9 g/dL (6.3-8.2)
[2020-04-03 11:15] LABS: Troponin I 0.016 ng/mL (0.01-0.034)
--- NOTE | 2020-04-03 11:31 | DI.RAD.S_ITS ---
PROCEDURE: XR ACUTE ABDOMEN SERIES INDICATIONS: n/v, constipation, hx abd surgery TECHNIQUE: One view chest and two views of the abdomen were acquired. COMPARISON: [facility], CT, CT CHEST WO CON, 09/30/2018, 13:33. [facility], CT, CT HEAD/BRAIN WO CON, 09/13/2019, 15:40. FINDINGS: Surgical changes and devices: Sternotomy wires, presumed prior CABG.. Chest: Lungs are abnormal with what appears to be a mild pulmonary edema pattern in this patient with prior sternotomy.. Heart size is normal. No pleural effusions. No pneumoperitoneum. Abdomen: Bowel gas pattern is normal. No suspicious calcifications. Visualized solid organ contours appear normal. Bones: No suspicious bony lesions. IMPRESSION: Lung parenchyma shows what appears to be a mild pulmonary edema pattern. Prior sternotomy, presumed prior CABG. Nonspecific bowel gas pattern, mild to moderate colonic obstipation again noted. Dictated by: Felipe Cuevas M.D. on 04/03/2020 at 12:08 Approved by: Felipe Cuevas M.D. on 04/03/2020 at 12:09
--- NOTE | 2020-04-03 11:50 | ED_ITS ---
HPI - Nausea/Vomiting/Diarrhea <Rommel JONNIE Castellanos - Last Filed: 04/03/20 18:31> General Chief complaint: Nausea/Vomiting/Diarrhea Stated complaint: Vomiting and unsteady Time Seen by Provider: 04/03/20 10:28 Source: patient Mode of arrival: Family Vehicle Limitations: no limitations History of Present Illness HPI Narrative: This is a 79-year-old male, former smoker, who presents to ED with his daughter with chief complain of generalized weakness and nausea and vomiting which started yesterday. Daughter states patient had about 2 episodes of vomiting since yesterday afternoon. Denies blood in the emesis. Patient had crackers as dinner last night and had applesauce and water this morning which he could not tolerate. Patient reports patient has not been doing much last 4 rich hs due to Covid 19 pen damage and has been staying home and mostly sitting around. He has been having balance difficulty and now his using a walker/cane. His waiting for neurologist evaluation and daughter is in process of making on appointment for physical therapy. Patient states he has urinary incontinence history which has not been changed and denies other urinary symptoms. Patient denies diarrhea. Patient states he has been having difficult time with bowel movements and now his regular regimen is every 2-3 days which she has to strain a bit. He denies blood in his stool. Denies chest pain, short of breath, dizziness, abdominal pain, fever or chills. Patient states he was sweating like a pig but only with vomiting. Patient has history of diabetes, hypertension, gout, BPH. He has not been taking Bystolic as prescribed since this is not covered by his medical insurance. Patient denies speech difficulty, vision change, headache or weakness to 1 side of his body. The recent A1c is 8.9 according to his daughter. Related Data Home Medications Medication Instructions Recorded Confirmed allopurinol 300 mg tablet 300 mg PO DAILY 04/03/19 09/13/19 amlodipine 5 mg tablet 5 mg PO DAILY 04/03/19 09/13/19 aspirin 81 mg tablet,delayed 81 mg PO DAILY 04/03/19 09/13/19 release escitalopram oxalate 10 mg tablet 10 mg PO DAILY 04/03/19 09/13/19 losartan-hydrochlorothiazide 1 tab PO DAILY 04/03/19 09/13/19 metformin 500 mg tablet 500 mg PO BID 04/03/19 09/13/19 dmbrwwid-nje-xiimg acid 300 1 tab PO DAILY 04/03/19 09/13/19 mcg-lycopene 600 mcg-lutein 300 mcg tablet nebivolol 5 mg tablet 5 mg PO DAILY 04/03/19 09/13/19 nifedipine 30 mg tablet,extended 30 mg PO DAILY 04/03/19 09/13/19 release sildenafil 100 mg tablet 100 mg PO DAILY PRN 04/03/19 09/13/19 tamsulosin 0.4 mg capsule 0.4 mg PO DAILY 04/03/19 09/13/19 docusate sodium [Stool Softener] 100 mg PO DAILY 09/13/19 09/13/19 finasteride 5 mg PO DAILY 09/13/19 09/13/19 Previous Rx's Medication Instructions Recorded ondansetron 4 mg PO Q8H PRN #10 tab 04/03/20 Allergies Allergy/AdvReac Type Severity Reaction Status Date / Time No Known Drug Allergies Allergy Verified 09/13/19 15:14 Review of Systems <JONNIE Chen - Last Filed: 04/03/20 18:31> Review of Systems Narrative: General: Denies fever, chills, fatigue, malaise, (+) sweats with vomiting. HEENT: Denies sinus pain, ear pain, sore throat, difficulty swallowing, dizziness. Respiratory: Denies dyspnea, cough, wheezing, hemoptysis, sputum. Cardiovascular: Denies chest pain, palpitations, orthopnea, edema. Gastrointestinal: See HPI : Denies dysuria, frequency, (+) incontinence, hematuria, urinary retention. Musculoskeletal: Denies weakness, joint pain or bony pain. Skin: Denies rash, skin lesions, or other. Neurologic: Denies weakness, headache, numbness, change in speech, confusion, seizures, incoordination. Psychiatric: No concerning psychosocial issues. 12-point review of systems is negative except for those stated above. Patient History <JONNIE Chen - Last Filed: 04/03/20 18:31> Medical History BPH (benign prostatic hyperplasia) (Acute) Colon cancer (Acute) Coronary artery disease (Acute) Diabetes (Acute) Gout (Acute) Hypertension (Acute) Surgical History Heart valve replaced (Acute) History of appendectomy (Acute) History of colon surgery (Acute) Social History marital status: lives independently: Yes Smoking Status: Former smoker Smoking Status: Former smoker alcohol intake frequency: holidays/special occasions only Substance Use Type: does not use Exam <JONNIE Chen - Last Filed: 04/03/20 18:31> Narrative Exam Narrative: GEN: Alert, oriented x 3, well appearing and nourished, and in no acute distress. Head: Normal cephalic, atraumatic. No scalp or temporal tenderness, palpable mass or rash. EYES: Pupils are equal, round, and reactive to light and accommodation. Extraocular muscles are intact bilaterally. There is no subconjunctival hemorrhage, exudate and sclera non-icteric. ENT: Bilateral auditory canals and tympanic membranes clear. Hearing grossly intact. Nose without bleeding, purulent discharge, septal hematoma or d eviation. Turbinate without erythema or swelling. Facial sinuses nontender to palpate. Mucous membrane moist, no mucosal lesion. Throat without erythema, tonsillar hypertrophy or exudate. Uvula in midline, airway patent. Neck: Trachea in midline. No JVD, non-tender without lymphadenopathy. No masses or thyroid megaly. Supple, non-tender and no meningeal signs. CARDIAC: Normal regular rate and rhythm without murmurs, gallops, or rubs. No chest wall tenderness. No peripheral edema, cyanosis or pallor. Capillary refill is less than 2 seconds. No carotid bruits. RESPIRATORY: Lungs are cleat to auscultate bilaterally. No cough, wheezes, rales, or rhonchi. No stridor, respiratory distress, increase work of breathing, or accessary muscle used. ABD: Abdomen soft, nontender and non-distended. No guarding or rebound tenderness to palpate. Bowel sounds are normal in all 4 quadrants. There is no palpable masses or organomegaly. EXT: Full painless ROM of all extremities with no loss of sensation, strength, effusion or edema. SKIN: Warm, dry, normal color for patient. No erythema, lesions or rash. BACK: Nontender without deformity or crepitance. No flank tenderness. NEUROLOGICAL: Alert and oriented to place, time and person. No facial droops, dysphasia. CN II-XII intact. Strength and sensation symmetric and intact throughout. Cerebellar testing normal. PSYCHIATRIC: Good judgement and reason, without hallucinations, abnormal affect or abnormal behaviors during the examination. Patient is not suicidal. Initial Vital Signs Initial Vital Signs: Vital Signs Temperature 98.3 F 04/03/20 10:20 Pulse Rate 102 H 04/03/20 10:20 Respiratory Rate 24 04/03/20 10:20 Blood Pressure 210/116 H 04/03/20 10:20 Pulse Oximetry 94 04/03/20 10:20 <Dakota López DO - Last Filed: 04/03/20 18:40> Initial Vital Signs Initial Vital Signs: Vital Signs Temperature 98.3 F 04/03/20 10:20 Pulse Rate 102 H 04/03/20 10:20 Respiratory Rate 24 04/03/20 10:20 Blood Pressure 210/116 H 04/03/20 10:20 Pulse Oximetry 94 04/03/20 10:20 Scores <JONNIE Chen - Last Filed: 04/03/20 18:31> GCS [place] coma scale eye opening: Spontaneous [place] coma scale verbal response: Orientated [place] coma scale motor response: Obey commands [place] coma scale total score: 15 Course <JONNIE Chen - Last Filed: 04/03/20 18:31> Orders Ordered: ED Orders 04/03/20 10:34 EKG-12 Lead Stat 04/03/20 10:41 Complete Blood Count AUTO DIFF Stat Comprehensive Metabolic Panel Stat Lipase Stat NT-proBNP (BNP-Adult 18+) Stat Troponin I Stat 04/03/20 11:31 XR acute abdomen series Stat 04/03/20 11:38 Urine Microscopic Stat Discontinued Medications Amlodipine Besylate (Norvasc) 5 mg PO NOW ONE Stop: 04/03/20 12:22 Last Admin: 04/03/20 12:31 Dose: 5 mg Documented by: GRACIE Sodium Chloride (Normal Saline 0.9%) 1,000 mls @ 1,000 mls/hr IV BOLUS ONE Stop: 04/03/20 11:32 Last Infusion: 04/03/20 11:50 Dose: 0 mls/hr Documented by: Admin: 04/03/20 10:50 Dose: 1,000 mls/hr Documented by: ELSIE Losartan Potassium (Cozaar) 100 mg PO NOW ONE Stop: 04/03/20 12:22 Last Admin: 04/03/20 12:31 Dose: 100 mg Documented by: GRACIE Ondansetron HCl (Zofran Odt) 4 mg PO NOW ONE Stop: 04/03/20 10:29 Last Admin: 04/03/20 10:32 Dose: 4 mg Documented by: ELSIE Ondansetron HCl (Zofran) 4 mg IV NOW ONE Stop: 04/03/20 12:22 Last Admin: 04/03/20 12:26 Dose: 4 mg Documented by: GRACIE Vital Signs Vital signs: Vital Signs - 8 hr 04/03/20 12:17 04/03/20 12:31 04/03/20 12:37 Pulse Rate 82 80 82 Respiratory Rate 21 Blood Pressure 174/95 H Blood Pressure [Right Arm] 218/105 H 174/95 H Pulse Oximetry 97 04/03/20 13:00 04/03/20 14:07 Pulse Rate 87 85 Respiratory Rate 16 18 Blood Pressure 151/53 H Blood Pressure [Right Arm] 162/93 H Pulse Oximetry 96 96 <Dakota López DO - Last Filed: 04/03/20 18:40> Orders Ordered: ED Orders 04/03/20 10:34 EKG-12 Lead Stat 04/03/20 10:41 Complete Blood Count AUTO DIFF Stat Comprehensive Metabolic Panel Stat Lipase Stat NT-proBNP (BNP-Adult 18+) Stat Troponin I Stat 04/03/20 11:31 XR acute abdomen series Stat 04/03/20 11:38 Urine Microscopic Stat Discontinued Medications Amlodipine Besylate (Norvasc) 5 mg PO NOW ONE Stop: 04/03/20 12:22 Last Admin: 04/03/20 12:31 Dose: 5 mg Documented by: GRACIE Sodium Chloride (Normal Saline 0.9%) 1,000 mls @ 1,000 mls/hr IV BOLUS ONE Stop: 04/03/20 11:32 Last Infusion: 04/03/20 11:50 Dose: 0 mls/hr Documented by: Admin: 04/03/20 10:50 Dose: 1,000 mls/hr Documented by: ELSIE Losartan Potassium (Cozaar) 100 mg PO NOW ONE Stop: 04/03/20 12:22 Last Admin: 04/03/20 12:31 Dose: 100 mg Documented by: GRACIE Ondansetron HCl (Zofran Odt) 4 mg PO NOW ONE Stop: 04/03/20 10:29 Last Admin: 04/03/20 10:32 Dose: 4 mg Documented by: ELSIE Ondansetron HCl (Zofran) 4 mg IV NOW ONE Stop: 04/03/20 12:22 Last Admin: 04/03/20 12:26 Dose: 4 mg Documented by: GRACIE Vital Signs Vital signs: Vital Signs - 8 hr 04/03/20 12:17 04/03/20 12:31 04/03/20 12:37 Pulse Rate 82 80 82 Respiratory Rate 21 Blood Pressure 174/95 H Blood Pressure [Right Arm] 218/105 H 174/95 H Pulse Oximetry 97 04/03/20 13:00 04/03/20 14:07 Pulse Rate 87 85 Respiratory Rate 16 18 Blood Pressure 151/53 H Blood Pressure [Right Arm] 162/93 H Pulse Oximetry 96 96 MDM - Nausea/Vomiting/Diarrhea <JONNIE Chen - Last Filed: 04/03/20 18:31> Differential Diagnosis Differential diagnosis: Likely other (Bowel obstruction, gastritis, UTI, hyper/hypoglycemia) Medical Records Attestation: I reviewed the patient's medical records. Lab Data Attestation: I reviewed the patient's lab results. Result diagrams: 04/03/20 10:41 04/03/20 10:41 Labs: Lab Results 04/03/20 04/03/20 04/03/20 Range/Units 10:41 10:41 10:41 WBC 8.4 (4.5-11.0) X10^3/uL RBC 5.30 (4.5-5.9) X10^6/uL Hgb 15.7 (13.5-17.5) g/dL Hct 44.9 (41-53) % MCV 84.7 (80-100) fL MCH 29.6 (26-34) PG MCHC 34.9 (30-36) % RDW 13.8 (11.6-14.8) % Plt Count 227 (150-400) X10^3/uL Neut % (Auto) 86.0 H (50-75) % Lymph % (Auto) 8.3 L (25-40) % [place] % (Auto) 4.5 (3-14) % Eos % (Auto) 0.6 L (2-4) % Baso % (Auto) 0.6 (0-2) % Neut # (Auto) 7300 H (3655-5402) /uL Lymph # (Auto) 700 L (7127-6440) /uL [place] # (Auto) 400 (0-900) /uL Eos # (Auto) 0 (0-450) /uL Baso # (Auto) 0 (0-100) /uL Sodium 137 (137-145) mmol/L Potassium 3.5 (3.4-5.1) mmol/L Chloride 101 (98-107) mmol/L Carbon Dioxide 24 (22-32) mmol/L BUN 14 (9-20) mg/dL Creatinine 0.60 L (0.66-1.25) mg/dL Estimated GFR > 60.0 (>60) mL/min BUN/Creatinine Ratio 23.3 H (6-22) Glucose 226 H (80-110) mg/dL Calcium 9.7 (8.4-10.2) mg/dL Total Bilirubin 1.1 (0.2-1.3) mg/dL AST 47 (17-59) IU/L ALT 45 (<50) IU/L Alkaline Phosphatase 116 (38-126) U/L Troponin I 0.016 (0.01-0.034) ng/mL NT-Pro-B Natriuret Pep 243 (<450) pg/mL Total Protein 7.9 (6.3-8.2) g/dL Albumin 4.4 (3.5-5.0) g/dL Globulin 3.5 (1.7-4.1) g/dL Albumin/Globulin Ratio 1.3 (1.0-2.8) Lipase 33 (23-300) U/L Urine RBC (0-5/HPF) Urine WBC (0-5/HPF) Urine Bacteria (None) Ur Culture Indicated? Micro UA Comment 04/03/20 Range/Units 11:38 WBC (4.5-11.0) X10^3/uL RBC (4.5-5.9) X10^6/uL Hgb (13.5-17.5) g/dL Hct (41-53) % MCV (80-100) fL MCH (26-34) PG MCHC (30-36) % RDW (11.6-14.8) % Plt Count (150-400) X10^3/uL Neut % (Auto) (50-75) % Lymph % (Auto) (25-40) % [place] % (Auto) (3-14) % Eos % (Auto) (2-4) % Baso % (Auto) (0-2) % Neut # (Auto) (4196-5223) /uL Lymph # (Auto) (2455-1476) /uL [place] # (Auto) (0-900) /uL Eos # (Auto) (0-450) /uL Baso # (Auto) (0-100) /uL Sodium (137-145) mmol/L Potassium (3.4-5.1) mmol/L Chloride (98-107) mmol/L Carbon Dioxide (22-32) mmol/L BUN (9-20) mg/dL Creatinine (0.66-1.25) mg/dL Estimated GFR (>60) mL/min BUN/Creatinine Ratio (6-22) Glucose (80-110) mg/dL Calcium (8.4-10.2) mg/dL Total Bilirubin (0.2-1.3) mg/dL AST (17-59) IU/L ALT (<50) IU/L Alkaline Phosphatase (38-126) U/L Troponin I (0.01-0.034) ng/mL NT-Pro-B Natriuret Pep (<450) pg/mL Total Protein (6.3-8.2) g/dL Albumin (3.5-5.0) g/dL Globulin (1.7-4.1) g/dL Albumin/Globulin Ratio (1.0-2.8) Lipase (23-300) U/L Urine RBC None seen (0-5/HPF) Urine WBC None seen (0-5/HPF) Urine Bacteria None seen (None) Ur Culture Indicated? Cult not indicated Micro UA Comment Microscopic normal Urine Dip Bedside Urine Glucose Negative Bedside Urine Bilirubin - Negative Bedside Urine Ketone + 15 Urine Specific [place] 1.015 Bedside Urine Occult Blood - Negative Bedside Urine pH 7 Bedside Urine Protein ++ 100 Bedside Urine Urobilinogen - Negative Bedside Urine Nitrite - Negative Bedside Urine Leukocytes - Negative Esterase ECG Data Attestation: I personally reviewed and interpreted this ECG as follows: Prior ECG tracings: available for review Interpretation: Sinus rhythm rate at 90. Left axis deviation [place] interval 190, QRS duration 94, QT QTC 388/[address] changes MDM Narrative Medical decision making narrative: EKG does not show acute ST changes today. Troponin was within normal limit of 0.016 (0.01-0.034). Urine is negative for infection. Patient was given initially Zofran ODT which helped his symptoms. Patient is afebrile with tachycardia of 102 and he arrived and hypertensive 210/116. Patient reports he had not taken his morning medications this morning due to nausea and vomiting. Patient also mentioned he is not on Bystolic as prescribed since this medication is not covered by his medical insurance and costly. Current hypertension medications are amlodipine 5mg, nifedipine 30 mg ER, HCTZ 25mg, Lorsartan 100mg. Patient has elevated glucose of 226 with A1c of 8.9 on 03/28/2020 blood draw. Lipase and liver functions are within normal limits. Physical exam was unremarkable without tenderness to palpate and soft. Patient had elevated blood pressure while in ED up to 218/105 and administered two blood pressure medications which are amlodipine and losartan. Patient's blood pressure has been improved to 151/53 before patient discharged to home and improved nausea and vomiting. 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 Nonspecific gas pattern with mild to moderate colonic obstipation. Patient advised to start MiraLax in addition to stool softener to help with constipation. Patient was able to tolerate ice chips. Return precautions were discussed with patient and patient verbalized unders tanding and agreement with treatment plan. <Dakota López, DO - Last Filed: 04/03/20 18:40> Lab Data Labs: Lab Results 04/03/20 04/03/20 04/03/20 Range/Units 10:41 10:41 10:41 WBC 8.4 (4.5-11.0) X10^3/uL RBC 5.30 (4.5-5.9) X10^6/uL Hgb 15.7 (13.5-17.5) g/dL Hct 44.9 (41-53) % MCV 84.7 (80-100) fL MCH 29.6 (26-34) PG MCHC 34.9 (30-36) % RDW 13.8 (11.6-14.8) % Plt Count 227 (150-400) X10^3/uL Neut % (Auto) 86.0 H (50-75) % Lymph % (Auto) 8.3 L (25-40) % [place] % (Auto) 4.5 (3-14) % Eos % (Auto) 0.6 L (2-4) % Baso % (Auto) 0.6 (0-2) % Neut # (Auto) 7300 H (1051-2290) /uL Lymph # (Auto) 700 L (8467-5462) /uL [place] # (Auto) 400 (0-900) /uL Eos # (Auto) 0 (0-450) /uL Baso # (Auto) 0 (0-100) /uL Sodium 137 (137-145) mmol/L Potassium 3.5 (3.4-5.1) mmol/L Chloride 101 (98-107) mmol/L Carbon Dioxide 24 (22-32) mmol/L BUN 14 (9-20) mg/dL Creatinine 0.60 L (0.66-1.25) mg/dL Estimated GFR > 60.0 (>60) mL/min BUN/Creatinine Ratio 23.3 H (6-22) Glucose 226 H (80-110) mg/dL Calcium 9.7 (8.4-10.2) mg/dL Total Bilirubin 1.1 (0.2-1.3) mg/dL AST 47 (17-59) IU/L ALT 45 (<50) IU/L Alkaline Phosphatase 116 (38-126) U/L Troponin I 0.016 (0.01-0.034) ng/mL NT-Pro-B Natriuret Pep 243 (<450) pg/mL Total Protein 7.9 (6.3-8.2) g/dL Albumin 4.4 (3.5-5.0) g/dL Globulin 3.5 (1.7-4.1) g/dL Albumin/Globulin Ratio 1.3 (1.0-2.8) Lipase 33 (23-300) U/L Urine RBC (0-5/HPF) Urine WBC (0-5/HPF) Urine Bacteria (None) Ur Culture Indicated? Micro UA Comment 04/03/20 Range/Units 11:38 WBC (4.5-11.0) X10^3/uL RBC (4.5-5.9) X10^6/uL Hgb (13.5-17.5) g/dL Hct (41-53) % MCV (80-100) fL MCH (26-34) PG MCHC (30-36) % RDW (11.6-14.8) % Plt Count (150-400) X10^3/uL Neut % (Auto) (50-75) % Lymph % (Auto) (25-40) % [place] % (Auto) (3-14) % Eos % (Auto) (2-4) % Baso % (Auto) (0-2) % Neut # (Auto) (7739-9986) /uL Lymph # (Auto) (7409-3356) /uL [place] # (Auto) (0-900) /uL Eos # (Auto) (0-450) /uL Baso # (Auto) (0-100) /uL Sodium (137-145) mmol/L Potassium (3.4-5.1) mmol/L Chloride (98-107) mmol/L Carbon Dioxide (22-32) mmol/L BUN (9-20) mg/dL Creatinine (0.66-1.25) mg/dL Estimated GFR (>60) mL/min BUN/Creatinine Ratio (6-22) Glucose (80-110) mg/dL Calcium (8.4-10.2) mg/dL Total Bilirubin (0.2-1.3) mg/dL AST (17-59) IU/L ALT (<50) IU/L Alkaline Phosphatase (38-126) U/L Troponin I (0.01-0.034) ng/mL NT-Pro-B Natriuret Pep (<450) pg/mL Total Protein (6.3-8.2) g/dL Albumin (3.5-5.0) g/dL Globulin (1.7-4.1) g/dL Albumin/Globulin Ratio (1.0-2.8) Lipase (23-300) U/L Urine RBC None seen (0-5/HPF) Urine WBC None seen (0-5/HPF) Urine Bacteria None seen (None) Ur Culture Indicated? Cult not indicated Micro UA Comment Microscopic normal Urine Dip Bedside Urine Glucose Negative Bedside Urine Bilirubin - Negative Bedside Urine Ketone + 15 Urine Specific [place] 1.015 Bedside Urine Occult Blood - Negative Bedside Urine pH 7 Bedside Urine Protein ++ 100 Bedside Urine Urobilinogen - Negative Bedside Urine Nitrite - Negative Bedside Urine Leukocytes - Negative Esterase Discharge Plan Departure Patient Disposition: Home Clinical Impression: Hyperglycemia Nausea & vomiting Qualifiers: Vomiting type: unspecified Vomiting Intractability: non-intractable Qualified Code(s): R11.2 - Nausea with vomiting, unspecified Constipation Qualifiers: Constipation type: unspecified constipation type Qualified Code(s): K59.00 - Constipation, unspecified Discharge Date/Time: 04/03/20 14:09 Activity Restrictions/Additional Instructions: You have been diagnosed with [nausea and vomiting, hyperglycemia, hypertension, constipation. EKG and blood tests were were unremarkable. Troponin and Pro BNP were within normal limits. Normal lactate. However, you have elevated blood glucose of 226. You were given losartan 100 mg and amlodipine 5 mg among your blood pressure medications to treat elevated BP. Xray of abdomen indicates obstipation. ]. What to do: *Take your medications as directed. Please continue to use stool softener and try [id number] MiraLax to help with her constipation. You can use Zofran/ondansetron as needed for nausea and vomiting. This medication has been transmitted to [facility]. Please start hydrate with clear liquid adequately and advanced diet to bland diet. *Follow up with your primary care provider in 2-3 days, call for an appointment. Let them know you were seen in the ED and that we asked you to be seen in follow up. *Return to ED if you have any new, worsening, or concerning symptoms, such as [chest pain, breathing difficulty, unable to tolerate fluids, fever, worsening pain or any other concerns]. Prescriptions: New ondansetron 4 mg tablet,disintegrating 4 mg PO Q8H PRN (Reason: nausea and vomiting) Qty: 10 RF: 0 No Action metformin 500 mg tablet 500 mg PO BID RF: 0 nifedipine 30 mg tablet extended release 30 mg PO DAILY RF: 0 amlodipine 5 mg tablet 5 mg PO DAILY RF: 0 aspirin [Adult Low Dose Aspirin] 81 mg tablet,delayed release (DR/EC) 81 mg PO DAILY RF: 0 sildenafil [Viagra] 100 mg tablet 100 mg PO DAILY PRN (Reason: as directed) RF: 0 tamsulosin [Flomax] 0.4 mg capsule 0.4 mg PO DAILY RF: 0 allopurinol 300 mg tablet 300 mg PO DAILY RF: 0 escitalopram oxalate 10 mg tablet 10 mg PO DAILY RF: 0 Bystolic 5 mg tablet 5 mg PO DAILY RF: 0 Centrum Silver Men 300-600-300 mcg tablet 1 tab PO DAILY RF: 0 losartan-hydrochlorothiazide 1 tab PO DAILY RF: 0 finasteride 5 mg tablet 5 mg PO DAILY RF: 0 docusate sodium [Stool Softener] 100 mg Capsule 100 mg PO DAILY RF: 0 Referrals: Martín West MD [Primary Care Provider] - <Dakota López DO - Last Filed: 04/03/20 18:40> [facility] ED Attending Cosignature Attestation: Dr López Co-Sign Statement: I was available for consultation during this patient's emergency department visit. This chart is signed by myself for administrative purposes only. I did not have direct contact with this patient during this visit. They were seen independ ently by the APC.
[2020-04-03 11:54] LABS: Bacteria Urine None Seen; RBC Urine None Seen (0-5/HPF); WBC Urine None Seen (0-5/HPF)
[2020-04-03 12:00] LABS: Culture Indicated Urine Cult Not Indicated; Urine Comments Microscopic Normal
--- NOTE | 2020-04-03 12:05 | PC.NURSE ---
Patient returned from CT drenched in urine. Pt states he did not make it to the urinal. I stood pt up on side of bed for about 4 minutes while doing a complete bed change and clothing change. Pt states he is very dizzy with movement and wobbly while standing. Returned pt to bed and took vitals. 218/106. After resting pt states he feels better and dizziness has decreased.
[2020-04-03 12:17] VITALS: BP 218/105; PULSE 82; RESP 21; O2SAT 97
[2020-04-03] MEDS: ONDANSETRON 4 MG/2 ML INJ IV (12:26)
[2020-04-03 12:31] VITALS: BP 174/95; PULSE 80
[2020-04-03] MEDS: LOSARTAN 50 MG TABLET 100 MG PO (12:31)
[2020-04-03] MEDS: AMLODIPINE 2.5 MG TABLET 5 MG PO (12:31)
[2020-04-03 12:37] VITALS: BP 174/95; PULSE 82
[2020-04-03 13:00] VITALS: BP 162/93; PULSE 87; RESP 16; O2SAT 96
[2020-04-03 13:01] LABS: NT-proBNP (BNP-Adult 18+) 243 pg/mL (<450)
[2020-04-03 14:07] VITALS: BP 151/53; PULSE 85; RESP 18; O2SAT 96
== END 2020-04-03 14:09 | disposition home or self-care (01) ==
PROVIDERS: Emergency Medicine; Emergency Provider Nurse Practitioner Family; PCP Family Medicine
DX: E11.65 Type 2 diabetes mellitus with hyperglycemia (principal); R11.2 Nausea with vomiting, unspecified; K59.00 Constipation, unspecified; I10 Essential (primary) hypertension; R00.0 Tachycardia, unspecified
CPT/HCPCS: 36415; 74022; 80053; 81003; 81015; 83690; 83880; 84484; 85025; 93005; 96361; 96374; 99285; J2405

== ENCOUNTER 2020-05-10 11:15 | Outpatient (RCR) | payer MEDICARE, OTHER, SELFPAY ==
--- NOTE | 2020-04-10 12:00 | PT.OIE ---
Current Diagnoses Ataxic gait (04/10/20) Other abnormalities of gait and mobility (04/10/20) Repeated falls (04/10/20) Weakness (04/10/20) Past Medical History (Last Reviewed 04/03/20 @ 11:58 by JONNIE Chen) BPH (benign prostatic hyperplasia) (Acute) Colon cancer (Acute) Coronary artery disease (Acute) Diabetes (Acute) Gout (Acute) Hypertension (Acute) Past Surgical History (Last Reviewed 04/03/20 @ 11:58 by JONNIE Chen) Heart valve replaced (Acute) History of appendectomy (Acute) History of colon surgery (Acute) Visit Care Team Role Provider Type Martín West MD Attending Provider Physician Primary Care Provider Referring Provider Specialty: Family Practice Address: [address] [place] [address], [address], [place], [address] Email: Physical Therapy Initial Evaluation PT-OP-A Visit Information Start: 04/10/20 15:16 Freq: Status: Active Protocol: Document 04/10/20 11:15 DCW (Rec: 04/10/20 17:49 DC [id number]) Out-Patient Physical Therapy Visit Information Visit Information Visit Type Initial Evaluation Visit Start Time 11:15 Visit Stop Time 12:00 Total Visit Minutes 45 Visit Number 1 Number of COMPENSATION CONSULTANT Visits 0 Evaluation Information Evaluation Date 04/10/20 PT-OP-B Current Condition Start: 04/10/20 15:16 Freq: Status: Active Protocol: Document 04/10/20 11:15 DCW (Rec: 04/10/20 17:49 DC [id number]) Current Condition History of Current Condition Onset Date 4-5 months Current Complaints Falls, imbalance, gait difficulty History of Current Condition Pt is a 79 year old male presenting with complaints of falls, imbalance, and deconditioning. Pt reports that a few months ago, before all this virus shutdown stuff , he noticed he was less stable, and suffered multiple falls. Pt reports that now, since he was shut in his house for three months, it is even worse, and he feels like he has just become very weak and deconditioned. Pt notes that he feels tippy and slow trying to walk with his quad cane. Notes that his goal is to walk normally and not fall down. PT-OP-C Subjective Start: 04/10/20 15:16 Freq: Status: Active Protocol: Document 04/10/20 11:15 DCW (Rec: 04/10/20 17:49 DCW [id number]) OP-PT Subjective Patient Comments Patient Comments I can walk on my own, but then I also fall on my own. Patient Reported Progress Worse PT-OP-D Balance Start: 04/10/20 15:16 Freq: Status: Active Protocol: Document 04/10/20 11:15 DCW (Rec: 04/10/20 17:49 DCW [id number]) OP-PT Balance Assessment Sitting Balance Static Sitting Balance Ability Good Dynamic Sitting Balance Ability Good Standing Balance Static Standing Balance Ability Poor Dynamic Standing Balance Ability Poor Device Used Quad cane Balance Tests Chandler Balance Test Chandler Balance Test Score 29/56 Chandler Impairment Rating 40 to 59% Impaired (Score 23- 33) Chandler Balance Assessment Evaluation Sitting to Standing Ability Independent w/out Hands Unsupported Stance 30 seconds Sitting Unsupported, Feet on Floor Safely- 2 minutes Standing to Sitting Ability Assist, Use Legs on Chair Transfer Ability Supervision, Verbal Cues Unsupported Stance- Eyes Closed Falls Without Assistance Unsupported Stance- Eyes Open Independent, <30 seconds Reaching Forward Standing Safely, 5 inches Pick- Up Object From Floor Requires Assistance Look Behind Shoulder - Standing Shifts Weight Well Turning 360 Degrees Turns slowly, but safely Unsupported Stance, Alternating Feet on Assist to Prevent Fall Stair Unsupported Tandem Stance Holds Tandem- 30 seconds Unilateral Leg Stance Lifts Leg/Unable to Hold Total Score Chandler Total Score (out of 56 points) 29 Chandler Impairment Rating 40 to 59% Impaired (Score 23- 33) Almonte Fall Scale Copyright Permission PT-OP-E Functional Tests Start: 04/10/20 15:16 Freq: Status: Active Protocol: Document 04/10/20 11:15 DCW (Rec: 04/10/20 17:49 DCW [id number]) Functional Tests Dynamic Gait Index (DGI) Score 12/24 DGI Impairment Rating 40 to <60% Impaired (Score 10- 14) PT-OP-G Mobility & Gait Start: 04/10/20 17:51 Freq: Status: Active Protocol: Document 04/10/20 11:15 DCW (Rec: 04/10/20 17:53 DCW [id number]) OP Gait Assessment Gait Gait Assistance Required: Contact Guard Assist Distance (Feet) 150 Assistive Devices Assistive Device Gait Belt,Small Based Quad Cane Gait Deviations General Gait Pattern Ataxic,Decreased Stride Length ,Decreased Feet Clearance, Flexed Trunk,Lateral Trunk Lean Factors Limiting Gait Function Factors Limiting Gait Function Decreased Activity Tolerance, Decreased Strength, Incoordination,Poor Balance Comments Gait Comments Pt ambulates with an ataxic gait pattern, significant path deviation, poor foot clearance, and a left foot slap. PT-OP-H Neuro Start: 04/10/20 15:16 Freq: Status: Active Protocol: Document 04/10/20 11:15 DCW (Rec: 04/10/20 17:49 DCW [id number]) Sensation Evaluation Location Details Foot Protective Sensation Intact/Normal Proprioception (Position) Intact/Normal PT-OP-M Strength Start: 04/10/20 15:16 Freq: Status: Active Protocol: Document 04/10/20 11:15 DCW (Rec: 04/10/20 17:49 DCW [id number]) Hip Strength Hip Manual Muscle Testing Right Flexion (L2) 4 Good Abduction 4 Good Adduction 4 Good External Rotation 4+ Good+ Internal Rotation 4+ Good+ Left Flexion (L2) 3+ Fair+ Abduction 3- Fair- Adduction 4 Good External Rotation 4+ Good+ Internal Rotation 4+ Good+ Knee Strength Knee Manual Muscle Testing Right Flexion (S2) 4+ Good+ Extension (L3) 4+ Good+ Left Flexion (S2) 4+ Good+ Extension (L3) 4+ Good+ Ankle/Foot Strength Ankle and Foot Manual Muscle Testing Right Dorsiflexion (L4) 4 Good Plantarflexion (S1) 4 Good Left Dorsiflexion (L4) 4 Good Plantarflexion (S1) 4 Good PT-OP-T Assessment and Plan Start: 04/10/20 09:44 Freq: Status: Active Protocol: Document 04/10/20 11:15 DCW (Rec: 04/10/20 18:01 DCW [id number]) Physical Therapy Assessment Rehab Potential Rehabilitation Potential Fair Evaluation Complexity Number of Personal Factors/Comorbidities 3 or More Number of Body Systems Impaired 4 or More Clinical Presentation at Evaluation Unstable Impairments Impairments Activity Tolerance,Balance, Functional Activities, Functional Mobility,Gait, Posture,Strength,Tone Goals Four Impairment Pt presents with left hip weakness Financial Analysis Advisor Goal (LTG) L hip MMT to test >4-/5 flexion and abduction LTG Duration 06/10/20 Three Impairment Pt displays poor gait, with moderate path deviation and poor foot clearance Financial Analysis Advisor Goal (LTG) Pt to ambulate two full laps in the gym (~340') with no instances of foot slap. LTG Duration 06/10/20 Two Impairment Pt displays increased falls risk Short Term Goal (STG) Pt to improve Chandler balance score to 35/56 to indicate decreased fall risk. STG Duration 05/10/20 Financial Analysis Advisor Goal (LTG) Pt to improve DGI score to 16/ 24 to indicate decreased falls risk LTG Duration 06/10/20 One Impairment Pt does not have an appropriate home exercise program Short Term Goal (STG) Pt to be independent and compliant with an appropriate HEP STG Duration 05/10/20 Assessment Summary Assessment Pt presents with substantial gait instability and demonstrates an increased falls risk, per his Chandler (29/ 56) and DGI (12/24) scores. Pt 's deficits are likely multifactoral, with age related vestibular loss, LE weakness, some complaints of LE neuropathy, although protective sensation is still intact, per 10 mm monofilament . Pt's gait involves an ataxic gait pattern, significant path deviation, left foot slap , and poor foot clearance. Pt should benefit from skilled therapy focusing on LE strengthening, balance and gait training, and improving activity tolerance. Physical Therapy Plan Frequency and Duration Frequency of Treatment 2x/Week Duration of Treatment 10 weeks Plan of Care Start Date 04/10/20 Plan of Care End Date 06/19/20 Therapeutic Interventions Therapeutic Interventions Aquatic Therapy,Balance Training,Gait Training,Home Exercise Program,Manual Therapy,Neuromuscular Re- education,Patient/Caregiver Education,Self-Care/Home Management,Therapeutic Activities,Therapeutic Exercises Next Visit Focus/Plan Next Note Type Treatment Note Next Visit Plan Balance training, gait training, LE strengthening
--- NOTE | 2020-04-10 12:00 | PT.OPPOC ---
Physical, Occupational & Speech Therapy [facility] Current Diagnoses Ataxic gait (04/10/20) Other abnormalities of gait and mobility (04/10/20) Repeated falls (04/10/20) Weakness (04/10/20) Visit Care Team Role Provider Type Martín West MD Attending Provider Physician Primary Care Provider Referring Provider Specialty: Family Practice Address: [address] [place] [address], [address], [place], [address] Email: Plan Of Care PT-OP-T Assessment and Plan Start: 04/10/20 09:44 Freq: Status: Active Protocol: Document 04/10/20 11:15 DCW (Rec: 04/10/20 18:01 DCW [id number]) Physical Therapy Assessment Rehab Potential Rehabilitation Potential Fair Evaluation Complexity Number of Personal Factors/Comorbidities 3 or More Number of Body Systems Impaired 4 or More Clinical Presentation at Evaluation Unstable Impairments Impairments Activity Tolerance,Balance, Functional Activities, Functional Mobility,Gait, Posture,Strength,Tone Goals Four Impairment Pt presents with left hip weakness Detention Goal (LTG) L hip MMT to test >4-/5 flexion and abduction LTG Duration 06/10/20 Three Impairment Pt displays poor gait, with moderate path deviation and poor foot clearance Staffing Account Manager Goal (LTG) Pt to ambulate two full laps in the gym (~340') with no instances of foot slap. LTG Duration 06/10/20 Two Impairment Pt displays increased falls risk Short Term Goal (STG) Pt to improve Chandler balance score to 35/56 to indicate decreased fall risk. STG Duration 05/10/20 Detention Goal (LTG) Pt to improve DGI score to 16/ 24 to indicate decreased falls risk LTG Duration 06/10/20 One Impairment Pt does not have an appropriate home exercise program Short Term Goal (STG) Pt to be independent and compliant with an appropriate HEP STG Duration 05/10/20 Assessment Summary Assessment Pt presents with substantial gait instability and demonstrates an increased falls risk, per his Chandler (29/ 56) and DGI (12/24) scores. Pt 's deficits are likely multifactoral, with age related vestibular loss, LE weakness, some complaints of LE neuropathy, although protective sensation is still intact, per 10 mm monofilament . Pt's gait involves an ataxic gait pattern, significant path deviation, left foot slap , and poor foot clearance. Pt should benefit from skilled therapy focusing on LE strengthening, balance and gait training, and improving activity tolerance. Physical Therapy Plan Frequency and Duration Frequency of Treatment 2x/Week Duration of Treatment 10 weeks Plan of Care Start Date 04/10/20 Plan of Care End Date 06/19/20 Therapeutic Interventions Therapeutic Interventions Aquatic Therapy,Balance Training,Gait Training,Home Exercise Program,Manual Therapy,Neuromuscular Re- education,Patient/Caregiver Education,Self-Care/Home Management,Therapeutic Activities,Therapeutic Exercises Next Visit Focus/Plan Next Note Type Treatment Note Next Visit Plan Balance training, gait training, LE strengthening Plan of Care Dates Plan of Care Start Date 04/10/20 Plan of Care End Date 06/19/20 Electronically Signed by: Singh Tellez, PT 04/11/20 [id number] Please Sign and Return: I have reviewed this Plan of Care and certify that the skilled therapy services above are required to meet the patient?s needs. Physician Signature Date Printed Name and Credentials Clinical Instructor Signature Printed Name and Credentials
--- NOTE | 2020-04-16 15:15 | PT.OTN ---
Current Diagnoses Ataxic gait (04/16/20) Other abnormalities of gait and mobility (04/16/20) Repeated falls (04/16/20) Weakness (04/16/20) Physical Therapy Treatment Note PT-OP-A Visit Information Start: 04/10/20 15:16 Freq: Status: Active Protocol: Document 04/16/20 14:30 DCW (Rec: 04/16/20 15:15 DCW [id number]) Out-Patient Physical Therapy Visit Information Visit Information Visit Type Treatment Note Visit Start Time 14:30 Visit Stop Time 15:15 Total Visit Minutes 45 Visit Number 2 Number of DERRICK BOAT LEVERMAN Visits 0 Evaluation Information Evaluation Date 04/10/20 PT-OP-B Current Condition Start: 04/10/20 15:16 Freq: Status: Active Protocol: Document 04/10/20 11:15 DCW (Rec: 04/10/20 17:49 DCW [id number]) Current Condition History of Current Condition Onset Date 4-5 months Current Complaints Falls, imbalance, gait difficulty History of Current Condition Pt is a 79 year old male presenting with complaints of falls, imbalance, and deconditioning. Pt reports that a few months ago, before all this virus shutdown stuff , he noticed he was less stable, and suffered multiple falls. Pt reports that now, since he was shut in his house for three months, it is even worse, and he feels like he has just become very weak and deconditioned. Pt notes that he feels tippy and slow trying to walk with his quad cane. Notes that his goal is to walk normally and not fall down. PT-OP-C Subjective Start: 04/10/20 15:16 Freq: Status: Active Protocol: Document 04/16/20 14:30 DCW (Rec: 04/16/20 15:15 DCW [id number]) OP-PT Subjective Patient Comments Patient Comments Pt notes he is still pretty unstable PT-OP-D Balance Start: 04/10/20 15:16 Freq: Status: Active Protocol: Document 04/10/20 11:15 DCW (Rec: 04/10/20 17:49 DCW [id number]) OP-PT Balance Assessment Sitting Balance Static Sitting Balance Ability Good Dynamic Sitting Balance Ability Good Standing Balance Static Standing Balance Ability Poor Dynamic Standing Balance Ability Poor Device Used Quad cane Balance Tests Chandler Balance Test Chandler Balance Test Score 29/56 Chandler Impairment Rating 40 to 59% Impaired (Score 23- 33) Chandler Balance Assessment Evaluation Sitting to Standing Ability Independent w/out Hands Unsupported Stance 30 seconds Sitting Unsupported, Feet on Floor Safely- 2 minutes Standing to Sitting Ability Assist, Use Legs on Chair Transfer Ability Supervision, Verbal Cues Unsupported Stance- Eyes Closed Falls Without Assistance Unsupported Stance- Eyes Open Independent, <30 seconds Reaching Forward Standing Safely, 5 inches Pick- Up Object From Floor Requires Assistance Look Behind Shoulder - Standing Shifts Weight Well Turning 360 Degrees Turns slowly, but safely Unsupported Stance, Alternating Feet on Assist to Prevent Fall Stair Unsupported Tandem Stance Holds Tandem- 30 seconds Unilateral Leg Stance Lifts Leg/Unable to Hold Total Score Chandler Total Score (out of 56 points) 29 Chandler Impairment Rating 40 to 59% Impaired (Score 23- 33) Almonte Fall Scale Copyright Permission PT-OP-E Functional Tests Start: 04/10/20 15:16 Freq: Status: Active Protocol: Document 04/10/20 11:15 DCW (Rec: 04/10/20 17:49 DCW [id number]) Functional Tests Dynamic Gait Index (DGI) Score 10/17 DGI Impairment Rating 40 to <60% Impaired (Score 10- 14) PT-OP-G Mobility & Gait Start: 04/10/20 17:51 Freq: Status: Active Protocol: Document 04/10/20 11:15 DCW (Rec: 04/10/20 17:53 DCW [id number]) OP Gait Assessment Gait Gait Assistance Required: Contact Guard Assist Distance (Feet) 150 Assistive Devices Assistive Device Gait Belt,Small Based Quad Cane Gait Deviations General Gait Pattern Ataxic,Decreased Stride Length ,Decreased Feet Clearance, Flexed Trunk,Lateral Trunk Lean Factors Limiting Gait Function Factors Limiting Gait Function Decreased Activity Tolerance, Decreased Strength, Incoordination,Poor Balance Comments Gait Comments Pt ambulates with an ataxic gait pattern, significant path deviation, poor foot clearance, and a left foot slap. PT-OP-H Neuro Start: 04/10/20 15:16 Freq: Status: Active Protocol: Document 04/10/20 11:15 DCW (Rec: 04/10/20 17:49 DCW [id number]) Sensation Evaluation Location Details Foot Protective Sensation Intact/Normal Proprioception (Position) Intact/Normal PT-OP-M Strength Start: 04/10/20 15:16 Freq: Status: Active Protocol: Document 04/10/20 11:15 DCW (Rec: 04/10/20 17:49 DCW [id number]) Hip Strength Hip Manual Muscle Testing Right Flexion (L2) 4 Good Abduction 4 Good Adduction 4 Good External Rotation 4+ Good+ Internal Rotation 4+ Good+ Left Flexion (L2) 3+ Fair+ Abduction 3- Fair- Adduction 4 Good External Rotation 4+ Good+ Internal Rotation 4+ Good+ Knee Strength Knee Manual Muscle Testing Right Flexion (S2) 4+ Good+ Extension (L3) 4+ Good+ Left Flexion (S2) 4+ Good+ Extension (L3) 4+ Good+ Ankle/Foot Strength Ankle and Foot Manual Muscle Testing Right Dorsiflexion (L4) 4 Good Plantarflexion (S1) 4 Good Left Dorsiflexion (L4) 4 Good Plantarflexion (S1) 4 Good PT-OP-Q Treatments Start: 04/10/20 15:16 Freq: Status: Active Protocol: Document 04/16/20 14:30 DCW (Rec: 04/16/20 15:15 DCW [id number]) Cardio Equipment Recumbent Elliptical (Biodex) Duration (Minutes) 5 Resistance 3 Seat Position 10 Gym Equipment Shuttle Balance Blue loops Details Wide JES (EO,EC, Head Turns), Staggered Therapeutic Exercises Standing Exercises Toe-taps Standing Exercise Name Fwd, Lateral Side bilateral Resistance 4# Equipment Used 6 step sit to stands Standing Exercise Name sit to stands Reps/Minutes x6 Other Exercises Hurdles Other Exercise Name Hurdles in // bars Comments Fwd and side-stepping Therapeutic Activity Therapeutic Activity resisted walking Name forward, retro and side to side Reps/Minutes 3 x 10 feet each Comments Green T-band PT-OP-T Assessment and Plan Start: 04/10/20 09:44 Freq: Status: Active Protocol: Document 04/16/20 14:30 DCW (Rec: 04/16/20 15:15 DCW [id number]) Physical Therapy Assessment Impairments Impairments Activity Tolerance,Balance, Functional Activities, Functional Mobility,Gait, Posture,Strength,Tone Goals Four Impairment Pt presents with left hip weakness Snf Goal (LTG) L hip MMT to test >4-/5 flexion and abduction LTG Duration 06/10/20 Three Impairment Pt displays poor gait, with moderate path deviation and poor foot clearance Biomedical Engineer Goal (LTG) Pt to ambulate two full laps in the gym (~340') with no instances of foot slap. LTG Duration 06/10/20 Two Impairment Pt displays increased falls risk Short Term Goal (STG) Pt to improve Chandler balance score to 35/56 to indicate decreased fall risk. STG Duration 05/10/20 Biomedical Engineer Goal (LTG) Pt to improve DGI score to 16/ 24 to indicate decreased falls risk LTG Duration 06/10/20 One Impairment Pt does not have an appropriate home exercise program Short Term Goal (STG) Pt to be independent and compliant with an appropriate HEP STG Duration 05/10/20 Assessment Summary Assessment Pt required multiple rest breaks, complained of fatigue and weakness. Pt had multiple instances today of plopping down into a chair, worked some on proper technique for sit<- >stands. Physical Therapy Plan Frequency and Duration Frequency of Treatment 2x/Week Duration of Treatment 10 weeks Plan of Care Start Date 04/10/20 Plan of Care End Date 06/19/20 Therapeutic Interventions Therapeutic Interventions Aquatic Therapy,Balance Training,Gait Training,Home Exercise Program,Manual Therapy,Neuromuscular Re- education,Patient/Caregiver Education,Self-Care/Home Management,Therapeutic Activities,Therapeutic Exercises Next Visit Focus/Plan Next Note Type Treatment Note Next Visit Plan Balance training, gait training, LE strengthening
--- NOTE | 2020-04-23 15:15 | PT.OTN ---
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) Other abnormalities of gait and mobility (04/23/20) Repeated falls (04/23/20) Weakness (04/23/20) Physical Therapy Treatment Note PT-OP-A Visit Information Start: 04/10/20 15:16 Freq: Status: Active Protocol: Document 04/23/20 14:30 DCW (Rec: 04/23/20 15:15 DCW [id number]) Out-Patient Physical Therapy Visit Information Visit Information Visit Type Treatment Note Visit Start Time 14:30 Visit Stop Time 15:15 Total Visit Minutes 45 Visit Number 3 Number of IT SOLUTIONS ARCHITECT Visits 0 Evaluation Information Evaluation Date 04/10/20 PT-OP-B Current Condition Start: 04/10/20 15:16 Freq: Status: Active Protocol: Document 04/10/20 11:15 DCW (Rec: 04/10/20 17:49 DCW [id number]) Current Condition History of Current Condition Onset Date 4-5 months Current Complaints Falls, imbalance, gait difficulty History of Current Condition Pt is a 79 year old male presenting with complaints of falls, imbalance, and deconditioning. Pt reports that a few months ago, before all this virus shutdown stuff , he noticed he was less stable, and suffered multiple falls. Pt reports that now, since he was shut in his house for three months, it is even worse, and he feels like he has just become very weak and deconditioned. Pt notes that he feels tippy and slow trying to walk with his quad cane. Notes that his goal is to walk normally and not fall down. PT-OP-C Subjective Start: 04/10/20 15:16 Freq: Status: Active Protocol: Document 04/23/20 14:30 DCW (Rec: 04/23/20 15:15 DCW [id number]) OP-PT Subjective Patient Comments Patient Comments Pt reports he is doing pretty well today, still feels fairly unstable. PT-OP-D Balance Start: 04/10/20 15:16 Freq: Status: Active Protocol: Document 04/10/20 11:15 DCW (Rec: 04/10/20 17:49 DCW [id number]) OP-PT Balance Assessment Sitting Balance Static Sitting Balance Ability Good Dynamic Sitting Balance Ability Good Standing Balance Static Standing Balance Ability Poor Dynamic Standing Balance Ability Poor Device Used Quad cane Balance Tests Chandler Balance Test Chandler Balance Test Score 29/56 Chandler Impairment Rating 40 to 59% Impaired (Score 23- 33) Chandler Balance Assessment Evaluation Sitting to Standing Ability Independent w/out Hands Unsupported Stance 30 seconds Sitting Unsupported, Feet on Floor Safely- 2 minutes Standing to Sitting Ability Assist, Use Legs on Chair Transfer Ability Supervision, Verbal Cues Unsupported Stance- Eyes Closed Falls Without Assistance Unsupported Stance- Eyes Open Independent, <30 seconds Reaching Forward Standing Safely, 5 inches Pick- Up Object From Floor Requires Assistance Look Behind Shoulder - Standing Shifts Weight Well Turning 360 Degrees Turns slowly, but safely Unsupported Stance, Alternating Feet on Assist to Prevent Fall Stair Unsupported Tandem Stance Holds Tandem- 30 seconds Unilateral Leg Stance Lifts Leg/Unable to Hold Total Score Chandler Total Score (out of 56 points) 29 Chandler Impairment Rating 40 to 59% Impaired (Score 23- 33) Almonte Fall Scale Copyright Permission PT-OP-E Functional Tests Start: 04/10/20 15:16 Freq: Status: Active Protocol: Document 04/10/20 11:15 DCW (Rec: 04/10/20 17:49 DCW [id number]) Functional Tests Dynamic Gait Index (DGI) Score 10/17 DGI Impairment Rating 40 to <60% Impaired (Score 10- 14) PT-OP-G Mobility & Gait Start: 04/10/20 17:51 Freq: Status: Active Protocol: Document 04/10/20 11:15 DCW (Rec: 04/10/20 17:53 DCW [id number]) OP Gait Assessment Gait Gait Assistance Required: Contact Guard Assist Distance (Feet) 150 Assistive Devices Assistive Device Gait Belt,Small Based Quad Cane Gait Deviations General Gait Pattern Ataxic,Decreased Stride Length ,Decreased Feet Clearance, Flexed Trunk,Lateral Trunk Lean Factors Limiting Gait Function Factors Limiting Gait Function Decreased Activity Tolerance, Decreased Strength, Incoordination,Poor Balance Comments Gait Comments Pt ambulates with an ataxic gait pattern, significant path deviation, poor foot clearance, and a left foot slap. PT-OP-H Neuro Start: 04/10/20 15:16 Freq: Status: Active Protocol: Document 04/10/20 11:15 DCW (Rec: 04/10/20 17:49 DCW [id number]) Sensation Evaluation Location Details Foot Protective Sensation Intact/Normal Proprioception (Position) Intact/Normal PT-OP-M Strength Start: 04/10/20 15:16 Freq: Status: Active Protocol: Document 04/10/20 11:15 DCW (Rec: 04/10/20 17:49 DCW [id number]) Hip Strength Hip Manual Muscle Testing Right Flexion (L2) 4 Good Abduction 4 Good Adduction 4 Good External Rotation 4+ Good+ Internal Rotation 4+ Good+ Left Flexion (L2) 3+ Fair+ Abduction 3- Fair- Adduction 4 Good External Rotation 4+ Good+ Internal Rotation 4+ Good+ Knee Strength Knee Manual Muscle Testing Right Flexion (S2) 4+ Good+ Extension (L3) 4+ Good+ Left Flexion (S2) 4+ Good+ Extension (L3) 4+ Good+ Ankle/Foot Strength Ankle and Foot Manual Muscle Testing Right Dorsiflexion (L4) 4 Good Plantarflexion (S1) 4 Good Left Dorsiflexion (L4) 4 Good Plantarflexion (S1) 4 Good PT-OP-Q Treatments Start: 04/10/20 15:16 Freq: Status: Active Protocol: Document 04/23/20 14:30 DCW (Rec: 04/23/20 15:15 DCW [id number]) Cardio Equipment Recumbent Bicycle Duration (Minutes) 5 Resistance 3 Seat Position 5 Gym Equipment Shuttle Balance Blue loops Details Wide JES (EO,EC, Head Turns), Staggered Therapeutic Exercises Standing Exercises Step-ups Standing Exercise Name Step-ups Resistance 5#, 6 step Other Exercises Hurdles Other Exercise Name Hurdles in // bars Resistance 5# Comments Fwd and side-stepping Therapeutic Activity Therapeutic Activity resisted walking Name forward, retro and side to side Reps/Minutes 3 x 10 feet each Comments Green T-band PT-OP-T Assessment and Plan Start: 04/10/20 09:44 Freq: Status: Active Protocol: Document 04/23/20 14:30 DCW (Rec: 04/23/20 15:15 DCW [id number]) Physical Therapy Assessment Impairments Impairments Activity Tolerance,Balance, Functional Activities, Functional Mobility,Gait, Posture,Strength,Tone Goals Four Impairment Pt presents with left hip weakness Penitentiary Goal (LTG) L hip MMT to test >4-/5 flexion and abduction LTG Duration 06/10/20 Three Impairment Pt displays poor gait, with moderate path deviation and poor foot clearance Heat Plant Specialist Goal (LTG) Pt to ambulate two full laps in the gym (~340') with no instances of foot slap. LTG Duration 06/10/20 Two Impairment Pt displays increased falls risk Short Term Goal (STG) Pt to improve Chandler balance score to 35/56 to indicate decreased fall risk. STG Duration 05/10/20 Heat Plant Specialist Goal (LTG) Pt to improve DGI score to 16/ 24 to indicate decreased falls risk LTG Duration 06/10/20 One Impairment Pt does not have an appropriate home exercise program Short Term Goal (STG) Pt to be independent and compliant with an appropriate HEP STG Duration 05/10/20 Assessment Summary Assessment Pt tolerated increased activity today with fewer rest breaks. No notable uncontrolled descent into chair. Pt did have difficulty with hip flexion and foot clearance when attempting to go over hurdles. Physical Therapy Plan Frequency and Duration Frequency of Treatment 2x/Week Duration of Treatment 10 weeks Plan of Care Start Date 04/10/20 Plan of Care End Date 06/19/20 Therapeutic Interventions Therapeutic Interventions Aquatic Therapy,Balance Training,Gait Training,Home Exercise Program,Manual Therapy,Neuromuscular Re- education,Patient/Caregiver Education,Self-Care/Home Management,Therapeutic Activities,Therapeutic Exercises Next Visit Focus/Plan Next Note Type Treatment Note Next Visit Plan Balance training, gait training, LE strengthening
--- NOTE | 2020-04-29 14:32 | PT.OTN ---
Current Diagnoses Ataxic gait (04/29/20) Other abnormalities of gait and mobility (04/29/20) Repeated falls (04/29/20) Weakness (04/29/20) Physical Therapy Treatment Note PT-OP-A Visit Information Start: 04/10/20 15:16 Freq: Status: Active Protocol: Document 04/29/20 13:45 DCW (Rec: 04/29/20 14:32 DCW [id number]) Out-Patient Physical Therapy Visit Information Visit Information Visit Type Treatment Note Visit Start Time 13:45 Visit Stop Time 14:30 Total Visit Minutes 45 Visit Number 4 Number of SEAMAN Visits 0 Evaluation Information Evaluation Date 04/10/20 PT-OP-B Current Condition Start: 04/10/20 15:16 Freq: Status: Active Protocol: Document 04/10/20 11:15 DCW (Rec: 04/10/20 17:49 DCW [id number]) Current Condition History of Current Condition Onset Date 4-5 months Current Complaints Falls, imbalance, gait difficulty History of Current Condition Pt is a 79 year old male presenting with complaints of falls, imbalance, and deconditioning. Pt reports that a few months ago, before all this virus shutdown stuff , he noticed he was less stable, and suffered multiple falls. Pt reports that now, since he was shut in his house for three months, it is even worse, and he feels like he has just become very weak and deconditioned. Pt notes that he feels tippy and slow trying to walk with his quad cane. Notes that his goal is to walk normally and not fall down. PT-OP-C Subjective Start: 04/10/20 15:16 Freq: Status: Active Protocol: Document 04/29/20 13:45 DCW (Rec: 04/29/20 14:32 DCW [id number]) OP-PT Subjective Patient Comments Patient Comments I'm doing well today, believe it or not. PT-OP-D Balance Start: 04/10/20 15:16 Freq: Status: Active Protocol: Document 04/10/20 11:15 DCW (Rec: 04/10/20 17:49 DCW [id number]) OP-PT Balance Assessment Sitting Balance Static Sitting Balance Ability Good Dynamic Sitting Balance Ability Good Standing Balance Static Standing Balance Ability Poor Dynamic Standing Balance Ability Poor Device Used Quad cane Balance Tests Chandler Balance Test Chandler Balance Test Score 29/56 Chandler Impairment Rating 40 to 59% Impaired (Score 23- 33) Chandler Balance Assessment Evaluation Sitting to Standing Ability Independent w/out Hands Unsupported Stance 30 seconds Sitting Unsupported, Feet on Floor Safely- 2 minutes Standing to Sitting Ability Assist, Use Legs on Chair Transfer Ability Supervision, Verbal Cues Unsupported Stance- Eyes Closed Falls Without Assistance Unsupported Stance- Eyes Open Independent, <30 seconds Reaching Forward Standing Safely, 5 inches Pick- Up Object From Floor Requires Assistance Look Behind Shoulder - Standing Shifts Weight Well Turning 360 Degrees Turns slowly, but safely Unsupported Stance, Alternating Feet on Assist to Prevent Fall Stair Unsupported Tandem Stance Holds Tandem- 30 seconds Unilateral Leg Stance Lifts Leg/Unable to Hold Total Score Chandler Total Score (out of 56 points) 29 Chandler Impairment Rating 40 to 59% Impaired (Score 23- 33) Almonte Fall Scale Copyright Permission PT-OP-E Functional Tests Start: 04/10/20 15:16 Freq: Status: Active Protocol: Document 04/10/20 11:15 DCW (Rec: 04/10/20 17:49 DCW [id number]) Functional Tests Dynamic Gait Index (DGI) Score 1224 DGI Impairment Rating 40 to <60% Impaired (Score 10- 14) PT-OP-G Mobility & Gait Start: 04/10/20 17:51 Freq: Status: Active Protocol: Document 04/10/20 11:15 DCW (Rec: 04/10/20 17:53 DCW [id number]) OP Gait Assessment Gait Gait Assistance Required: Contact Guard Assist Distance (Feet) 150 Assistive Devices Assistive Device Gait Belt,Small Based Quad Cane Gait Deviations General Gait Pattern Ataxic,Decreased Stride Length ,Decreased Feet Clearance, Flexed Trunk,Lateral Trunk Lean Factors Limiting Gait Function Factors Limiting Gait Function Decreased Activity Tolerance, Decreased Strength, Incoordination,Poor Balance Comments Gait Comments Pt ambulates with an ataxic gait pattern, significant path deviation, poor foot clearance, and a left foot slap. PT-OP-H Neuro Start: 04/10/20 15:16 Freq: Status: Active Protocol: Document 04/10/20 11:15 DCW (Rec: 04/10/20 17:49 DCW [id number]) Sensation Evaluation Location Details Foot Protective Sensation Intact/Normal Proprioception (Position) Intact/Normal PT-OP-M Strength Start: 04/10/20 15:16 Freq: Status: Active Protocol: Document 04/10/20 11:15 DCW (Rec: 04/10/20 17:49 DCW [id number]) Hip Strength Hip Manual Muscle Testing Right Flexion (L2) 4 Good Abduction 4 Good Adduction 4 Good External Rotation 4+ Good+ Internal Rotation 4+ Good+ Left Flexion (L2) 3+ Fair+ Abduction 3- Fair- Adduction 4 Good External Rotation 4+ Good+ Internal Rotation 4+ Good+ Knee Strength Knee Manual Muscle Testing Right Flexion (S2) 4+ Good+ Extension (L3) 4+ Good+ Left Flexion (S2) 4+ Good+ Extension (L3) 4+ Good+ Ankle/Foot Strength Ankle and Foot Manual Muscle Testing Right Dorsiflexion (L4) 4 Good Plantarflexion (S1) 4 Good Left Dorsiflexion (L4) 4 Good Plantarflexion (S1) 4 Good PT-OP-Q Treatments Start: 04/10/20 15:16 Freq: Status: Active Protocol: Document 04/29/20 13:45 DCW (Rec: 04/29/20 14:32 DCW [id number]) Cardio Equipment Recumbent Stepper (Sci-Fit) Duration (Minutes) 5 Resistance 3 Seat Position 11 Gym Equipment Shuttle Recovery Unilateral Squats Resistance 37# Shuttle Recovery Platform Stable Bilateral Squats Resistance 75# Shuttle Recovery Platform Stable Shuttle Balance Blue loops Details Wide JES (EO,EC), Staggered Therapeutic Exercises Other Exercises Hurdles Other Exercise Name Hurdles in // bars Resistance 5# Comments Fwd and side-stepping Therapeutic Activity Therapeutic Activity resisted walking Name forward, retro and side to side Reps/Minutes 3 x 10 feet each Comments Green T-band PT-OP-T Assessment and Plan Start: 04/10/20 09:44 Freq: Status: Active Protocol: Document 04/29/20 13:45 DCW (Rec: 04/29/20 14:32 DCW [id number]) Physical Therapy Assessment Impairments Impairments Activity Tolerance,Balance, Functional Activities, Functional Mobility,Gait, Posture,Strength,Tone Goals Four Impairment Pt presents with left hip weakness Snf Goal (LTG) L hip MMT to test >4-/5 flexion and abduction LTG Duration 06/10/20 Three Impairment Pt displays poor gait, with moderate path deviation and poor foot clearance Butt Maker Goal (LTG) Pt to ambulate two full laps in the gym (~340') with no instances of foot slap. LTG Duration 06/10/20 Two Impairment Pt displays increased falls risk Short Term Goal (STG) Pt to improve Chandler balance score to 35/56 to indicate decreased fall risk. STG Duration 05/10/20 Butt Maker Goal (LTG) Pt to improve DGI score to 16/ 24 to indicate decreased falls risk LTG Duration 06/10/20 One Impairment Pt does not have an appropriate home exercise program Short Term Goal (STG) Pt to be independent and compliant with an appropriate HEP STG Duration 05/10/20 Assessment Summary Assessment Increased fatigue today, required extended rest break detention through today's session. Physical Therapy Plan Frequency and Duration Frequency of Treatment 2x/Week Duration of Treatment 10 weeks Plan of Care Start Date 04/10/20 Plan of Care End Date 06/19/20 Therapeutic Interventions Therapeutic Interventions Aquatic Therapy,Balance Training,Gait Training,Home Exercise Program,Manual Therapy,Neuromuscular Re- education,Patient/Caregiver Education,Self-Care/Home Management,Therapeutic Activities,Therapeutic Exercises Next Visit Focus/Plan Next Note Type Treatment Note Next Visit Plan Balance training, gait training, LE strengthening
--- NOTE | 2020-05-01 14:29 | PT.OTN ---
Current Diagnoses Ataxic gait (05/01/20) Other abnormalities of gait and mobility (05/01/20) Repeated falls (05/01/20) Weakness (05/01/20) Physical Therapy Treatment Note PT-OP-A Visit Information Start: 04/10/20 15:16 Freq: Status: Active Protocol: Document 05/01/20 13:45 DCW (Rec: 05/01/20 14:29 DCW [id number]) Out-Patient Physical Therapy Visit Information Visit Information Visit Type Treatment Note Visit Start Time 13:45 Visit Stop Time 14:30 Total Visit Minutes 45 Visit Number 5 Number of COOK FRUIT Visits 0 Evaluation Information Evaluation Date 04/10/20 PT-OP-B Current Condition Start: 04/10/20 15:16 Freq: Status: Active Protocol: Document 04/10/20 11:15 DCW (Rec: 04/10/20 17:49 DCW [id number]) Current Condition History of Current Condition Onset Date 4-5 months Current Complaints Falls, imbalance, gait difficulty History of Current Condition Pt is a 79 year old male presenting with complaints of falls, imbalance, and deconditioning. Pt reports that a few months ago, before all this virus shutdown stuff , he noticed he was less stable, and suffered multiple falls. Pt reports that now, since he was shut in his house for three months, it is even worse, and he feels like he has just become very weak and deconditioned. Pt notes that he feels tippy and slow trying to walk with his quad cane. Notes that his goal is to walk normally and not fall down. PT-OP-C Subjective Start: 04/10/20 15:16 Freq: Status: Active Protocol: Document 05/01/20 13:45 DCW (Rec: 05/01/20 14:29 DCW [id number]) OP-PT Subjective Patient Comments Patient Comments I'm feeling pretty good. PT-OP-D Balance Start: 04/10/20 15:16 Freq: Status: Active Protocol: Document 04/10/20 11:15 DCW (Rec: 04/10/20 17:49 DCW [id number]) OP-PT Balance Assessment Sitting Balance Static Sitting Balance Ability Good Dynamic Sitting Balance Ability Good Standing Balance Static Standing Balance Ability Poor Dynamic Standing Balance Ability Poor Device Used Quad cane Balance Tests Chandler Balance Test Chandler Balance Test Score 29/56 Chandler Impairment Rating 40 to 59% Impaired (Score 23- 33) Chandler Balance Assessment Evaluation Sitting to Standing Ability Independent w/out Hands Unsupported Stance 30 seconds Sitting Unsupported, Feet on Floor Safely- 2 minutes Standing to Sitting Ability Assist, Use Legs on Chair Transfer Ability Supervision, Verbal Cues Unsupported Stance- Eyes Closed Falls Without Assistance Unsupported Stance- Eyes Open Independent, <30 seconds Reaching Forward Standing Safely, 5 inches Pick- Up Object From Floor Requires Assistance Look Behind Shoulder - Standing Shifts Weight Well Turning 360 Degrees Turns slowly, but safely Unsupported Stance, Alternating Feet on Assist to Prevent Fall Stair Unsupported Tandem Stance Holds Tandem- 30 seconds Unilateral Leg Stance Lifts Leg/Unable to Hold Total Score Chandler Total Score (out of 56 points) 29 Chandler Impairment Rating 40 to 59% Impaired (Score 23- 33) Almonte Fall Scale Copyright Permission PT-OP-E Functional Tests Start: 04/10/20 15:16 Freq: Status: Active Protocol: Document 04/10/20 11:15 DCW (Rec: 04/10/20 17:49 DCW [id number]) Functional Tests Dynamic Gait Index (DGI) Score 10/17 DGI Impairment Rating 40 to <60% Impaired (Score 10- 14) PT-OP-G Mobility & Gait Start: 04/10/20 17:51 Freq: Status: Active Protocol: Document 04/10/20 11:15 DCW (Rec: 04/10/20 17:53 DCW [id number]) OP Gait Assessment Gait Gait Assistance Required: Contact Guard Assist Distance (Feet) 150 Assistive Devices Assistive Device Gait Belt,Small Based Quad Cane Gait Deviations General Gait Pattern Ataxic,Decreased Stride Length ,Decreased Feet Clearance, Flexed Trunk,Lateral Trunk Lean Factors Limiting Gait Function Factors Limiting Gait Function Decreased Activity Tolerance, Decreased Strength, Incoordination,Poor Balance Comments Gait Comments Pt ambulates with an ataxic gait pattern, significant path deviation, poor foot clearance, and a left foot slap. PT-OP-H Neuro Start: 04/10/20 15:16 Freq: Status: Active Protocol: Document 04/10/20 11:15 DCW (Rec: 04/10/20 17:49 DCW [id number]) Sensation Evaluation Location Details Foot Protective Sensation Intact/Normal Proprioception (Position) Intact/Normal PT-OP-M Strength Start: 04/10/20 15:16 Freq: Status: Active Protocol: Document 04/10/20 11:15 DCW (Rec: 04/10/20 17:49 DCW [id number]) Hip Strength Hip Manual Muscle Testing Right Flexion (L2) 4 Good Abduction 4 Good Adduction 4 Good External Rotation 4+ Good+ Internal Rotation 4+ Good+ Left Flexion (L2) 3+ Fair+ Abduction 3- Fair- Adduction 4 Good External Rotation 4+ Good+ Internal Rotation 4+ Good+ Knee Strength Knee Manual Muscle Testing Right Flexion (S2) 4+ Good+ Extension (L3) 4+ Good+ Left Flexion (S2) 4+ Good+ Extension (L3) 4+ Good+ Ankle/Foot Strength Ankle and Foot Manual Muscle Testing Right Dorsiflexion (L4) 4 Good Plantarflexion (S1) 4 Good Left Dorsiflexion (L4) 4 Good Plantarflexion (S1) 4 Good PT-OP-Q Treatments Start: 04/10/20 15:16 Freq: Status: Active Protocol: Document 05/01/20 13:45 DCW (Rec: 05/01/20 14:29 DCW [id number]) Cardio Equipment Recumbent Bicycle Duration (Minutes) 5 Resistance 4 Seat Position 8 Gym Equipment Shuttle Recovery Unilateral Squats Resistance 37# Shuttle Recovery Platform Stable Bilateral Squats Resistance 75# Shuttle Recovery Platform Stable Shuttle Balance Blue loops Details Wide JES (EO,EC), Staggered Therapeutic Exercises Standing Exercises sit to stands Standing Exercise Name StS /s UEs Reps/Minutes x10 Therapeutic Activity Therapeutic Activity resisted walking Name forward, retro and side to side Reps/Minutes x20 feet each Comments Green T-band Neuro Re-Education Treatment Balance Activities 1 Details NBOS Surface Blue foam Comments Eyes open/closed PT-OP-T Assessment and Plan Start: 04/10/20 09:44 Freq: Status: Active Protocol: Document 05/01/20 13:45 DCW (Rec: 05/01/20 14:29 DCW [id number]) Physical Therapy Assessment Impairments Impairments Activity Tolerance,Balance, Functional Activities, Functional Mobility,Gait, Posture,Strength,Tone Goals Four Impairment Pt presents with left hip weakness Longterm Goal (LTG) L hip MMT to test >4-/5 flexion and abduction LTG Duration 06/10/20 Three Impairment Pt displays poor gait, with moderate path deviation and poor foot clearance Longterm Goal (LTG) Pt to ambulate two full laps in the gym (~340') with no instances of foot slap. LTG Duration 06/10/20 Two Impairment Pt displays increased falls risk Short Term Goal (STG) Pt to improve Chandler balance score to 35/56 to indicate decreased fall risk. STG Duration 05/10/20 Longterm Goal (LTG) Pt to improve DGI score to 16/ 24 to indicate decreased falls risk LTG Duration 06/10/20 One Impairment Pt does not have an appropriate home exercise program Short Term Goal (STG) Pt to be independent and compliant with an appropriate HEP STG Duration 05/10/20 Assessment Summary Assessment Pt did well today, fewer rest breaks required, did tire quickly with resisted ambulation Physical Therapy Plan Frequency and Duration Frequency of Treatment 2x/Week Duration of Treatment 10 weeks Plan of Care Start Date 04/10/20 Plan of Care End Date 06/19/20 Therapeutic Interventions Therapeutic Interventions Aquatic Therapy,Balance Training,Gait Training,Home Exercise Program,Manual Therapy,Neuromuscular Re- education,Patient/Caregiver Education,Self-Care/Home Management,Therapeutic Activities,Therapeutic Exercises Next Visit Focus/Plan Next Note Type Treatment Note Next Visit Plan Balance training, gait training, LE strengthening
--- NOTE | 2020-05-07 14:30 | PT.OTN ---
Current Diagnoses Ataxic gait (05/07/20) Other abnormalities of gait and mobility (05/07/20) Repeated falls (05/07/20) Weakness (05/07/20) Physical Therapy Treatment Note PT-OP-A Visit Information Start: 04/10/20 15:16 Freq: Status: Active Protocol: Document 05/07/20 13:45 DCW (Rec: 05/07/20 14:30 DCW [id number]) Out-Patient Physical Therapy Visit Information Visit Information Visit Type Treatment Note Visit Start Time 13:45 Visit Stop Time 14:30 Total Visit Minutes 45 Visit Number 6 Number of FLIGHT INSTRUCTOR Visits 0 Evaluation Information Evaluation Date 04/10/20 PT-OP-B Current Condition Start: 04/10/20 15:16 Freq: Status: Active Protocol: Document 04/10/20 11:15 DCW (Rec: 04/10/20 17:49 DCW [id number]) Current Condition History of Current Condition Onset Date 4-5 months Current Complaints Falls, imbalance, gait difficulty History of Current Condition Pt is a 79 year old male presenting with complaints of falls, imbalance, and deconditioning. Pt reports that a few months ago, before all this virus shutdown stuff , he noticed he was less stable, and suffered multiple falls. Pt reports that now, since he was shut in his house for three months, it is even worse, and he feels like he has just become very weak and deconditioned. Pt notes that he feels tippy and slow trying to walk with his quad cane. Notes that his goal is to walk normally and not fall down. PT-OP-C Subjective Start: 04/10/20 15:16 Freq: Status: Active Protocol: Document 05/07/20 13:45 DCW (Rec: 05/07/20 14:30 DCW [id number]) OP-PT Subjective Patient Comments Patient Comments Pt reports he is doing well today, but tired himself out by taking a shower. PT-OP-D Balance Start: 04/10/20 15:16 Freq: Status: Active Protocol: Document 04/10/20 11:15 DCW (Rec: 04/10/20 17:49 DCW [id number]) OP-PT Balance Assessment Sitting Balance Static Sitting Balance Ability Good Dynamic Sitting Balance Ability Good Standing Balance Static Standing Balance Ability Poor Dynamic Standing Balance Ability Poor Device Used Quad cane Balance Tests Chandler Balance Test Chandler Balance Test Score 29/56 Chandler Impairment Rating 40 to 59% Impaired (Score 23- 33) Chandler Balance Assessment Evaluation Sitting to Standing Ability Independent w/out Hands Unsupported Stance 30 seconds Sitting Unsupported, Feet on Floor Safely- 2 minutes Standing to Sitting Ability Assist, Use Legs on Chair Transfer Ability Supervision, Verbal Cues Unsupported Stance- Eyes Closed Falls Without Assistance Unsupported Stance- Eyes Open Independent, <30 seconds Reaching Forward Standing Safely, 5 inches Pick- Up Object From Floor Requires Assistance Look Behind Shoulder - Standing Shifts Weight Well Turning 360 Degrees Turns slowly, but safely Unsupported Stance, Alternating Feet on Assist to Prevent Fall Stair Unsupported Tandem Stance Holds Tandem- 30 seconds Unilateral Leg Stance Lifts Leg/Unable to Hold Total Score Chandler Total Score (out of 56 points) 29 Chandler Impairment Rating 40 to 59% Impaired (Score 23- 33) Almonte Fall Scale Copyright Permission PT-OP-E Functional Tests Start: 04/10/20 15:16 Freq: Status: Active Protocol: Document 04/10/20 11:15 DCW (Rec: 04/10/20 17:49 DCW [id number]) Functional Tests Dynamic Gait Index (DGI) Score 24 DGI Impairment Rating 40 to <60% Impaired (Score 10- 14) PT-OP-G Mobility & Gait Start: 04/10/20 17:51 Freq: Status: Active Protocol: Document 04/10/20 11:15 DCW (Rec: 04/10/20 17:53 DCW [id number]) OP Gait Assessment Gait Gait Assistance Required: Contact Guard Assist Distance (Feet) 150 Assistive Devices Assistive Device Gait Belt,Small Based Quad Cane Gait Deviations General Gait Pattern Ataxic,Decreased Stride Length ,Decreased Feet Clearance, Flexed Trunk,Lateral Trunk Lean Factors Limiting Gait Function Factors Limiting Gait Function Decreased Activity Tolerance, Decreased Strength, Incoordination,Poor Balance Comments Gait Comments Pt ambulates with an ataxic gait pattern, significant path deviation, poor foot clearance, and a left foot slap. PT-OP-H Neuro Start: 04/10/20 15:16 Freq: Status: Active Protocol: Document 04/10/20 11:15 DCW (Rec: 04/10/20 17:49 DCW [id number]) Sensation Evaluation Location Details Foot Protective Sensation Intact/Normal Proprioception (Position) Intact/Normal PT-OP-M Strength Start: 04/10/20 15:16 Freq: Status: Active Protocol: Document 04/10/20 11:15 DCW (Rec: 04/10/20 17:49 DCW [id number]) Hip Strength Hip Manual Muscle Testing Right Flexion (L2) 4 Good Abduction 4 Good Adduction 4 Good External Rotation 4+ Good+ Internal Rotation 4+ Good+ Left Flexion (L2) 3+ Fair+ Abduction 3- Fair- Adduction 4 Good External Rotation 4+ Good+ Internal Rotation 4+ Good+ Knee Strength Knee Manual Muscle Testing Right Flexion (S2) 4+ Good+ Extension (L3) 4+ Good+ Left Flexion (S2) 4+ Good+ Extension (L3) 4+ Good+ Ankle/Foot Strength Ankle and Foot Manual Muscle Testing Right Dorsiflexion (L4) 4 Good Plantarflexion (S1) 4 Good Left Dorsiflexion (L4) 4 Good Plantarflexion (S1) 4 Good PT-OP-Q Treatments Start: 04/10/20 15:16 Freq: Status: Active Protocol: Document 05/07/20 13:45 DCW (Rec: 05/07/20 14:30 DCW [id number]) Cardio Equipment Recumbent Elliptical (Biodex) Duration (Minutes) 5 Resistance 5 Seat Position 10 Gym Equipment Shuttle Recovery Unilateral Squats Resistance 37# Shuttle Recovery Platform Stable Bilateral Squats Resistance 75# Shuttle Recovery Platform Stable Shuttle Balance Blue loops Details Wide JES (EO,EC), Staggered Therapeutic Exercises Other Exercises Hurdles Other Exercise Name Hurdles in // bars Resistance 5# Comments Fwd and side-stepping Therapeutic Activity Therapeutic Activity resisted walking Name forward, retro and side to side Reps/Minutes x20 feet each Comments Green T-band PT-OP-T Assessment and Plan Start: 04/10/20 09:44 Freq: Status: Active Protocol: Document 05/07/20 13:45 DCW (Rec: 05/07/20 14:30 DCW [id number]) Physical Therapy Assessment Impairments Impairments Activity Tolerance,Balance, Functional Activities, Functional Mobility,Gait, Posture,Strength,Tone Goals Four Impairment Pt presents with left hip weakness Director Of [employer]missions Goal (LTG) L hip MMT to test >4-/5 flexion and abduction LTG Duration 8/17/20 Three Impairment Pt displays poor gait, with moderate path deviation and poor foot clearance Director Of [employer] Goal (LTG) Pt to ambulate two full laps in the gym (~340') with no instances of foot slap. LTG Duration 06/10/20 Two Impairment Pt displays increased falls risk Short Term Goal (STG) Pt to improve Chandler balance score to 35/56 to indicate decreased fall risk. STG Duration 05/10/20 [facility] Goal (LTG) Pt to improve DGI score to 16/ 24 to indicate decreased falls risk LTG Duration 06/10/20 One Impairment Pt does not have an appropriate home exercise program Short Term Goal (STG) Pt to be independent and compliant with an appropriate HEP STG Duration 05/10/20 Assessment Summary Assessment Pt doing better with activity tolerance, but continues to display imbalance and a forward leaning, almost out of control momentum during gait. Physical Therapy Plan Frequency and Duration Frequency of Treatment 2x/Week Duration of Treatment 10 weeks Plan of Care Start Date 04/10/20 Plan of Care End Date 06/19/20 Therapeutic Interventions Therapeutic Interventions Aquatic Therapy,Balance Training,Gait Training,Home Exercise Program,Manual Therapy,Neuromuscular Re- education,Patient/Caregiver Education,Self-Care/Home Management,Therapeutic Activities,Therapeutic Exercises Next Visit Focus/Plan Next Note Type Treatment Note Next Visit Plan Balance training, gait training, LE strengthening
--- NOTE | 2020-05-10 12:00 | PT.OTN ---
Current Diagnoses Ataxic gait (05/10/20) Other abnormalities of gait and mobility (05/10/20) Repeated falls (05/10/20) Weakness (05/10/20) Physical Therapy Treatment Note PT-OP-A Visit Information Start: 04/10/20 15:16 Freq: Status: Active Protocol: Document 05/10/20 11:15 DCW (Rec: 05/10/20 12:00 DCW [id number]) Out-Patient Physical Therapy Visit Information Visit Information Visit Type Treatment Note Visit Start Time 11:15 Visit Stop Time 12:00 Total Visit Minutes 45 Visit Number 7 Number of [employer]OR[employer] ATTENDANT Visits 0 Evaluation Information Evaluation Date 04/10/20 PT-OP-B Current Condition Start: 04/10/20 15:16 Freq: Status: Active Protocol: Document 04/10/20 11:15 DCW (Rec: 04/10/20 17:49 DCW [id number]) Current Condition History of Current Condition Onset Date 4-5 months Current Complaints Falls, imbalance, gait difficulty History of Current Condition Pt is a 79 year old male presenting with complaints of falls, imbalance, and deconditioning. Pt reports that a few months ago, before all this virus shutdown stuff , he noticed he was less stable, and suffered multiple falls. Pt reports that now, since he was shut in his house for three months, it is even worse, and he feels like he has just become very weak and deconditioned. Pt notes that he feels tippy and slow trying to walk with his quad cane. Notes that his goal is to walk normally and not fall down. PT-OP-C Subjective Start: 04/10/20 15:16 Freq: Status: Active Protocol: Document 05/10/20 11:15 DCW (Rec: 05/10/20 12:00 DCW [id number]) OP-PT Subjective Patient Comments Patient Comments I'd rather be outside walking than in here, but here we are . PT-OP-D Balance Start: 04/10/20 15:16 Freq: Status: Active Protocol: Document 04/10/20 11:15 DCW (Rec: 04/10/20 17:49 DCW [id number]) OP-PT Balance Assessment Sitting Balance Static Sitting Balance Ability Good Dynamic Sitting Balance Ability Good Standing Balance Static Standing Balance Ability Poor Dynamic Standing Balance Ability Poor Device Used Quad cane Balance Tests Chandler Balance Test Chandler Balance Test Score 29/56 Chandler Impairment Rating 40 to 59% Impaired (Score 23- 33) Chandler Balance Assessment Evaluation Sitting to Standing Ability Independent w/out Hands Unsupported Stance 30 seconds Sitting Unsupported, Feet on Floor Safely- 2 minutes Standing to Sitting Ability Assist, Use Legs on Chair Transfer Ability Supervision, Verbal Cues Unsupported Stance- Eyes Closed Falls Without Assistance Unsupported Stance- Eyes Open Independent, <30 seconds Reaching Forward Standing Safely, 5 inches Pick- Up Object From Floor Requires Assistance Look Behind Shoulder - Standing Shifts Weight Well Turning 360 Degrees Turns slowly, but safely Unsupported Stance, Alternating Feet on Assist to Prevent Fall Stair Unsupported Tandem Stance Holds Tandem- 30 seconds Unilateral Leg Stance Lifts Leg/Unable to Hold Total Score Chandler Total Score (out of 56 points) 29 Chandler Impairment Rating 40 to 59% Impaired (Score 23- 33) Almonte Fall Scale Copyright Permission PT-OP-E Functional Tests Start: 04/10/20 15:16 Freq: Status: Active Protocol: Document 04/10/20 11:15 DCW (Rec: 04/10/20 17:49 DCW [id number]) Functional Tests Dynamic Gait Index (DGI) Score 10/17 DGI Impairment Rating 40 to <60% Impaired (Score 10- 14) PT-OP-G Mobility & Gait Start: 04/10/20 17:51 Freq: Status: Active Protocol: Document 04/10/20 11:15 DCW (Rec: 04/10/20 17:53 DCW [id number]) OP Gait Assessment Gait Gait Assistance Required: Contact Guard Assist Distance (Feet) 150 Assistive Devices Assistive Device Gait Belt,Small Based Quad Cane Gait Deviations General Gait Pattern Ataxic,Decreased Stride Length ,Decreased Feet Clearance, Flexed Trunk,Lateral Trunk Lean Factors Limiting Gait Function Factors Limiting Gait Function Decreased Activity Tolerance, Decreased Strength, Incoordination,Poor Balance Comments Gait Comments Pt ambulates with an ataxic gait pattern, significant path deviation, poor foot clearance, and a left foot slap. PT-OP-H Neuro Start: 04/10/20 15:16 Freq: Status: Active Protocol: Document 04/10/20 11:15 DCW (Rec: 04/10/20 17:49 DCW [id number]) Sensation Evaluation Location Details Foot Protective Sensation Intact/Normal Proprioception (Position) Intact/Normal PT-OP-M Strength Start: 04/10/20 15:16 Freq: Status: Active Protocol: Document 04/10/20 11:15 DCW (Rec: 04/10/20 17:49 DCW [id number]) Hip Strength Hip Manual Muscle Testing Right Flexion (L2) 4 Good Abduction 4 Good Adduction 4 Good External Rotation 4+ Good+ Internal Rotation 4+ Good+ Left Flexion (L2) 3+ Fair+ Abduction 3- Fair- Adduction 4 Good External Rotation 4+ Good+ Internal Rotation 4+ Good+ Knee Strength Knee Manual Muscle Testing Right Flexion (S2) 4+ Good+ Extension (L3) 4+ Good+ Left Flexion (S2) 4+ Good+ Extension (L3) 4+ Good+ Ankle/Foot Strength Ankle and Foot Manual Muscle Testing Right Dorsiflexion (L4) 4 Good Plantarflexion (S1) 4 Good Left Dorsiflexion (L4) 4 Good Plantarflexion (S1) 4 Good PT-OP-Q Treatments Start: 04/10/20 15:16 Freq: Status: Active Protocol: Document 05/10/20 11:15 DCW (Rec: 05/10/20 12:00 DCW [id number]) Cardio Equipment Recumbent Elliptical (Biodex) Duration (Minutes) 6 Resistance 5 Seat Position 10 Gym Equipment Shuttle Recovery Unilateral Squats Resistance 37# Shuttle Recovery Platform Stable Bilateral Squats Resistance 75# Shuttle Recovery Platform Stable Shuttle Balance Blue loops Details Wide JES (EO,EC), Staggered Therapeutic Activity Therapeutic Activity resisted walking Name forward, retro and side to side Reps/Minutes x20 feet each Comments Green T-band Neuro Re-Education Treatment Balance Activities 6 Details Balance board - lateral weight shift PT-OP-T Assessment and Plan Start: 04/10/20 09:44 Freq: Status: Active Protocol: Document 05/10/20 11:15 DCW (Rec: 05/10/20 12:00 DCW [id number]) Physical Therapy Assessment Impairments Impairments Activity Tolerance,Balance, Functional Activities, Functional Mobility,Gait, Posture,Strength,Tone Goals Four Impairment Pt presents with left hip weakness Usp Goal (LTG) L hip MMT to test >4-/5 flexion and abduction LTG Duration 06/10/20 Three Impairment Pt displays poor gait, with moderate path deviation and poor foot clearance Usp Goal (LTG) Pt to ambulate two full laps in the gym (~340') with no instances of foot slap. LTG Duration 06/10/20 Two Impairment Pt displays increased falls risk Short Term Goal (STG) Pt to improve Chandler balance score to 35/56 to indicate decreased fall risk. STG Duration 05/10/20 Machine Joint Cutter Goal (LTG) Pt to improve DGI score to 16/ 24 to indicate decreased falls risk LTG Duration 06/10/20 One Impairment Pt does not have an appropriate home exercise program Short Term Goal (STG) Pt to be independent and compliant with an appropriate HEP STG Duration 05/10/20 Assessment Summary Assessment Pt had increased retropulsion during balance training today, but continues to do better with activity tolerance Physical Therapy Plan Frequency and Duration Frequency of Treatment 2x/Week Duration of Treatment 10 weeks Plan of Care Start Date 04/10/20 Plan of Care End Date 06/19/20 Therapeutic Interventions Therapeutic Interventions Aquatic Therapy,Balance Training,Gait Training,Home Exercise Program,Manual Therapy,Neuromuscular Re- education,Patient/Caregiver Education,Self-Care/Home Management,Therapeutic Activities,Therapeutic Exercises Next Visit Focus/Plan Next Note Type Treatment Note Next Visit Plan Balance training, gait training, LE strengthening
--- NOTE | 2020-06-05 17:11 | PT.OPDS ---
Current Diagnoses Ataxic gait (05/10/20) Other abnormalities of gait and mobility (05/10/20) Repeated falls (05/10/20) Weakness (05/10/20) Visit Care Team Role Provider Type Martín West MD Attending Provider Physician Primary Care Provider Referring Provider Specialty: Family Practice Address: [address] [place] [address], [address], [place], [address] Email: Visit Number Visit Number 7 Discharge Summary PT-OP-B Current Condition Start: 04/10/20 15:16 Freq: Status: Active Protocol: Document 04/10/20 11:15 DCW (Rec: 04/10/20 17:49 DCW [id number]) Current Condition History of Current Condition Onset Date 4-5 months Current Complaints Falls, imbalance, gait difficulty History of Current Condition Pt is a 79 year old male presenting with complaints of falls, imbalance, and deconditioning. Pt reports that a few months ago, before all this virus shutdown stuff , he noticed he was less stable, and suffered multiple falls. Pt reports that now, since he was shut in his house for three months, it is even worse, and he feels like he has just become very weak and deconditioned. Pt notes that he feels tippy and slow trying to walk with his quad cane. Notes that his goal is to walk normally and not fall down. PT-OP-C Subjective Start: 04/10/20 15:16 Freq: Status: Active Protocol: Document 05/10/20 11:15 DCW (Rec: 05/10/20 12:00 DCW [id number]) OP-PT Subjective Patient Comments Patient Comments I'd rather be outside walking than in here, but here we are . PT-OP-D Balance Start: 04/10/20 15:16 Freq: Status: Active Protocol: Document 04/10/20 11:15 DCW (Rec: 04/10/20 17:49 DCW [id number]) OP-PT Balance Assessment Sitting Balance Static Sitting Balance Ability Good Dynamic Sitting Balance Ability Good Standing Balance Static Standing Balance Ability Poor Dynamic Standing Balance Ability Poor Device Used Quad cane Balance Tests Chandler Balance Test Chandler Balance Test Score 29/56 Chandler Impairment Rating 40 to 59% Impaired (Score 23- 33) Chandler Balance Assessment Evaluation Sitting to Standing Ability Independent w/out Hands Unsupported Stance 30 seconds Sitting Unsupported, Feet on Floor Safely- 2 minutes Standing to Sitting Ability Assist, Use Legs on Chair Transfer Ability Supervision, Verbal Cues Unsupported Stance- Eyes Closed Falls Without Assistance Unsupported Stance- Eyes Open Independent, <30 seconds Reaching Forward Standing Safely, 5 inches Pick- Up Object From Floor Requires Assistance Look Behind Shoulder - Standing Shifts Weight Well Turning 360 Degrees Turns slowly, but safely Unsupported Stance, Alternating Feet on Assist to Prevent Fall Stair Unsupported Tandem Stance Holds Tandem- 30 seconds Unilateral Leg Stance Lifts Leg/Unable to Hold Total Score Chandler Total Score (out of 56 points) 29 Chandler Impairment Rating 40 to 59% Impaired (Score 23- 33) Almonte Fall Scale Copyright Permission PT-OP-E Functional Tests Start: 04/10/20 15:16 Freq: Status: Active Protocol: Document 04/10/20 11:15 DCW (Rec: 04/10/20 17:49 DCW [id number]) Functional Tests Dynamic Gait Index (DGI) Score 12/24 DGI Impairment Rating 40 to <60% Impaired (Score 10- 14) PT-OP-G Mobility & Gait Start: 04/10/20 17:51 Freq: Status: Active Protocol: Document 04/10/20 11:15 DCW (Rec: 04/10/20 17:53 DCW [id number]) OP Gait Assessment Gait Gait Assistance Required: Contact Guard Assist Distance (Feet) 150 Assistive Devices Assistive Device Gait Belt,Small Based Quad Cane Gait Deviations General Gait Pattern Ataxic,Decreased Stride Length ,Decreased Feet Clearance, Flexed Trunk,Lateral Trunk Lean Factors Limiting Gait Function Factors Limiting Gait Function Decreased Activity Tolerance, Decreased Strength, Incoordination,Poor Balance Comments Gait Comments Pt ambulates with an ataxic gait pattern, significant path deviation, poor foot clearance, and a left foot slap. PT-OP-H Neuro Start: 04/10/20 15:16 Freq: Status: Active Protocol: Document 04/10/20 11:15 DCW (Rec: 04/10/20 17:49 DCW [id number]) Sensation Evaluation Location Details Foot Protective Sensation Intact/Normal Proprioception (Position) Intact/Normal PT-OP-M Strength Start: 04/10/20 15:16 Freq: Status: Active Protocol: Document 04/10/20 11:15 DCW (Rec: 04/10/20 17:49 DCW [id number]) Hip Strength Hip Manual Muscle Testing Right Flexion (L2) 4 Good Abduction 4 Good Adduction 4 Good External Rotation 4+ Good+ Internal Rotation 4+ Good+ Left Flexion (L2) 3+ Fair+ Abduction 3- Fair- Adduction 4 Good External Rotation 4+ Good+ Internal Rotation 4+ Good+ Knee Strength Knee Manual Muscle Testing Right Flexion (S2) 4+ Good+ Extension (L3) 4+ Good+ Left Flexion (S2) 4+ Good+ Extension (L3) 4+ Good+ Ankle/Foot Strength Ankle and Foot Manual Muscle Testing Right Dorsiflexion (L4) 4 Good Plantarflexion (S1) 4 Good Left Dorsiflexion (L4) 4 Good Plantarflexion (S1) 4 Good PT-OP-T Assessment and Plan Start: 04/10/20 09:44 Freq: Status: Active Protocol: Document 06/05/20 17:09 DCW (Rec: 06/05/20 17:11 DCW [id number]) Physical Therapy Assessment Assessment Summary Assessment Unfortunately, pt suffered a left MCA CVA on 05/14/20. Pt was admitted to hospital. Pt will be discharged from skilled therapy at this time.
== END 2020-06-06 08:18 ==
LOC: PHYS 11:15
PROVIDERS: PCP Family Medicine; Referring Provider Family Medicine; Visit Provider Family Medicine
DX: R29.6 Repeated falls (principal); R53.1 Weakness; R26.0 Ataxic gait; R26.89 Other abnormalities of gait and mobility
CPT/HCPCS: 97110; 97112; 97163

== ENCOUNTER 2020-05-13 16:27 | Inpatient (IN) | payer MEDICARE, OTHER, SELFPAY ==
[2020-05-13] VITALS (15 sets, daily range): BP systolic 154–192; BP diastolic 74–123; PULSE 73–88; RESP 14–28; TEMP 36.4–37.1; O2SAT 94–97; BMI 43.0
--- NOTE | 2020-05-13 16:36 | DI.CT.S_ITS ---
PROCEDURE: CT HEAD/BRAIN WO CON INDICATIONS: mental status changes TECHNIQUE: Noncontrast 4.5 mm thick angled axial sections acquired from the foramen magnum to the vertex, with coronal and sagittal reformats. For radiation dose reduction, the following was used: automated exposure control, adjustment of mA and/or kV according to patient size. COMPARISON: [facility], CT, CT HEAD/BRAIN WO CON, 09/13/2019, 15:40. FINDINGS: Image quality: Excellent. CSF spaces: Basal cisterns are patent. No extra-axial fluid collections. The ventricles are symmetric in size and shape. Brain: No intracranial bleeds or masses. There is cerebral volume loss for age, with resultant ventricular and sulcal prominence. There are periventricular and deep white matter chronic small vessel ischemic changes. There is intracranial internal carotid artery atherosclerosis. Skull and face: Calvarium and visualized facial bones appear intact, without suspicious lesions. Sinuses: Visualized sinuses and mastoids are clear. IMPRESSION: No CT evidence of acute intracranial pathology. No significant changes from previous study. Dictated by: Don Hall M.D. on 05/13/2020 at 16:56 Approved by: Don Hall M.D. on 05/13/2020 at 16:56
--- NOTE | 2020-05-13 17:30 | DI.RAD.S_ITS ---
PROCEDURE: XR CHEST 1V INDICATIONS: mental status changes. TECHNIQUE: One view of the chest was acquired. COMPARISON: [facility], CR, XR CHEST 2V, 07/01/2018, 12:53. FINDINGS: Surgical changes and devices: Median sternotomy changes are present. Lungs and pleura: Interstitial prominence within the perihilar regions is noted. No large area of pulmonary consolidation is identified. No large effusion or pneumothorax is evident. Mediastinum: Mediastinal contours appear normal. Heart size is mildly enlarged. There is aortic atherosclerosis. Bones and chest wall: No suspicious bony lesions. Overlying soft tissues appear unremarkable. IMPRESSION: Cardiomegaly with mild associated vascular congestion. Dictated by: Mik Guerin M.D. on 05/13/2020 at 16:44 Approved by: Mik Guerin M.D. on 05/13/2020 at 16:45
--- NOTE | 2020-05-13 17:54 | ED.AMS ---
HPI - Altered Mental Status <Martín Knowles MD - Last Filed: 05/14/20 09:55> General Chief Complaint: Altered Mental Status Stated Complaint: Abnormal behavior x2 days Time Seen by Provider: 05/13/20 16:36 Source: EMS Mode of arrival: EMS Limitations: altered mental status History of Present Illness HPI narrative: The patient arrives by EMS with altered mental status. Historians are his with dementia, and her best friend. Anjum and his live at home with nursing assistance. They describe situation where his ability to self-care been declining for 2-3 weeks. He has had no fall, no injury. He has no obvious illness. He has been ambulatory, he now walks with a shuffling gait. However in recent days he has not been walking at all. Over the last 2-3 weeks, his speech has declined. Paramedics described a word salad, no discernible answers. Between the paramedics and the in friend, there is no discernible headache, cough or difficulty breathing. There was no suggestive chest pain. His appetite has been decreased but he is still eating and drinking. He has urine output. He has had no abdominal discomfort. He has no history of urinary symptoms. He moves all extremities, but motion is decreased, consistent with his ataxia. He has no history of dementia. There is no obvious history of stroke. Medical records are reviewed. He has a history of hypertension, diabetes, coronary artery disease, and colon cancer. Related Data Home Medications Medication Instructions Recorded Confirmed allopurinol 300 mg tablet 300 mg PO DAILY 04/03/19 09/13/19 amlodipine 5 mg tablet 5 mg PO DAILY 04/03/19 09/13/19 aspirin 81 mg tablet,delayed 81 mg PO DAILY 04/03/19 09/13/19 release escitalopram oxalate 10 mg tablet 10 mg PO DAILY 04/03/19 09/13/19 losartan-hydrochlorothiazide 1 tab PO DAILY 04/03/19 09/13/19 metformin 500 mg tablet 500 mg PO BID 04/03/19 09/13/19 uczdgjkr-qiy-ghmlp acid 300 1 tab PO DAILY 04/03/19 09/13/19 mcg-lycopene 600 mcg-lutein 300 mcg tablet nebivolol 5 mg tablet 5 mg PO DAILY 04/03/19 09/13/19 nifedipine 30 mg tablet,extended 30 mg PO DAILY 04/03/19 09/13/19 release sildenafil 100 mg tablet 100 mg PO DAILY PRN 04/03/19 09/13/19 tamsulosin 0.4 mg capsule 0.4 mg PO DAILY 04/03/19 09/13/19 docusate sodium [Stool Softener] 100 mg PO DAILY 09/13/19 09/13/19 finasteride 5 mg PO DAILY 09/13/19 09/13/19 Previous Rx's Medication Instructions Recorded ondansetron 4 mg PO Q8H PRN #10 tab 04/03/20 Allergies Allergy/AdvReac Type Severity Reaction Status Date / Time No Known Drug Allergies Allergy Verified 09/13/19 15:14 Review of Systems <Martín Knowles MD - Last Filed: 05/14/20 09:55> Review of Systems Narrative: ROS is limited to the information obtained from his in her friend. Verbal responses from the patient's are minimal. Patient History <Martín Knowles MD - Last Filed: 05/14/20 09:55> Medical History BPH (benign prostatic hyperplasia) (Acute) Colon cancer (Acute) Coronary artery disease (Acute) Diabetes (Acute) Gout (Acute) Hypertension (Acute) Surgical History Heart valve replaced (Acute) History of appendectomy (Acute) History of colon surgery (Acute) Social History marital status: household members: spouse lives independently: Yes Smoking Status: Never smoker alcohol intake: former Smoking Status: Former smoker alcohol intake frequency: holidays/special occasions only Substance Use Type: does not use Exam <Martín Knowles MD - Last Filed: 05/14/20 09:55> Initial Vital Signs Initial Vital Signs: Vital Signs Temperature 98.7 F 05/13/20 16:54 Pulse Rate 79 05/13/20 16:54 Respiratory Rate 15 05/13/20 16:54 Blood Pressure 160/79 H 05/13/20 16:54 Pulse Oximetry 95 05/13/20 16:54 Const General: ill appearing and lethargic Nutritional Appearance: average body habitus Limitations: altered mental status HENMT Mouth: oral mucosae normal Throat: posterior oropharynx normal Eyes General: appearance normal, both eyes and all related structures Eyelids: eyelids normal Conjunctivae: conjunctivae normal Sclera: sclerae normal Pupils: PERRL EOM: EOM intact bilaterally Neck Neck: No lymphadenopathy and No JVD Resp Effort & Inspection: normal respiratory effort, able to speak in complete sentences, no respiratory distress and no use of accessory muscles Auscultation: clear to auscultation bilaterally, no rales, no rhonchi and no wheezes Cardio Rate: regular rate Rhythm: regular rhythm Heart Sounds: S1 normal, S2 normal, no click, no gallops, no murmurs and no rubs Pulses: normal peripheral pulses GI Inspection: non-distended Palpation: soft, no hepatosplenomegaly, No guarding, No pulsatile mass and No tender Auscultation: normal bowel sounds Back/Spine/Pelvis Back: normal to inspection and No back tenderness Skin General: no rashes or lesions noted and No petechiae Neuro General: patient confused (He is sleeping, but arouses. He has minimal verbal responses.) Extrem Other: Normal bone, minimal motion. No lower extremity edema. Psych Other: Minimally responsive. <Mary Kumar MD - Last Filed: 05/14/20 05:32> Initial Vital Signs Initial Vital Signs: Vital Signs Temperature 98.7 F 05/13/20 16:54 Pulse Rate 79 05/13/20 16:54 Respiratory Rate 15 05/13/20 16:54 Blood Pressure 160/79 H 05/13/20 16:54 Pulse Oximetry 95 05/13/20 16:54 Course <Martín Knowles MD - Last Filed: 05/14/20 09:55> Course Course Narrative: The patient presents with an unclear history. He was seen here last month for similar complaints, comparing his current situation versus the notes from last month he seems of going down hill. His motor skills, and his communication skills have definitely declined. Head CT is not indicated stroke, EKG chest x-ray showed no acute changes. The remainder of his workup is pending. He has still been assessed for chemical abnormalities and infection. He is are receiving nursing care at home. I have discussed the patient with my your partner, Dr. Kumar. She will assume management of the patient, and provide disposition. Geneva Knowles MD Orders Ordered: Acetaminophen (Tylenol) 650 mg WA Q6HR PRN PRN Reason: Fever Aspirin (Aspirin Ec) 81 mg PO DAILY [facility] Last Admin: 05/14/20 09:24 Dose: 81 mg Documented by: BRIAN Atorvastatin Calcium (Lipitor) 20 mg PO BEDTIME JELLY Clopidogrel Bisulfate (Plavix) 75 mg PO DAILY [facility] Last Admin: 05/14/20 09:25 Dose: 75 mg Documented by: BRIAN Dextrose (D50w) 25 gm IV PRN PRN; Protocol PRN Reason: Hypoglycemia Enoxaparin Sodium (Lovenox) 40 mg SUBCUT BID [facility] Last Admin: 05/14/20 08:56 Dose: 40 mg Documented by: BRIAN Sodium Chloride (Normal Saline 0.9%) 1,000 mls @ 75 mls/hr IV CONT [facility] Last Admin: 05/14/20 03:26 Dose: Not Given Documented by: CHIVO Insulin Aspart (Novolog Flexpen) 0 unit SUBCUT ACHS [facility]; Protocol Last Admin: 05/14/20 08:52 Dose: Not Given Documented by: BRIAN Naloxone HCl (Narcan) 0.2 mg IV Q2MIN PRN PRN Reason: Opiate Reversal Ondansetron HCl (Zofran) 4 mg IV Q8HR PRN PRN Reason: Nausea And Vomiting Discontinued Medications Sodium Chloride (Normal Saline 0.9%) 1,000 mls @ 150 mls/hr IV CONT [facility] Last Infusion: 05/13/20 22:29 Dose: 0 mls/hr Documented by: Admin: 05/13/20 21:07 Dose: 150 mls/hr Documented by: JONNIE Sodium Chloride (Normal Saline 0.9%) 1,000 mls @ 1,000 mls/hr IV BOLUS ONE Stop: 05/13/20 18:43 Last Infusion: 05/13/20 19:50 Dose: 0 mls/hr Documented by: Admin: 05/13/20 18:00 Dose: 1,000 mls/hr Documented by: ELSIE Potassium Chloride 60 meq/ (Sodium Chloride) 280 mls @ 88.333 mls/hr IV NOW ONE Stop: 05/14/20 01:58 Last Admin: 05/14/20 02:18 Dose: 88.333 mls/hr Documented by: CHIVO Cosigned by: LMILLER Labetalol HCl (Trandate) 10 mg IV NOW ONE Stop: 05/13/20 22:38 Last Admin: 05/14/20 02:20 Dose: Not Given Documented by: CHIVO Vital Signs Vital signs: Vital Signs - 8 hr 05/13/20 22:00 Pulse Rate 73 Respiratory Rate 18 Blood Pressure 181/101 H <Mary Kumar MD - Last Filed: 05/14/20 05:32> Orders Ordered: Acetaminophen (Tylenol) 650 mg WA Q6HR PRN PRN Reason: Fever Aspirin (Aspirin Ec) 81 mg PO DAILY [facility] Last Admin: 05/14/20 09:24 Dose: 81 mg Documented by: BRIAN Atorvastatin Calcium (Lipitor) 20 mg PO BEDTIME JELLY Clopidogrel Bisulfate (Plavix) 75 mg PO DAILY [facility] Last Admin: 05/14/20 09:25 Dose: 75 mg Documented by: BRIAN Dextrose (D50w) 25 gm IV PRN PRN; Protocol PRN Reason: Hypoglycemia Enoxaparin Sodium (Lovenox) 40 mg SUBCUT BID [facility] Last Admin: 05/14/20 08:56 Dose: 40 mg Documented by: BRIAN Sodium Chloride (Normal Saline 0.9%) 1,000 mls @ 75 mls/hr IV CONT [facility] Last Admin: 05/14/20 03:26 Dose: Not Given Documented by: CHIVO Insulin Aspart (Novolog Flexpen) 0 unit SUBCUT ACHS [facility]; Protocol Last Admin: 05/14/20 08:52 Dose: Not Given Documented by: BRIAN Naloxone HCl (Narcan) 0.2 mg IV Q2MIN PRN PRN Reason: Opiate Reversal Ondansetron HCl (Zofran) 4 mg IV Q8HR PRN PRN Reason: Nausea And Vomiting Discontinued Medications Sodium Chloride (Normal Saline 0.9%) 1,000 mls @ 150 mls/hr IV CONT [facility] Last Infusion: 05/13/20 22:29 Dose: 0 mls/hr Documented by: Admin: 05/13/20 21:07 Dose: 150 mls/hr Documented by: JONNIE Sodium Chloride (Normal Saline 0.9%) 1,000 mls @ 1,000 mls/hr IV BOLUS ONE Stop: 05/13/20 18:43 Last Infusion: 05/13/20 19:50 Dose: 0 mls/hr Documented by: Admin: 05/13/20 18:00 Dose: 1,000 mls/hr Documented by: ELSIE Potassium Chloride 60 meq/ (Sodium Chloride) 280 mls @ 88.333 mls/hr IV NOW ONE Stop: 05/14/20 01:58 Last Admin: 05/14/20 02:18 Dose: 88.333 mls/hr Documented by: CHIVO Cosigned by: SADA Labetalol HCl (Trandate) 10 mg IV NOW ONE Stop: 05/13/20 22:38 Last Admin: 05/14/20 02:20 Dose: Not Given Documented by: CHIVO Vital Signs Vital signs: Vital Signs - 8 hr 05/13/20 22:00 Pulse Rate 73 Respiratory Rate 18 Blood Pressure 181/101 H MDM - Altered Mental Status <Martín Knowles MD - Last Filed: 05/14/20 09:55> Lab Data Result diagrams: 05/14/20 04:40 05/14/20 04:40 Labs: Lab Results 05/13/20 05/13/20 05/13/20 Range/Units 17:45 17:45 17:45 WBC 7.0 (4.5-11.0) X10^3/uL RBC 4.71 (4.5-5.9) X10^6/uL Hgb 14.0 (13.5-17.5) g/dL Hct 40.2 L (41-53) % MCV 85.3 (80-100) fL MCH 29.7 (26-34) PG MCHC 34.8 (30-36) % RDW 14.4 (11.6-14.8) % Plt Count 214 (150-400) X10^3/uL Neut % (Auto) 80.2 H (50-75) % Lymph % (Auto) 11.0 L (25-40) % [place] % (Auto) 6.9 (3-14) % Eos % (Auto) 1.2 L (2-4) % Baso % (Auto) 0.7 (0-2) % Neut # (Auto) 5600 (5936-1933) /uL Lymph # (Auto) 800 L (5032-9814) /uL [place] # (Auto) 500 (0-900) /uL Eos # (Auto) 100 (0-450) /uL Baso # (Auto) 0 (0-100) /uL PT 12.1 (10.1-12.7) SECONDS INR 1.1 (0.9-1.3) Sodium 139 (137-145) mmol/L Potassium 2.8 L (3.4-5.1) mmol/L Chloride 104 (98-107) mmol/L Carbon Dioxide 28 (22-32) mmol/L BUN 15 (9-20) mg/dL Creatinine 0.61 L (0.66-1.25) mg/dL Estimated GFR > 60.0 (>60) mL/min BUN/Creatinine Ratio 24.6 H (6-22) Glucose 150 H (80-110) mg/dL Lactate (0.7-2.1) mmol/L Calcium 9.6 (8.4-10.2) mg/dL Magnesium (1.6-2.3) mg/dL Total Bilirubin 0.6 (0.2-1.3) mg/dL AST 29 (17-59) IU/L ALT 38 (<50) IU/L Alkaline Phosphatase 78 (38-126) U/L Ammonia (9-30) umol/L Troponin I (0.01-0.034) ng/mL Total Protein 6.6 (6.3-8.2) g/dL Albumin 3.8 (3.5-5.0) g/dL Globulin 2.8 (1.7-4.1) g/dL Albumin/Globulin Ratio 1.4 (1.0-2.8) Prolactin 13.8 (3.7-17.9) ng/mL Urine Color Urine Appearance Urine pH (4.5-8.0) Ur Specific [place] (1.000-1.035) Urine Protein (Negative) Urine Glucose (UA) (Negative) g/dL Urine Ketones (NEGATIVE) Urine Occult Blood (Negative) Urine Nitrate (Negative) Urine Bilirubin (NEGATIVE) Urine Urobilinogen (0.2) E.U./dL Ur Leukocyte Esterase (NEGATIVE) Urine RBC (0-5/HPF) Urine WBC (0-5/HPF) Ur Squamous Epith Cells (0-5/HPF) Urine Bacteria (None) Urine Mucus (Negative) Ur Culture Indicated? 05/13/20 05/13/20 05/13/20 Range/Units 17:45 17:45 17:45 WBC (4.5-11.0) X10^3/uL RBC (4.5-5.9) X10^6/uL Hgb (13.5-17.5) g/dL Hct (41-53) % MCV (80-100) fL MCH (26-34) PG MCHC (30-36) % RDW (11.6-14.8) % Plt Count (150-400) X10^3/uL Neut % (Auto) (50-75) % Lymph % (Auto) (25-40) % [place] % (Auto) (3-14) % Eos % (Auto) (2-4) % Baso % (Auto) (0-2) % Neut # (Auto) (2628-2679) /uL Lymph # (Auto) (9961-4382) /uL [place] # (Auto) (0-900) /uL Eos # (Auto) (0-450) /uL Baso # (Auto) (0-100) /uL PT (10.1-12.7) SECONDS INR (0.9-1.3) Sodium (137-145) mmol/L Potassium (3.4-5.1) mmol/L Chloride (98-107) mmol/L Carbon Dioxide (22-32) mmol/L BUN (9-20) mg/dL Creatinine (0.66-1.25) mg/dL Estimated GFR (>60) mL/min BUN/Creatinine Ratio (6-22) Glucose (80-110) mg/dL Lactate 1.3 (0.7-2.1) mmol/L Calcium (8.4-10.2) mg/dL Magnesium 1.8 (1.6-2.3) mg/dL Total Bilirubin (0.2-1.3) mg/dL AST (17-59) IU/L ALT (<50) IU/L Alkaline Phosphatase (38-126) U/L Ammonia < 9 L (9-30) umol/L Troponin I (0.01-0.034) ng/mL Total Protein (6.3-8.2) g/dL Albumin (3.5-5.0) g/dL Globulin (1.7-4.1) g/dL Albumin/Globulin Ratio (1.0-2.8) Prolactin (3.7-17.9) ng/mL Urine Color Urine Appearance Urine pH (4.5-8.0) Ur Specific [place] (1.000-1.035) Urine Protein (Negative) Urine Glucose (UA) (Negative) g/dL Urine Ketones (NEGATIVE) Urine Occult Blood (Negative) Urine Nitrate (Negative) Urine Bilirubin (NEGATIVE) Urine Urobilinogen (0.2) E.U./dL Ur Leukocyte Esterase (NEGATIVE) Urine RBC (0-5/HPF) Urine WBC (0-5/HPF) Ur Squamous Epith Cells (0-5/HPF) Urine Bacteria (None) Urine Mucus (Negative) Ur Culture Indicated? 05/13/20 05/13/20 Range/Units 17:45 20:10 WBC (4.5-11.0) X10^3/uL RBC (4.5-5.9) X10^6/uL Hgb (13.5-17.5) g/dL Hct (41-53) % MCV (80-100) fL MCH (26-34) PG MCHC (30-36) % RDW (11.6-14.8) % Plt Count (150-400) X10^3/uL Neut % (Auto) (50-75) % Lymph % (Auto) (25-40) % [place] % (Auto) (3-14) % Eos % (Auto) (2-4) % Baso % (Auto) (0-2) % Neut # (Auto) (5468-0120) /uL Lymph # (Auto) (7321-2630) /uL [place] # (Auto) (0-900) /uL Eos # (Auto) (0-450) /uL Baso # (Auto) (0-100) /uL PT (10.1-12.7) SECONDS INR (0.9-1.3) Sodium (137-145) mmol/L Potassium (3.4-5.1) mmol/L Chloride (98-107) mmol/L Carbon Dioxide (22-32) mmol/L BUN (9-20) mg/dL Creatinine (0.66-1.25) mg/dL Estimated GFR (>60) mL/min BUN/Creatinine Ratio (6-22) Glucose (80-110) mg/dL Lactate (0.7-2.1) mmol/L Calcium (8.4-10.2) mg/dL Magnesium (1.6-2.3) mg/dL Total Bilirubin (0.2-1.3) mg/dL AST (17-59) IU/L ALT (<50) IU/L Alkaline Phosphatase (38-126) U/L Ammonia (9-30) umol/L Troponin I 0.020 (0.01-0.034) ng/mL Total Protein (6.3-8.2) g/dL Albumin (3.5-5.0) g/dL Globulin (1.7-4.1) g/dL Albumin/Globulin Ratio (1.0-2.8) Prolactin (3.7-17.9) ng/mL Urine Color Yellow Urine Appearance Clear Urine pH 6.0 (4.5-8.0) Ur Specific [place] 1.015 (1.000-1.035) Urine Protein Trace H (Negative) Urine Glucose (UA) Negative (Negative) g/dL Urine Ketones Negative (NEGATIVE) Urine Occult Blood Negative (Negative) Urine Nitrate Negative (Negative) Urine Bilirubin Negative (NEGATIVE) Urine Urobilinogen 0.2 (0.2) E.U./dL Ur Leukocyte Esterase Negative (NEGATIVE) Urine RBC None seen (0-5/HPF) Urine WBC 0-1/hpf (0-5/HPF) Ur Squamous Epith Cells 0-1 /hpf (0-5/HPF) Urine Bacteria None seen (None) Urine Mucus 2+ H (Negative) Ur Culture Indicated? Cult not indicated Point of Care Testing Glucose POC 150 Imaging Data Chest x-ray: Radiologist's Impression: [address] [address] Ultrasound Report Signed Patient: SimmonsMartín yuen LMR#: [id number] : 5Acct:[id number] Age/Sex: 87 / MDate of Service: 05/13/20 Loc: ED Accession Number: [id number] Procedure: US abdomen limited Ordering Provider: Martín Knowles MD PROCEDURE: US ABDOMEN LIMITED INDICATIONS: EPIGASTRIC PAIN TECHNIQUE: Real-time focused scanning was performed of the abdomen, with image documentation. COMPARISON: [facility], CT, CT ABDOMEN PELVIS WO CON, 10/26/2019, 15:08. FINDINGS: Limited study at clinician request. The liver measures 13.3 cm in craniocaudad length and appears mildly coarse, potentially a manifestation of fatty infiltration. No cirrhosis is found. Note is made of prior cholecystectomy, and no biliary distention is seen. The common duct measures up to 5 mm, normal. The pancreas is relatively poorly seen due to overlying bowel gas. Incidental note is made of a 5.8 x 5.9 x 6.7 cm dominant right inferior renal cortical cyst. IMPRESSION: Source of epigastric pain is not found. Prior cholecystectomy. Dominant inferior right renal cortical cyst has been previously identified by CT scanning. Dictated by: Felipe Cuevas M.D. on 05/13/2020 at 16:24 Approved by: Felipe Cuevas M.D. on 05/13/2020 at 16:26 CT scan - head: Radiologist's Impression: No acute process. <Mary Kumar MD - Last Filed: 05/14/20 05:32> Medical Records Attestation: I reviewed the patient's medical records. Lab Data Attestation: I reviewed the patient's lab results. Labs: Lab Results 05/13/20 05/13/20 05/13/20 Range/Units 17:45 17:45 17:45 WBC 7.0 (4.5-11.0) X10^3/uL RBC 4.71 (4.5-5.9) X10^6/uL Hgb 14.0 (13.5-17.5) g/dL Hct 40.2 L (41-53) % MCV 85.3 (80-100) fL MCH 29.7 (26-34) PG MCHC 34.8 (30-36) % RDW 14.4 (11.6-14.8) % Plt Count 214 (150-400) X10^3/uL Neut % (Auto) 80.2 H (50-75) % Lymph % (Auto) 11.0 L (25-40) % [place] % (Auto) 6.9 (3-14) % Eos % (Auto) 1.2 L (2-4) % Baso % (Auto) 0.7 (0-2) % Neut # (Auto) 5600 (0662-1769) /uL Lymph # (Auto) 800 L (3723-4502) /uL [place] # (Auto) 500 (0-900) /uL Eos # (Auto) 100 (0-450) /uL Baso # (Auto) 0 (0-100) /uL PT 12.1 (10.1-12.7) SECONDS INR 1.1 (0.9-1.3) Sodium 139 (137-145) mmol/L Potassium 2.8 L (3.4-5.1) mmol/L Chloride 104 (98-107) mmol/L Carbon Dioxide 28 (22-32) mmol/L BUN 15 (9-20) mg/dL Creatinine 0.61 L (0.66-1.25) mg/dL Estimated GFR > 60.0 (>60) mL/min BUN/Creatinine Ratio 24.6 H (6-22) Glucose 150 H (80-110) mg/dL Lactate (0.7-2.1) mmol/L Calcium 9.6 (8.4-10.2) mg/dL Magnesium (1.6-2.3) mg/dL Total Bilirubin 0.6 (0.2-1.3) mg/dL AST 29 (17-59) IU/L ALT 38 (<50) IU/L Alkaline Phosphatase 78 (38-126) U/L Ammonia (9-30) umol/L Troponin I (0.01-0.034) ng/mL Total Protein 6.6 (6.3-8.2) g/dL Albumin 3.8 (3.5-5.0) g/dL Globulin 2.8 (1.7-4.1) g/dL Albumin/Globulin Ratio 1.4 (1.0-2.8) Prolactin 13.8 (3.7-17.9) ng/mL Urine Color Urine Appearance Urine pH (4.5-8.0) Ur Specific [place] (1.000-1.035) Urine Protein (Negative) Urine Glucose (UA) (Negative) g/dL Urine Ketones (NEGATIVE) Urine Occult Blood (Negative) Urine Nitrate (Negative) Urine Bilirubin (NEGATIVE) Urine Urobilinogen (0.2) E.U./dL Ur Leukocyte Esterase (NEGATIVE) Urine RBC (0-5/HPF) Urine WBC (0-5/HPF) Ur Squamous Epith Cells (0-5/HPF) Urine Bacteria (None) Urine Mucus (Negative) Ur Culture Indicated? 05/13/20 05/13/20 05/13/20 Range/Units 17:45 17:45 17:45 WBC (4.5-11.0) X10^3/uL RBC (4.5-5.9) X10^6/uL Hgb (13.5-17.5) g/dL Hct (41-53) % MCV (80-100) fL MCH (26-34) PG MCHC (30-36) % RDW (11.6-14.8) % Plt Count (150-400) X10^3/uL Neut % (Auto) (50-75) % Lymph % (Auto) (25-40) % [place] % (Auto) (3-14) % Eos % (Auto) (2-4) % Baso % (Auto) (0-2) % Neut # (Auto) (9309-2035) /uL Lymph # (Auto) (2973-2609) /uL [place] # (Auto) (0-900) /uL Eos # (Auto) (0-450) /uL Baso # (Auto) (0-100) /uL PT (10.1-12.7) SECONDS INR (0.9-1.3) Sodium (137-145) mmol/L Potassium (3.4-5.1) mmol/L Chloride (98-107) mmol/L Carbon Dioxide (22-32) mmol/L BUN (9-20) mg/dL Creatinine (0.66-1.25) mg/dL Estimated GFR (>60) mL/min BUN/Creatinine Ratio (6-22) Glucose (80-110) mg/dL Lactate 1.3 (0.7-2.1) mmol/L Calcium (8.4-10.2) mg/dL Magnesium 1.8 (1.6-2.3) mg/dL Total Bilirubin (0.2-1.3) mg/dL AST (17-59) IU/L ALT (<50) IU/L Alkaline Phosphatase (38-126) U/L Ammonia < 9 L (9-30) umol/L Troponin I (0.01-0.034) ng/mL Total Protein (6.3-8.2) g/dL Albumin (3.5-5.0) g/dL Globulin (1.7-4.1) g/dL Albumin/Globulin Ratio (1.0-2.8) Prolactin (3.7-17.9) ng/mL Urine Color Urine Appearance Urine pH (4.5-8.0) Ur Specific [place] (1.000-1.035) Urine Protein (Negative) Urine Glucose (UA) (Negative) g/dL Urine Ketones (NEGATIVE) Urine Occult Blood (Negative) Urine Nitrate (Negative) Urine Bilirubin (NEGATIVE) Urine Urobilinogen (0.2) E.U./dL Ur Leukocyte Esterase (NEGATIVE) Urine RBC (0-5/HPF) Urine WBC (0-5/HPF) Ur Squamous Epith Cells (0-5/HPF) Urine Bacteria (None) Urine Mucus (Negative) Ur Culture Indicated? 05/13/20 05/13/20 Range/Units 17:45 20:10 WBC (4.5-11.0) X10^3/uL RBC (4.5-5.9) X10^6/uL Hgb (13.5-17.5) g/dL Hct (41-53) % MCV (80-100) fL MCH (26-34) PG MCHC (30-36) % RDW (11.6-14.8) % Plt Count (150-400) X10^3/uL Neut % (Auto) (50-75) % Lymph % (Auto) (25-40) % [place] % (Auto) (3-14) % Eos % (Auto) (2-4) % Baso % (Auto) (0-2) % Neut # (Auto) (7804-8221) /uL Lymph # (Auto) (6781-0471) /uL [place] # (Auto) (0-900) /uL Eos # (Auto) (0-450) /uL Baso # (Auto) (0-100) /uL PT (10.1-12.7) SECONDS INR (0.9-1.3) Sodium (137-145) mmol/L Potassium (3.4-5.1) mmol/L Chloride (98-107) mmol/L Carbon Dioxide (22-32) mmol/L BUN (9-20) mg/dL Creatinine (0.66-1.25) mg/dL Estimated GFR (>60) mL/min BUN/Creatinine Ratio (6-22) Glucose (80-110) mg/dL Lactate (0.7-2.1) mmol/L Calcium (8.4-10.2) mg/dL Magnesium (1.6-2.3) mg/dL Total Bilirubin (0.2-1.3) mg/dL AST (17-59) IU/L ALT (<50) IU/L Alkaline Phosphatase (38-126) U/L Ammonia (9-30) umol/L Troponin I 0.020 (0.01-0.034) ng/mL Total Protein (6.3-8.2) g/dL Albumin (3.5-5.0) g/dL Globulin (1.7-4.1) g/dL Albumin/Globulin Ratio (1.0-2.8) Prolactin (3.7-17.9) ng/mL Urine Color Yellow Urine Appearance Clear Urine pH 6.0 (4.5-8.0) Ur Specific [place] 1.015 (1.000-1.035) Urine Protein Trace H (Negative) Urine Glucose (UA) Negative (Negative) g/dL Urine Ketones Negative (NEGATIVE) Urine Occult Blood Negative (Negative) Urine Nitrate Negative (Negative) Urine Bilirubin Negative (NEGATIVE) Urine Urobilinogen 0.2 (0.2) E.U./dL Ur Leukocyte Esterase Negative (NEGATIVE) Urine RBC None seen (0-5/HPF) Urine WBC 0-1/hpf (0-5/HPF) Ur Squamous Epith Cells 0-1 /hpf (0-5/HPF) Urine Bacteria None seen (None) Urine Mucus 2+ H (Negative) Ur Culture Indicated? Cult not indicated Point of Care Testing Glucose POC 150 Imaging Data Chest x-ray: Radiologist's Impression: MPRESSION: Cardiomegaly with mild associated vascular congestion. Dictated by: Mik Guerin M.D. on 05/13/2020 at 16:44 CT scan - head: Radiologist's Impression: IMPRESSION: No CT evidence of acute intracranial pathology. No significant changes from previous study. Dictated by: Don Hall M.D. on 05/13/2020 at 16:56 MDM Narrative Medical decision making narrative: 805pm Care is assumed from Dr. Knowles. 79-year-old gentleman with declining physical health over the last 2-3 weeks with altered mental status initiating a 911 call and EMS transfer to the emergency room today. CT scan does not show any acute findings. No significant pathology with abdominal ultrasound or with lab work. Has notably low potassium at 2.8 without significant EKG changes. Urinalysis needs to be obtained and troponin needs to be added to blood work. Unclear diagnosis for altered mental status but with potassium at 2.8 will need to be admitted for potassium replacement and cardiac monitoring. At this time, I still have no clear explanation for the unresponsive status noticed this morning. Patient has gotten up and walked to the bathroom and a walker and is not immediately in the room for evaluation. 940 on further evaluation patient is more awake and clearly has signs and symptoms of a stroke with right-sided weakness. He has no sensation in the bottom half of his face with facial droop, right arm is weak left leg is weak and he has altered mental status NIH Stroke Scale/Score (NIHSS) from [email or web address] on 05/13/2020 RESULT SUMMARY: 11 points NIH Stroke Scale INPUTS: 1A: Level of consciousness ?> 1 = Arouses to minor stimulation 1B: Ask month and age ?> 1 = 1 question right 1C: 'Blink eyes' & 'squeeze hands' ?> 1 = Performs 1 task 2: Horizontal extraocular movements ?> 0 = Normal 3: Visual singletary ?> 0 = No visual loss 4: Facial palsy ?> 2 = Partial paralysis (lower face) 5A: Left arm motor drift ?> 0 = No drift for 10 seconds 5B: Right arm motor drift ?> 1 = Drift, but doesn't hit bed 6A: Left leg motor drift ?> 0 = No drift for 5 seconds 6B: Right leg motor drift ?> 1 = Drift, but doesn't hit bed 7: Limb Ataxia ?> 2 = Ataxia in 2 Limbs 8: Sensation ?> 1 = Mild-moderate loss: less sharp/more dull 9: Language/aphasia ?> 1 = Mild-moderate aphasia: some obvious changes, without significant limitation 10: Dysarthria ?> 0 = Normal 11: Extinction/inattention ?> 0 = No abnormality As he will with the symptoms this morning he is clearly not a tPA candidate. CT scan does not show acute findings. Patient will need to be admitted for further evaluation and workup. Discharge Plan Departure Patient Disposition: Admitted As Inpatient Clinical Impression: Stroke Qualifiers: CVA mechanism: unspecified Qualified Code(s): I63.9 - Cerebral infarction, unspecified Altered mental status Qualifiers: Altered mental status type: unspecified Qualified Code(s): R41.82 - Altered mental status, unspecified Discharge Date/Time: 05/13/20 22:29 Referrals: Martín West MD [Primary Care Provider] - Admit Date/Time: 05/13/20 22:22 Admit Provider: Kamran Wang
[2020-05-13 17:59] LABS: Add Manual Diff / Slide Review NO; Basophils Absolute Auto 0 /uL (0-100); Basophils Percent Auto 0.7 % (0-2); Eosinophils Absolute Auto 100 /uL (0-450); Eosinophils Percent Auto 1.2 % (2-4); Hematocrit 40.2 % (41-53); Lymphocytes Absolute Auto 800 /uL (1100-4500); Mean Corpuscular HGB Conc 34.8 % (30-36); Mean Corpuscular Hemoglobin 29.7 PG (26-34); Mean Corpuscular Volume 85.3 fL (80-100); Monocytes Absolute Auto 500 /uL (0-900); Monocytes Percent Auto 6.9 % (3-14); Neutrophils Absolute Auto 5600 /uL (1500-7000); Neutrophils Percent Auto 80.2 % (50-75); Platelet Count 214 X10^3/uL (150-400); Red Blood Cell Count 4.71 X10^6/uL (4.5-5.9); Red Cell Distribution Width 14.4 % (11.6-14.8)
[2020-05-13] MEDS: SODIUM CHLORIDE 0.9% 1,000 ML 1000 ML IV (18:00)
[2020-05-13 18:08] LABS: INR 1.1 (0.9-1.3); Prothrombin Time 12.1 SECONDS (10.1-12.7)
[2020-05-13 18:12] LABS: Ammonia (NH3) < 9 umol/L (9-30)
[2020-05-13 18:13] LABS: Alanine Aminotransferase 38 IU/L (<50); Albumin 3.8 g/dL (3.5-5.0); Albumin Globulin Ratio 1.4 (1.0-2.8); Alkaline Phosphatase 78 U/L (38-126); Aspartate Aminotransferase 29 IU/L (17-59); BUN Creatinine Ratio 24.6 (6-22); Bilirubin Total 0.6 mg/dL (0.2-1.3); Blood Urea Nitrogen 15 mg/dL (9-20); Calcium 9.6 mg/dL (8.4-10.2); Carbon Dioxide 28 mmol/L (22-32); Chloride 104 mmol/L (98-107); Estimated Glomerular Filt Rate > 60.0 mL/min (>60); Globulin 2.8 g/dL (1.7-4.1); Glucose 150 mg/dL (80-110); HEMOLYSIS < 15 (0-50); Lactate (Lactic Acid) 1.3 mmol/L (0.7-2.1); Potassium 2.8 mmol/L (3.4-5.1); Sodium 139 mmol/L (137-145); Total Protein 6.6 g/dL (6.3-8.2)
[2020-05-13 18:29] LABS: Prolactin 13.8 ng/mL (3.7-17.9)
--- NOTE | 2020-05-13 19:35 | PC.NURSE ---
Assumed care of pt. Report received from GEMINI Vieira. Pt resting in bed. family at bedside.
--- NOTE | 2020-05-13 20:30 | PC.NURSE ---
RAPID OUTSOLE STITCHER/STAFF NURSE ICU RESOURCE TEAM Note: Pt. Attempted an ambulation trial to the bathroom with FWW and gait belt. He was very unsteady. Pt. did not complained of any pain. O2 stats at 97% RA. and Pulse of 96. wc was provided. Pt. was wheeled to the bathroom. Urine collected and sent down. Pt. in room with call light in reach. RN notified.
[2020-05-13 20:32] LABS: Bacteria Urine None Seen; RBC Urine None Seen (0-5/HPF)
[2020-05-13 20:34] LABS: Appearance Urine UA CLEAR; Bilirubin Urine UA NEGATIVE (NEGATIVE); Color Urine UA YELLOW; Glucose Urine UA NEGATIVE (Negative); Ketones Urine UA NEGATIVE (NEGATIVE); Leukocyte Esterase Urine UA NEGATIVE (NEGATIVE); Nitrite Urine UA NEGATIVE (Negative); Occult Blood Urine UA NEGATIVE (Negative); Protein Urine UA TRACE (Negative); Specific Gravity Urine UA 1.015 (1.000-1.035); Urobilinogen Urine UA 0.2 E.U./dL (0.2)
[2020-05-13 20:48] LABS: Culture Indicated Urine Cult Not Indicated; Mucus Urine 2+ (Negative); Squamous Epithelial Cell Urine 0-1 /HPF (0-5/HPF); WBC Urine 0-1/HPF (0-5/HPF)
[2020-05-13] MEDS: SODIUM CHLORIDE 0.9% 1,000 ML 150 ML IV (21:07)
[2020-05-13 22:57] LABS: Magnesium 1.8 mg/dL (1.6-2.3)
[2020-05-13 23:07] LABS: Prothrombin Time 11.9 SECONDS (10.1-12.7)
[2020-05-13 23:17] LABS: PTT Partial Thromboplastin Tim 32 SECONDS (26.4-36.2)
--- NOTE | 2020-05-13 23:25 | PC.NURSE ---
Admit Note- Patient arrived to room via stretcher from ER at [id number]. Slider board used to transfer patient to bed. staying night in room, made up the side bed for sleep. IV dressing changed and NS started at 75cc/hr. Safety measures in place. Bed alarm activated. Will continue to monitor.
[2020-05-14] VITALS (7 sets, daily range): BP systolic 146–173; BP diastolic 79–103; PULSE 18–93; RESP 16–20; TEMP 36.4–36.8; O2SAT 95–99; BMI 41.3; BMI 30.3
--- NOTE | 2020-05-14 01:28 | P.HP_ITS ---
History of Present Illness History of Present Illness Date Patient Seen: 05/14/20 Time Patient Seen: 00:30 Chief complaint: Abnormal behavior x2 days Narrative: Mr. Carlos Soria is a 79-year-old male with a past medical history significant for hypertension, heart disease status post heart valve replacement, non insulin-dependent diabetes, colon cancer status post colon resection and gout who presents to the ER via EMS with altered mental status. The patient is unable to provide information due to the density of his neurological injury, information is obtained from the patient's at bedside and the medical record. Per the patient's the patient was in his usual state health last night prior to going to bed. Upon waking today she describes as being very groggy and primarily nonverbal. She states the patient finally got up to the bathroom he was ambulatory without significant ataxia however upon returning from the bathroom patient presented with marked deficits noted by the caregiver that had since arrived who called EMS. The states the patient was trying to talk and was nonsensical. She states he was getting more more frustrated not being able to communicate. Prior to these events the patient had been receiving physical therapy through cardiac rehab on ongoing basis. He had over the last 1-2 months developed a intermittently shuffling gait and would ambulate with a cane and sustained falls recently. Per his he had not complained of any recent fevers or chills and he has had no known COVID-19 exposures. He has not related any complaints of headaches, nasal congestion or sore throat. He has reported no chest pain or palpitations or shortness of breath cough or wheezing. He has had no recent abdominal pain, nausea vomiting. He has had no diarrhea or constipation reported no urinary difficulties. On evaluation directly with the patient he nods inconsistently yes or no to questions but denies complaints of pain or headache at the time of encounter. Upon arrival to the ER the patient is afebrile with a temperature 98.7?, heart rate of 79, blood pressure 160/79, respirations of 15 saturating 95% on room air. CT of the head is obtained which finds no acute intracranial pathology with notation of no significant changes from prior exam. Chest x-ray finds cardiomyopathy with mild pulmonary vascular congestion. On laboratory analysis the patient has white count of 7.0, hemoglobin of 14.0, hematocrit of 40.3 and platelets of 214. On electrolytes he has a sodium 139 a potassium of 2.8. His B UN is 15 and creatinine 0.61. His nonfasting glucose is 150. Liver functions are all within normal limits and has an ammonia of less than 9. His albumin of 3.8. Lactic acid is 1.3. The patient is admitted to the medicine service for CVA with his last known normal being approximately 24 hours ago. Patient History Medical History BPH (benign prostatic hyperplasia) (Acute) Colon cancer (Acute) Coronary artery disease (Acute) Diabetes (Acute) Gout (Acute) Hypertension (Acute) Surgical History Heart valve replaced (Acute) History of appendectomy (Acute) History of colon surgery (Acute) Family & Social History Social History: lives independently Yes Safety & Behavioral: Feels Safe in Current Yes Environment Been Physically Hurt or No Threatened By a Person Tobacco & Substance use: Smoking Status Former smoker alcohol intake frequency holiday/special occasion Substance Use Type does not use Meds Home Medications and Allergies Home Medications Medication Instructions Recorded Confirmed Type allopurinol 300 mg tablet 300 mg PO DAILY 04/03/19 09/13/19 History amlodipine 5 mg tablet 5 mg PO DAILY 04/03/19 09/13/19 History aspirin 81 mg tablet,delayed 81 mg PO DAILY 04/03/19 09/13/19 History release escitalopram oxalate 10 mg tablet 10 mg PO DAILY 04/03/19 09/13/19 History losartan-hydrochlorothiazide 1 tab PO DAILY 04/03/19 09/13/19 History metformin 500 mg tablet 500 mg PO BID 04/03/19 09/13/19 History nwmommuh-gse-sbfry acid 300 1 tab PO DAILY 04/03/19 09/13/19 History mcg-lycopene 600 mcg-lutein 300 mcg tablet nebivolol 5 mg tablet 5 mg PO DAILY 04/03/19 09/13/19 History nifedipine 30 mg tablet,extended 30 mg PO DAILY 04/03/19 09/13/19 History release sildenafil 100 mg tablet 100 mg PO DAILY PRN 04/03/19 09/13/19 History tamsulosin 0.4 mg capsule 0.4 mg PO DAILY 04/03/19 09/13/19 History docusate sodium [Stool Softener] 100 mg PO DAILY 09/13/19 09/13/19 History finasteride 5 mg PO DAILY 09/13/19 09/13/19 History ondansetron 4 mg PO Q8H PRN #10 tab 04/03/20 Rx Allergies Allergy/AdvReac Type Severity Reaction Status Date / Time No Known Drug Allergies Allergy Verified 09/13/19 15:14 Exam Vital Signs (past 8 hours): - 05/13/20 17:30 05/13/20 18:00 05/13/20 18:30 Temperature Pulse Rate 82 80 76 Respiratory Rate 21 20 20 Blood Pressure 154/74 H Pulse Oximetry 94 97 94 05/13/20 19:00 05/13/20 19:30 05/13/20 20:09 Temperature Pulse Rate 75 76 80 Respiratory Rate 18 21 14 Blood Pressure Pulse Oximetry 96 95 05/13/20 20:10 05/13/20 20:30 05/13/20 21:00 Temperature Pulse Rate 78 76 75 Respiratory Rate 14 22 20 Blood Pressure 192/99 H 175/94 H 171/93 H Pulse Oximetry 97 96 96 05/13/20 21:30 05/13/20 21:31 05/13/20 22:00 Temperature Pulse Rate 87 88 73 Respiratory Rate 24 28 H 18 Blood Pressure 176/123 H 181/101 H Pulse Oximetry 97 97 05/13/20 22:45 05/14/20 00:15 Temperature 97.5 F L 97.8 F Pulse Rate 75 18 L Respiratory Rate 18 18 Blood Pressure 187/86 H 166/86 H Pulse Oximetry 96 Oxygen Delivery Method Room Air Oxygen Flow Rate 0 Objective Labs Result Diagrams: 05/13/20 17:45 05/13/20 17:45 Labs: Laboratory Results - last 24 hr 05/13/20 05/13/20 05/13/20 17:45 17:45 17:45 WBC 7.0 RBC 4.71 Hgb 14.0 Hct 40.2 L MCV 85.3 MCH 29.7 MCHC 34.8 RDW 14.4 Plt Count 214 Neut % (Auto) 80.2 H Lymph % (Auto) 11.0 L Alexander % (Auto) 6.9 Eos % (Auto) 1.2 L Baso % (Auto) 0.7 Neut # (Auto) 5600 Lymph # (Auto) 800 L Alexander # (Auto) 500 Eos # (Auto) 100 Baso # (Auto) 0 PT 12.1 INR 1.1 APTT Sodium 139 Potassium 2.8 L Chloride 104 Carbon Dioxide 28 BUN 15 Creatinine 0.61 L Estimated GFR > 60.0 BUN/Creatinine Ratio 24.6 H Glucose 150 H Lactate Calcium 9.6 Magnesium Total Bilirubin 0.6 AST 29 ALT 38 Alkaline Phosphatase 78 Ammonia Troponin I Total Protein 6.6 Albumin 3.8 Globulin 2.8 Albumin/Globulin Ratio 1.4 Prolactin 13.8 Urine Color Urine Appearance Urine pH Ur Specific [place] Urine Protein Urine Glucose (UA) Urine Ketones Urine Occult Blood Urine Nitrate Urine Bilirubin Urine Urobilinogen Ur Leukocyte Esterase Urine RBC Urine WBC Ur Squamous Epith Cells Urine Bacteria Urine Mucus Ur Culture Indicated? 05/13/20 05/13/20 05/13/20 17:45 17:45 17:45 WBC RBC Hgb Hct MCV MCH MCHC RDW Plt Count Neut % (Auto) Lymph % (Auto) Alexander % (Auto) Eos % (Auto) Baso % (Auto) Neut # (Auto) Lymph # (Auto) Alexander # (Auto) Eos # (Auto) Baso # (Auto) PT INR APTT Sodium Potassium Chloride Carbon Dioxide BUN Creatinine Estimated GFR BUN/Creatinine Ratio Glucose Lactate 1.3 Calcium Magnesium 1.8 Total Bilirubin AST ALT Alkaline Phosphatase Ammonia < 9 L Troponin I Total Protein Albumin Globulin Albumin/Globulin Ratio Prolactin Urine Color Urine Appearance Urine pH Ur Specific [place] Urine Protein Urine Glucose (UA) Urine Ketones Urine Occult Blood Urine Nitrate Urine Bilirubin Urine Urobilinogen Ur Leukocyte Esterase Urine RBC Urine WBC Ur Squamous Epith Cells Urine Bacteria Urine Mucus Ur Culture Indicated? 05/13/20 05/13/20 05/13/20 17:45 20:10 22:55 WBC RBC Hgb Hct MCV MCH MCHC RDW Plt Count Neut % (Auto) Lymph % (Auto) Alexander % (Auto) Eos % (Auto) Baso % (Auto) Neut # (Auto) Lymph # (Auto) Alexander # (Auto) Eos # (Auto) Baso # (Auto) PT 11.9 INR 1.0 APTT Sodium Potassium Chloride Carbon Dioxide BUN Creatinine Estimated GFR BUN/Creatinine Ratio Glucose Lactate Calcium Magnesium Total Bilirubin AST ALT Alkaline Phosphatase Ammonia Troponin I 0.020 Total Protein Albumin Globulin Albumin/Globulin Ratio Prolactin Urine Color Yellow Urine Appearance Clear Urine pH 6.0 Ur Specific [place] 1.015 Urine Protein Trace H Urine Glucose (UA) Negative Urine Ketones Negative Urine Occult Blood Negative Urine Nitrate Negative Urine Bilirubin Negative Urine Urobilinogen 0.2 Ur Leukocyte Esterase Negative Urine RBC None seen Urine WBC 0-1/hpf Ur Squamous Epith Cells 0-1 /hpf Urine Bacteria None seen Urine Mucus 2+ H Ur Culture Indicated? Cult not indicated 05/13/20 22:55 WBC RBC Hgb Hct MCV MCH MCHC RDW Plt Count Neut % (Auto) Lymph % (Auto) Alexander % (Auto) Eos % (Auto) Baso % (Auto) Neut # (Auto) Lymph # (Auto) Alexander # (Auto) Eos # (Auto) Baso # (Auto) PT INR APTT 32 Sodium Potassium Chloride Carbon Dioxide BUN Creatinine Estimated GFR BUN/Creatinine Ratio Glucose Lactate Calcium Magnesium Total Bilirubin AST ALT Alkaline Phosphatase Ammonia Troponin I Total Protein Albumin Globulin Albumin/Globulin Ratio Prolactin Urine Color Urine Appearance Urine pH Ur Specific [place] Urine Protein Urine Glucose (UA) Urine Ketones Urine Occult Blood Urine Nitrate Urine Bilirubin Urine Urobilinogen Ur Leukocyte Esterase Urine RBC Urine WBC Ur Squamous Epith Cells Urine Bacteria Urine Mucus Ur Culture Indicated? Assessment & Plan Assessment & Plan narrative: This is a 79-year-old male patient with a onset of altered mental status upon waking in the morning that progressed to overt right- sided hemiparesis and altered mental status with dense aphasia. 1. CVA with right-sided weakness altered mental status and cognitive impairment. Present on admission, active. -the patient was his usual state health until waking this morning with reported grogginess and developing right-sided hemiparesis with facial droop, dysarthria and aphasia, NIH score is 15. 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 -CT of the head reveals no acute intracranial processes and reportedly has no significant changes from prior exam. -the patient has had open-heart surgery for heart valve replacement and as such is not a candidate for MRI. -patient is not presently on lipid-lowering medication ordered atorvastatin 20 mg daily. -will continue home regimen of aspirin 81 mg daily and lab Plavix 75 mg daily. -will obtain an updated CT angiogram of the head. -requested PT and OT to consult evaluate and treat. -requested speech therapy to consult evaluate and treat. -will obtain hemoglobin A1c, lipid panel and TSH. 2. Sbo-bevfozg-oiyvqlmni type 2 diabetes, present on admission, active -patient blood sugar on admission is 150 mg per dL -patient has a home regimen of metformin 500 mg twice daily. -ordered fingerstick blood sugars every 6 hours as the patient is NPO with correctional insulin low-dose range. -will obtain hemoglobin A1c. 3. Essential hypertension, chronic, active. -the patient blood pressure on admission is 160/79. -will hold the patient's routine home medications of amlodipine, losartan hydrochlorothiazide nebivolol and nifedipine and allow for permissive hypertension. -will closely monitor blood pressure and restart medications as needed. 4. Coronary artery disease, chronic, stable -chest x-ray reveals cardiomyopathy with mild pulmonary vascular congestion. Per the patient's he has had no recent complaints of chest pain or shortness of breath. -patient is status post sternotomy with heart valve replacement of unknown valve. -will obtain a 12 lead EKG and a troponin level. 5. Benign prostatic hypertrophy, chronic, stable. -will continue home regimen of finasteride and tamsulosin when taking p.o. VTE prophylaxis: Bilateral SCDs, enoxaparin IV fluid: 75 cc/hour Diet: NPO Code status: The patient has no advanced directive and is unable to participate in discussion regarding code status. The patient's is next scan at bedside and in direct discussion this time the patient will be made FULL CODE. The patient's is next of kin and emergency contact. The patient's daughter, Xiomara Bynum, is designated as primary contact. The patient is admitted to the hospital due to the severity of his neurological deficits requiring ongoing monitoring and evaluation. The patient is admitted as an inpatient with expected length of stay to be greater than 2 midnights. Scores NIHSS Level of Conciousness: Not alert, but arousable by minor stim to obey, answer or respond Ask month/age: Answers neither question correctly, aphasic, stuporous, coma Open/close eyes, close hand: Performs both tasks correctly Best gaze horizontal: Normal Visual singletary: No visual loss Facial palsy: Partial paralysis, total or near total paralysis of lower face Left arm drift: No drift for full 10 sec Right arm drift: Drifts down, not to bed Left leg drift: No drift for full 5 sec Right leg drift: Drifts down, not to bed Limb ataxia: Present in two limbs Sensory on face/arms/legs: Mild to moderate sensory loss, can tell touch Best language: Severe aphasia, not much is understood, fragmented Dysarthria: Severe, unintelligible Extinction or inattention: Visual, tactile, auditory, spacial or personal inattention to stimuli Total NIH Stroke scale score: 15
[2020-05-14] MEDS: POTASSIUM CHLORIDE IV (02:18)
[2020-05-14] MEDS: SODIUM CHLORIDE 0.9% IV (02:18)
--- NOTE | 2020-05-14 03:41 | PC.NURSE ---
Addendum entered by Jered Ro R.N. 05/14/20 03:47: Spouse notes that decision making will be discussed with daughter Xiomara and that she will most likely be designated DPO. Also noted a packaging sales was consulted for advanced directive planning, could not remember what was decided. is suffering from Alzheimer disease. Original Note: Admission done via pt's . Spouse states pt was normal upon retiring to bed on 05/12, change in behavior was noted the next morning by pt's caregiver. not aware of medications takes, will try to get info tomorrow. Pt NIH = 17 - see chart. Pt will respond to questions w/word salad - infrequently answers questions w/a yes or no. 2 Q neuro checks remain consistent. Swallow eval failed due to pt not being able to follow directions. Placed on NPO status. . present at bedside
[2020-05-14 05:24] LABS: Add Manual Diff / Slide Review NO; Basophils Absolute Auto 0 /uL (0-100); Basophils Percent Auto 0.6 % (0-2); Eosinophils Absolute Auto 100 /uL (0-450); Eosinophils Percent Auto 1.9 % (2-4); Hematocrit 40.7 % (41-53); Hemoglobin 14.3 g/dL (13.5-17.5); Lymphocytes Absolute Auto 1200 /uL (1100-4500); Lymphocytes Percent Auto 16.8 % (25-40); Mean Corpuscular Hemoglobin 30.8 PG (26-34); Mean Corpuscular Volume 87.9 fL (80-100); Monocytes Absolute Auto 600 /uL (0-900); Monocytes Percent Auto 8.6 % (3-14); Neutrophils Absolute Auto 5200 /uL (1500-7000); Neutrophils Percent Auto 72.1 % (50-75); Platelet Count 223 X10^3/uL (150-400); Red Blood Cell Count 4.63 X10^6/uL (4.5-5.9); Red Cell Distribution Width 14.2 % (11.6-14.8); White Blood Cell Count 7.2 X10^3/uL (4.5-11.0)
[2020-05-14 05:30] LABS: Hemoglobin A1C% w Est Avg Glu 7.5 % (4.0-6.0)
[2020-05-14 05:32] LABS: BUN Creatinine Ratio 16.7 (6-22); Blood Urea Nitrogen 11 mg/dL (9-20); Calcium 9.4 mg/dL (8.4-10.2); Carbon Dioxide 31 mmol/L (22-32); Chloride 106 mmol/L (98-107); Cholesterol 203 mg/dL (140-199); Estimated Glomerular Filt Rate > 60.0 mL/min (>60); Glucose 116 mg/dL (80-110); HDL Cholesterol 33 mg/dL (40-60); HEMOLYSIS < 15 (0-50); LDL Cholesterol Calculated 119 mg/dL (<100); Potassium 3.7 mmol/L (3.4-5.1); Sodium 141 mmol/L (137-145); Triglycerides 256 mg/dL (35-150)
[2020-05-14 06:03] LABS: Thyroid Stimulating Hormone 1.15 uIU/mL (0.47-4.68)
--- NOTE | 2020-05-14 08:52 | DI.CT.S_ITS ---
PROCEDURE: CT ANGIO HEAD INDICATIONS: CVA TECHNIQUE: Precontrast 4.5 mm thick angled axial sections acquired from the foramen magnum to the vertex. After the administration of intravenous contrast, 1 mm thick sections acquired through the [place] of [place]. Postcontrast 4.5 mm thick sections then re-acquired from the foramen magnum to the vertex. 10 mm thick gqlslut-emhkcxbmn-tmvemlaywk (MIP) reformats were acquired of the central intracranial vasculature. For radiation dose reduction, the following was used: automated exposure control, adjustment of mA and/or kV according to patient size. COMPARISON: [facility], MR, MR ANGIO NECK W CON, 12/15/2019, 15:43. [facility], MR, BRAIN WITHOUT CONTRAST, 09/06/2014, 16:14. [facility], MR, BRAIN (IAC) W&WO CONTRAST, 05/11/2013, 9:20. FINDINGS: Image quality: Excellent. Anterior circulation: The anterior circulation, including the anterior and middle cerebral arteries, as well as internal carotid arteries demonstrates no areas of hemodynamically significant stenosis, vascular occlusion or aneurysmal dilation. 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 Posterior circulation: The posterior circulation demonstrates vertebral artery co-dominance. Prominent vertebral artery calcifications are present demonstrating diffuse areas of narrowing ranging from 50-70%. There is a focus of high-grade stenosis at the distal right vertebral artery. Basilar artery and posterior cerebral arteries demonstrate no areas of hemodynamically significant stenosis, vascular occlusion or aneurysmal dilation. Posterior communicating arteries are within normal limits. The ventricular system and cortical sulci demonstrate atrophy, consistent for the patient's stated age. There are areas of hypodensity within the periventricular and subcortical white matter. There is no acute intra-or extra axial fluid collection. No acute hemorrhage, mass lesion or midline shift. Brainstem is unremarkable. Globes are symmetrical. Sinuses are aerated. Osseous structures are intact. IMPRESSION: 1. No acute intracranial process. 2. Moderate atrophy and chronic microvascular ischemic changes. 3. Heavily calcified vertebral arteries as above with high-grade stenosis at the distal right vertebral artery. Dictated by: Chelsy Fisher M.D. on 05/14/2020 at 11:36 Approved by: Chelsy Fisher M.D. on 05/14/2020 at 11:47
[2020-05-14] MEDS: ENOXAPARIN 40 MG/0.4 ML SYRINGE SUBCUT (08:56)
[2020-05-14] MEDS: ASPIRIN EC 81 MG TABLET PO (09:24)
[2020-05-14] MEDS: CLOPIDOGREL 75 MG TABLET PO (09:25)
--- NOTE | 2020-05-14 12:30 | DI.ECHO.S_ITS ---
Echocardiogram Report + + :Name: RAE HOLGUIN Study Date: 05/14/2020 Height: 60 in : :[facility] Weight: 220 lb : : Gender: Male BSA: 1.9 m2 : :: 1940 Age: 79 yrs BP: 166/86 mmHg: :Reason For Study: CVA : :Ordering Physician: SAMIR, : :HOSPITALIST Performed By: Mary Trejo : :Referring: ARUN FARFAN : + + Interpretation Summary The left ventricle is normal in size. The ejection fraction is estimated to be 35-40%. Compared to the prior exam, the left ventricular function is reduced. There is mild to moderate global hypokinesis of the left ventricle. The right ventricle is normal size. Right ventricular systolic function is mildly reduced. There is a bioprosthetic aortic valve. The peak aortic velocity is 2.67 m/sec. The aortic valve mean gradient is 17 mmHg. The peak aortic velocity on the previous exam was 3.34 m/sec.In apical views, there appears to be small, calcified echogenic mobile structure seen which likely attached to one of the aortic cusp. This was seen in April 2016 as well. There is no bioprosthetic aortic valve dehiscence or significant aortic regurgitation or flow obstruction. In view of CVA, consider YULI for further evaluation of aortic valve. The ascending aorta is mildly enlarged. 4.0 cm in diameter. In previous study it was 3.5 cm. The aortic arch is mildly enlarged. Procedure: A two-dimensional transthoracic echocardiogram with color flow and Doppler was performed. Images from the parasternal window were difficult to obtain and are suboptimal in quality. Most of the acoustic windows were suboptimal, but the best imaging was obtained from the apical window. Comparison is made with the echocardiogram of 05/20/2016. The heart rate ranged between 71-85 bpm during the study. The patient was in normal sinus rhythm during the exam. Left Ventricle: The left ventricle is normal in size. There is mild concentric left ventricular hypertrophy. There is no thrombus. The ejection fraction is estimated to be 35-40%. Compared to the prior exam, the left ventricular function is reduced. There is mild to moderate global hypokinesis of the left ventricle. Diastolic parameters suggest a relaxation abnormality of the left ventricle, consistent with probable normal filling pressures. Right Ventricle: The right ventricle is normal size. Right ventricular systolic function is mildly reduced. Atria: The left atrium is moderately dilated. The left atrium has remained unchanged in size since the prior echo exam. Right atrial size is normal. The right atrium has mildly decreased in size since the prior echo exam. There is no Doppler evidence for an interatrial shunt. Mitral Valve: The mitral valve leaflets are mildly calcified. There is mild mitral annular calcification. There is trace mitral regurgitation. Aortic Valve: There is a bioprosthetic aortic valve. The prosthetic aortic valve is well-seated. The aortic valve mean gradient is 17 mmHg. The peak aortic velocity is 2.67 m/sec. The peak aortic velocity on the previous exam was 3.34 m/sec. There is trace aortic regurgitation. Tricuspid Valve: The tricuspid valve is normal. The right ventricular systolic pressure is estimated to be at least 24 mmHg based on an estimated right atrial pressure of 3 mm Hg. There is mild tricuspid regurgitation. Pulmonic Valve: The pulmonic valve is not well visualized. There is no pulmonic valvular regurgitation. Great Vessels: The aortic root is not well visualized. The ascending aorta is mildly enlarged. The aortic arch is mildly enlarged. The IVC is of normal diameter and collapses greater than 50% with a sniff. This suggests a low right atrial pressure of 3 mm Hg. Pericardium/ Pleura There is no pericardial effusion. There is no pleural effusion. MMode/2D Measurements & Calculations LVIDd: 5.2 cm LVOT diam: 2.0 cm LVIDs: 4.3 cm asc Aorta Diam: 4.0 cm FS: 16.3 % Ao Arch Diam (Prox Trans): 3.7 cm IVSd: 1.2 cm LVPWd: 1.3 cm LV ya. diameter/BSA (cm/m^2): 2.7 LV sys. diameter/BSA (cm/m^2): 2.2 LA A2 area: 24.7 cm2 RA long axis: 5.7 cm LA A4 area: 20.1 cm2 RA area: 16.2 cm2 LA length (vol): 5.7 cm RA vol: 38.9 ml LA vol: 74.3 ml RA : 20.0 ml/m2 LA vol index: 38.2 ml/m2 IVC diam: 1.5 cm RVD1 (basal): 3.4 cm TAPSE: 1.4 cm Doppler Measurements & Calculations Ao V2 max: 267.1 cm/sec LVOT Max Enrique: 84.5 cm/sec Ao V2 mean: 192.4 cm/sec LV V1 max P.9 mmHg Ao max P.5 mmHg LV V1 VTI: 15.3 cm Ao mean P.0 mmHg GODWIN(I,D): 0.95 cm2 Ao V2 VTI: 49.4 cm GODWIN(V,D): 0.96 cm2 sev ratio: 0.31 GODWIN indexed to BSA (cm^2/m^2): 0.49 MV E max enrique: 53.8 cm/sec TR max enrique: 228.2 cm/sec MV A max enrique: 112.0 cm/sec TR max P.8 mmHg MV E/A: 0.48 PA V2 max: 64.6 cm/sec Med Peak E' Enrique: 3.7 cm/sec PA V2 mean: 43.6 cm/sec E/E' med: 14.5 PA mean P.90 mmHg Lat Peak E' Enrique: 5.9 cm/sec PA pr(Accel): 48.2 mmHg E/E' lat: 9.1 E/e' average: 11.8 MV dec time: 0.18 sec SV(LVOT): 46.7 ml Reading Physician:03:11 PM
[2020-05-14] MEDS: SODIUM CHLORIDE 0.9% 1,000 ML 75 ML IV (13:21)
--- NOTE | 2020-05-14 13:25 | CM.DANOTE ---
Addendum entered by Alessandra Valdovinos R.N. 05/14/20 13:35: continue note below: talk to daughter to explain fathers health status and the need for Inpatient rehab. Cm department will follow up with Dr. Tee to solidify D/C plan... and follow up with [facility]. Alessandra Valdovinos RN Original Note: DCP Assessment: EMR reviewed: Patient is a 79 yr old male who was admitted for CVA. CM/RN met with patient at the bedside and explained role. patient was not able to communicate back with CM/RN patient feng slurred speech with slight Rt sided facial droop. patients was at bedside and patients daughter was on the phone. Cm/RN discussed Inpatient Rehab as a D/C option and patients and daughter agreed for CM to contact [facility] to have them review patients clinicals for possible admission. CM/RN sent clinicals and Cm department will check up on admission status tomorrow. patients daughter stated that they had planned on moving her parents to [facility] on May 27 and wants to know if her father will be able to travel then. Cm/Rn spoke to Dr. Tee and she stated she was going to have a conversation with the daughter to get
--- NOTE | 2020-05-14 13:58 | OT.IP.EVAL ---
Current Diagnoses Cerebral infarction, unspecified (05/13/20) Past Medical History (Last Reviewed 05/13/20 @ 19:56 by Mary Kumar MD) BPH (benign prostatic hyperplasia) (Acute) Colon cancer (Acute) Coronary artery disease (Acute) Diabetes (Acute) Gout (Acute) Hypertension (Acute) Surgical History (Last Reviewed 05/13/20 @ 19:56 by Mary Kumar MD) Heart valve replaced (Acute) History of appendectomy (Acute) History of colon surgery (Acute) Occupational Therapy Inpatient Evaluation/Re-Eval M1 PT/OT-IP Prior Functional Status Start: 05/14/20 16:21 Freq: NEEDED Status: Active Protocol: Document 05/14/20 13:37 [facility] (Rec: 05/14/20 16:53 [facility] [id number]) Medical Review Prior Functional Status Medical History Reviewed Yes Communication Pt PT eval-Per outpatient PT notes, pt is an effective verbal communicator at baseline Mobility and Gait Per PT eval;-Pt has a current outpatient PT plan of care focused on balance and gait. PT notes indicate poorly- coordinated gait and momentum almost out of control as recently as 05/10/20. His daughter, Xiomara, was visiting one month ago and states the pt could walk 5-6 feet with the cane before reaching for a countertop or a wall. Activities of Daily Living and IADL's Pt has caregivers 7 days per week, 4 hours per day who assist with dressing and provide standby assist for showers. Pt often requires assist with toileting due to incontinence. Prior Functional Level (Other details) Pt has recent history of multiple falls. Social History Household Members spouse Living Arrangements House Number of Floors (Floors) One Floor Number of Stairs To Enter/Railing? 2 AISHA through the garage. Home Environment Standard Height Toilet,Walk in Shower Home Equipment Front Wheel Walker,Quad Cane, Shower Seat without Backrest Additional Social History Comment Pt lives with his , Sadie, who has Alzheimer's dementia. Their daughter, Xiomara, visited one month ago and is in the process of moving her parents to [place] to live with her. She was planning to charter a flight with a flight RN as soon as May 27. M2 OT-IP Current Condition Start: 05/14/20 16:21 Freq: Status: Active Protocol: Document 05/14/20 13:37 [facility] (Rec: 05/14/20 16:53 [facility] [id number]) Occupational Therapy Current Condition Current Condition Evaluation Date 05/14/20 Treatment Diagnosis Altered mental staus, s/p CVA with right weakness Diagnosis Onset Date 05/13/20 M3 OT- IP Subjective and Pain Start: 05/14/20 16:21 Freq: Status: Active Protocol: Document 05/14/20 13:37 [facility] (Rec: 05/14/20 16:53 [facility] [id number]) OT- Subjective Occupational Therapy Visit Type Type Initial Evaluation Visit Start Time 13:37 Visit Stop Time 13:58 Total Visit Minutes 21 Occupational Therapy Visit Comments Patient Comments Pt agreeable to try to get up. Nursing aid present to assist for mobility needs. Patient/Caregiver Goals To go home. OT Pain Assessment Pain When Pain Assessed At Rest Pain Present Pain Present Denied Pain M4 OT- IP ADL's Start: 05/14/20 16:21 Freq: Status: Active Protocol: Document 05/14/20 13:37 [facility] (Rec: 05/14/20 16:53 [facility] [id number]) OT [id number] Comments OT Self-Feeding Comments NOt at meal time, nursing aid states pt able to bring right hand to mouth. To further assess tomorrow. OT ADL-Grooming Comments OT Grooming Comments Not performed. OT ADL-Dressing General Eval Lower Body Dressing Ability Maximum Assistance Areas Needing Assistance Socks OT ADL-Toileting General Evaluation Toileting Ability Total Assistance Comments OT Toileting Comments Nursing just complete brief change and hygiene in the bed. OT ADL-Bathing Comments OT Bathing Comments NOt at this time. M5 OT- IP IADL's Start: 05/14/20 16:21 Freq: Status: Active Protocol: Document 05/14/20 13:37 [facility] (Rec: 05/14/20 16:53 [facility] [id number]) OT-Instrumental Activities of Daily Living Deficits IADL Deficits Identified Deficits Home Safety Awareness Awareness of Need for Assistance at Home Decreased Awareness Ability to Problem Solve Emergency Unable to Problem Solve Situations Medication Management Medication Management Caregiver Administers Money Management Money Management Caregiver Provides Assistance Meal Preparation Meal Preparation Caregiver Provides Assist Loadmaster Loadmaster Caregiver Provides Assist Driving Driving Caregiver Provides Assist M6 OT- IP Functional Cognition Start: 05/14/20 16:21 Freq: Status: Active Protocol: Document 05/14/20 13:37 [facility] (Rec: 05/14/20 16:53 [facility] [id number]) Cognitive Factors Limiting Selfcare Function Cognitive Ability Level of Alertness Alert,Confusional State Patient Orientation Name Ability to Follow Commands Able to Follow One Step Commands with Increased Time, Able to Follow One Step Commands with Repetition Safety Awareness Underestimates Need for Assistance Problem Solving Ability Unable to Identify Errors, Needs Assist to Identify Solutions Cognitive Comments Cognitive Assessment Comments Pt having difficulty to get his words out and not able to states body parts but able to accurately point which part was being touched. Pt has babbled speech and at times able to states a compete sentence,yes open the curtain more. Pt having difficulty with control and initiation for right side of his body. OT- Vision and Hearing OT- Vision Assessment Vision Assessment Comments Possible neglect on right UE. M7 OT- IP Mobility and Balance Start: 05/14/20 16:21 Freq: Status: Active Protocol: Document 05/14/20 13:37 [facility] (Rec: 05/14/20 16:53 [facility] [id number]) OT- Bed Mobility Assessment Rolling Type of Rolling Roll to Right Level of Assistance Maximum Assistance,1 Person Assistance Supine to Sit Supine to Sit Assist Maximum Assistance,1 Person Assistance Scooting Scooting to Edge of Bed Maximum Assistance,1 Person Assistance OT-Transfer Assessment Sit to and From Stand Sit to and from Stand Moderate Assistance,2 Person Assistance Transfers Transfer Ability Maximum Assistance,2 Person Assistance Technique Transfer Destination Bed,Chair Devices Transfer Assistive Devices Gait Belt,Front Wheeled Walker Comments Mobility Comments Pt having difficulty to coordinate use or RUE to help get from sidelying to sitting upright and needing MAX A to get upright. MAX A to help scoot right hip forwards. MODA X 2 to stand to FWW and needing assist to remind his to keep RLE activated and assist to help stabilize his RUE on the FWW. Pt having difficulty to coordinate his UE and LE movements together. Pt needing MAX to help move his RLE, assist for FWW management and balance. Overall MAX A X2 with FWW for transfer. OT- Gait Assessment Comments Gait Ability Comments Only transfer at this time. OT- Balance Assessment Sitting Balance and Reactions Static Sitting Balance Ability Poor Dynamic Sitting Balance Ability Poor Standing Balance and Reactions Static Standing Balance Ability Poor Dynamic Standing Balance Ability Poor Comments Other Balance Tests/Deviations/Treatment Pt leaning to the right when : sitting and not aware of midline. Able to do stretching to left side however still noted lean to the right afterwards. Pt has slight lateral tilt to the right. M8 OT- IP Objective Assessments Start: 05/14/20 16:21 Freq: Status: Active Protocol: Document 05/14/20 13:37 [facility] (Rec: 05/14/20 16:53 [facility] [id number]) OT Gross Range of Motion Upper Extremity Range of Motion Assessment Within Functional Limits OT Strength Comments Strength Comments LUE4+/5, RUE shoulder4-/5 to 4 /5 to left hand. OT- Coordination Assessment Upper Extremity OT-Muscle Tone Assessment Muscle Tone WNL Yes OT Sensation Assessment Location Foot Light Touch Intact/Normal M9 OT- IP Assessment and Plan Start: 05/14/20 16:21 Freq: Status: Active Protocol: Document 05/14/20 13:37 [facility] (Rec: 05/14/20 16:53 [facility] [id number]) OT Summary Assessment and Plan Potential Rehabilitation Potential Good Analytic Complexity at Evaluation Low Summary OT Impairments Balance,Coordination, Functional Cognition, Functional Mobility,Self- Feeding,Grooming,Dressing, Toileting,Bathing,Toilet Transfers,Shower Transfers, Activity Tolerance Progress Towards Goals Slow Progress due to Activity Tolerance,Slow Progress due to Cognition Assessment Summary Pt low complexity and here due to altered mental status and stroke like symptoms of slurred speech, decreased balance and right sided weakness. Pt may benefit from acute rehab as pt's current level far from his baseline. Therefore pending pt;s progress pt would benefit form acute rehab versus SNF. Goals Grooming Goal Independent Dressing Goal Minimal Assistance Toileting Goal Moderate Assistance Bathing Goal Moderate Assistance Toilet Transfer Goal Minimal Assistance Shower Transfer Goal Minimal Assistance Patient/Caregiver Education Goal Caregiver Independent Assisting Patient Days to Meet Goals 10 Frequency of Treatment Frequency Of Treatment Once a Day Treatment Plan OT Treatment Plan ADL Training,Functional Cognition Training,Functional Mobility,Neuromuscular Re- education,Patient/Family Education,Discharge Planning Other Treatment Recommendations and Next Self feeding and grooming. Treatment Focus Discharge Recommendations OT Discharge Recommendations SNF Rehab,Acute Rehab Other Discharge Recommendations Pending pt's progress and activity tolerance acute rehab versus SNF. Home Equipment Needs Defer to acute rehab versus SNF Transportation Needs at Discharge Wheelchair/Cabulance
--- NOTE | 2020-05-14 14:56 | PC.NURSE ---
Day shift note: Patient sitting up in chair, calm, pleasant and very cooperative. Continue with right sided weakness, upper and lower extremities, however improving, able to use urinal with minimal assistance, brushed own teeth with right hand, leaned over to kiss . Oriented to self, aware he is in hospital, however does not know place, situation, or time. On dysphagia diet, no coughing noted. IVF infusing, High risk precautions initiated, bed alarm active.
--- NOTE | 2020-05-14 15:40 | PT.IIE ---
Current Diagnoses Cerebral infarction, unspecified (05/13/20) Surgical History (Last Reviewed 05/13/20 @ 19:56 by Mary Kumar MD) Heart valve replaced (Acute) History of appendectomy (Acute) History of colon surgery (Acute) Medical History (Last Reviewed 05/13/20 @ 19:56 by Mary Kumar MD) BPH (benign prostatic hyperplasia) (Acute) Colon cancer (Acute) Coronary artery disease (Acute) Diabetes (Acute) Gout (Acute) Hypertension (Acute) Physical Therapy Inpatient Evaluation/Re-Eval M1 PT/OT-IP Prior Functional Status Start: 05/14/20 13:31 Freq: NEEDED Status: Active Protocol: Document 05/14/20 14:42 AW (Rec: 05/14/20 15:40 AW [id number]) Medical Review Prior Functional Status Medical History Reviewed Yes Communication Per outpatient PT notes, pt is an effective verbal communicator at baseline Mobility and Gait Pt has a current outpatient PT plan of care focused on balance and gait. PT notes indicate poorly-coordinated gait and momentum almost out of control as recently as . His daughter, Xiomara, was visiting one month ago and states the pt could walk 5-6 feet with the cane before reaching for a countertop or a wall. Activities of Daily Living and IADL's Pt has caregivers 7 days per week, 4 hours per day who assist with dressing and provide standby assist for showers. Pt often requires assist with toileting due to incontinence. Prior Functional Level (Other details) Pt has recent history of multiple falls. Social History Household Members spouse Living Arrangements House Number of Floors (Floors) One Floor Number of Stairs To Enter/Railing? 2 AISHA through the garage. Home Environment Standard Height Toilet,Walk in Shower Home Equipment Front Wheel Walker,Quad Cane, Shower Seat without Backrest Additional Social History Comment Pt lives with his , Sadie, who has Alzheimer's dementia. Their daughter, Xiomara, visited one month ago and is in the process of moving her parents to [place] to live with her. She was planning to charter a flight with a flight RN as soon as May 27. M2 PT-IP Current Condition Start: 05/14/20 13:31 Freq: NEEDED Status: Active Protocol: Document 05/14/20 14:42 AW (Rec: 05/14/20 15:40 AW [id number]) Physical Therapy Current Condition Current Condition Evaluation Date 05/14/20 Treatment Diagnosis CVA, hemiparesis, difficulty in walking Onset Date 05/13/20 Precautions Other Precautions high falls risk M3 PT-IP Subjective Start: 05/14/20 13:31 Freq: NEEDED Status: Active Protocol: Document 05/14/20 14:42 AW (Rec: 05/14/20 15:40 AW [id number]) Subjective Physical Therapy Visit Type Type Initial Evaluation Visit Start Time 14:13 Visit Stop Time 14:35 Total Visit Minutes 22 Physical Therapy Visit Comments Patient Comments Pt greeted this PT with garbled speech, intelligible ~ 50% of the time. Patient Goals Unable to state Therapy Pain Assessment Pain When Pain Assessed At Rest Pain Present Pain Present Unable to Respond FLACC Pain Scale Face Occasional grimace/frown Legs Normal position; relaxed Activity Squirming,shifting Cry No cry (awake or asleep) Consolability Reassurable with touch FLACC Total 3 M4 PT-IP Mobility and Gait Start: 05/14/20 13:31 Freq: NEEDED Status: Active Protocol: Document 05/14/20 14:42 AW (Rec: 05/14/20 15:40 AW [id number]) PT-Transfer Assessment Sit to and From Stand Sit to and from Stand Maximum Assistance,1 Person Assistance,Use of Upper Extremities Equipment Transfer Assistive Device Gait Belt,Front Wheeled Walker Transfers Transfer Destination Chair Transfer Technique pt ambulated with FWW max A x 1 Transfer Ability Level of Assist Maximum Assistance,1 Person Assistance,2 Person Assistance Comments Mobility Comments Pt was sitting up in the chair upon PT arrival. His speech was intelligible ~50% of the time. Pt was able to follow one-step directions for strength testing. He stood from the chair max A x 1 and used the FWW for support in standing. Rightward and posterior lean were significant, requiring assist to stay upright. Pt was initially able to advance the FWW but had significant difficulty advancing his right leg, requiring max assist x 1 and max cues for walker management. He was unable to keep his feet within the walker frame and required max assist and max verbal cues for safety. Pt ambulated ~15 feet in the room in this fashion. Upon return to the right side of the bed, PT asked pt to sit on the bed for assessment of bed mobility, but he was unable to follow directions, heading for the chair. Pt required max assist for positioning in front of the chair and max assist to sit due to poor control. Pt was repositioned on the chair with call light and all needs within reach, chair alarm on for safety. Gait Assessment Gait Gait Assistance Required: Maximum Assistance,1 Person Assist Distance (Feet) 15 Assistive Devices Assistive Device Gait Belt,Front Wheeled Walker Gait Deviations General Gait Pattern Ataxic,Decreased Stride Length ,Decreased Feet Clearance, Flexed Trunk,Lateral Trunk Lean,Step-to Gait Factors Limiting Gait Function Factors Limiting Gait Function Abnormal Tonal Influences, Decreased Activity Tolerance, Decreased Sensation,Decreased Strength,Difficulty Following Directions,Incoordination,Poor Balance,Poor Safety Awareness Comments Gait Comments See mobility comments for details. Stair Climbing Assessment Comments Stair Climbing Comments Not assessed. PT-Balance Assessment Sitting Balance and Reactions Static Sitting Balance Ability Good Dynamic Sitting Balance Ability Good Standing Balance and Reactions Static Standing Balance Ability Poor Dynamic Standing Balance Ability Poor Comments Other Balance Tests/Deviations/Treatment No lean noted while sitting on : the chair. M5 PT-IP Objective Assessments Start: 05/14/20 13:31 Freq: NEEDED Status: Active Protocol: Document 05/14/20 14:42 AW (Rec: 05/14/20 15:40 AW [id number]) Orientation Orientation/Cognition Level of Alertness Confusional State Orientation Name,Day of Week Language Function Ability Expressive Aphasia,Garbled Speech,Word Finding Difficulties Safety Awareness Decreased Safety Awareness Memory Description Short Term Impaired,Alf Impaired Comments Pt oriented to self and day of the week. When speech was intelligible, content was appropriate. Pt seems aware of his speech difficulty and expresses frustration with same. Gross Range of Motion Lower Extremity ROM Assessment Within Functional Limits Strength Lower Extremity Strength Assessment Right Impaired Hip 3+/5 Knee extension 4/5; flexion 4-/5 Ankle 4/5 Comments Strength Comments L LE grossly 4/5 Coordination Assessment Gross Coordination Gross Coordination Impaired Assessment Finger to Nose Test Minimal Impairment Pronation/Supination Test Minimal Impairment Coordination Comments Missed target on finger to nose with eyes closed ~3 cm with the R UE. Sensation Assessment Comments Sensation Comments Unable to assess due to communication difficulty Muscle Tone Muscle Tone WNL Yes M6 PT-IP Treatment Start: 05/14/20 13:31 Freq: NEEDED Status: Active Protocol: Document 05/14/20 14:42 AW (Rec: 05/14/20 15:40 AW [id number]) Physical Therapy Treatment Education Education Provided Safety Other Treatments Other Treatment Performed Provided education on role of PT, plan of care, safe use of FWW. M7 PT-IP Assessment and Plan Start: 05/14/20 13:31 Freq: NEEDED Status: Active Protocol: Document 05/14/20 14:42 AW (Rec: 05/14/20 15:40 AW [id number]) PT Summary Assessment and Plan Potential Rehabilitation Potential Fair Status of Condition at Evaluation Evolving Summary Impairments Strength,Balance,Coordination, Sensation,Tone,Cognition,Bed Mobility,Transfers,Gait, Activity Tolerance Assessment Summary Anjum is a 79 yo man admitted with stroke-like symptoms of right hemiparesis and slurred, garbled speech. He uses a quad cane for baseline mobility and has a current outpatient PT plan of care focused on balance and gait disturbance. A month ago, pt's daughter reports he was able to walk in increments of 5-6 feet while using his cane and countertops/mello for support. He has a caregiver 7 days/ week, 4 hours/day who assists with dressing, bathing, and toileting. On evaluation, pt presents with right LE hemiparesis and ataxic gait. Pt was unable to coordinate right LE advancement in gait, requiring max assist for weight shifting and limb advancement. Pt exhibited strong posterior and rightward lean in stance and during gait. PT was unable to assess bed mobility due to pt's intermittent difficulty following instructions. Pt will require acute rehab vs SNF rehab at discharge depending on progress and pt's ability to tolerate increased activity. Will continue to assess and refine discharge recommendation. Goals Bed Mobility Goal Minimal Assistance Transfer Goal Minimal Assistance,Front Wheeled Walker Gait Goal Minimal Assistance,Front Wheel Walker Gait Distance 50 Days to Meet Goals 10 Frequency of Treatment Frequency Of Treatment Twice a Day Treatment Plan Physical Therapy Treatment Plan Bed Mobility Training,Transfer Training,Gait Training, Therapeutic Exercise,Balance Retraining,Discharge Planning, Hot or Cold Pack,Neuromuscular Re-ed,Coordination Retraining Other Recommendations and Next Treatment assess bed mobility; transfers Focus ; standing with equal weightbearing; gait training with FWW Recommendations To Nursing Amount of Assist Needed 2 Person Assist Discharge Recommendations PT Discharge Recommendations SNF Rehab,Acute Rehab Other Discharge Recommendations acute vs SNF rehab Equipment Needed for Home Before defer to rehab setting Discharge Transportation Needs at Discharge Wheelchair/Cabulance
--- NOTE | 2020-05-14 17:40 | ST.IPIE ---
Visit Care Team Role Provider Type Martín West MD Primary Care Provider Physician Specialty: Family Practice Address: [address], [address], [place], [address] Email: Mary Kumar MD Emergency Provider Physician Specialty: Emergency Medicine Address: [address] [place] [address], [facility] Email: JONNIE Colindres Admit Provider Physician Attending Provider Specialty: Internal Medicine Address: [address] [place] [address], [facility] Email: [email or web address] Current Diagnoses Cerebral infarction, unspecified (05/13/20) Past Medical History (Last Reviewed 05/13/20 @ 19:56 by Mary Kumar MD) BPH (benign prostatic hyperplasia) (Acute Medical) Colon cancer (Acute Medical) Coronary artery disease (Acute Medical) Diabetes (Acute Medical) Gout (Acute Medical) Hypertension (Acute Medical) ST IP Initial Evaluation Report PAYMENT SPECIALIST Clinical Swallow Evaluation Start: 05/14/20 10:28 Freq: Status: Active Protocol: Document 05/14/20 10:29 VIRGIL (Rec: 05/14/20 10:29 [email or web address] [id number]) Clinical Swallow Evaluation Session Time Visit Start Time 08:40 Visit Stop Time 09:40 Total Visit Minutes 60 Referral Referring Physician JONNIE Colindres Reason for Referral CVA Setting Assessment Location Acute Care Visit Type Note Type Initial Evaluation Next Note Type Next Note Type Treatment Note Patient Information Identification Type Name,ID Card History Per H&P: This is a 79-year-old male patient with a onset of altered mental status upon waking in the morning that progressed to overt right- sided hemiparesis and altered mental status with dense aphasia. Subjective Observations The pt was resting in bed with his at bedside. The couple is familiar to this clinician from the community and both recognized her upon introduction. The pt made eye contact and smiled. When asked how he was, he responded with a weak voice, Ok, I guess. A family friend, also known by this clinician, arrived during the evaluation and participated in discussions. Evaluation Liquids Trialed Ice Chips,Thin Solids Trialed Puree,Dysphagia Mechanical, Mechanical Soft,Regular Administration Type Tea Spoon,Cup Single Sip, Controlled Cup Sip,Straw,Self- Feeding Oral Impairment Within Functional Limits Oral Strategies Upright at 90 degrees Oral Phase Comments Oral Peripheral Exam: Mild right side facial weakness visible at eye lid, nasolabial fold. Mild lingual deviation to right also observed upon tongue protrusion. Lingual, labial and buccal strength and coordination WFL for gross and automatic movements. Pt was able to follow most verbal prompts with occasional need for demonstration and occasional difficulty coordinating oral fine motor movements, indicative of mild apraxia. The pt has natural dentition with right upper molars missing; otherwise in adequate condition. Soft palate elevated upon phonation. Hyolaryngeal elevation/ excursion WNL via palpation. Oral Phase: Appropriate oral acceptance and anterior containment. Bolus prep and a/ p propulsion appear WNL. Swallow was timely. With thin liquids, the pt frequently swished around mouth prior to swallowing. On 2 occasions he swallowed significant amounts of air with water after swishing, which resulted in immediate cough. No abnormal oral residue or pocketing was observed. Pharyngeal Impairment Within Functional Limits Pharyngeal Strategies Sitting Upright (90 deg),Small Bites and Sips Pharyngeal Phase Comments As described above, 2 episodes of immediate cough with thin liquids was observed when pt consumed large amount of air and swished water in mouth prior to swallow. No other overt s/sx of aspiration were observed with all trials, including many additional trials of thin liquid via cup and straw. The pt swallowed 2 small pills with water without difficulty. He was able to self-feed from spoon, cup and cup with straw with only mild difficulty maintaining spoon in fully upright position while pulse-oxomitor was on his right index finger. Throughout the evaluation, the pt was communicatively responsive with facial expressions, gestures, and/or words. Expressive language was moderately aphasic, characterized by jargon and paraphasias with many islands of clear speech. The pt was aware of this upon each occurrence and re-attempted speech, usually at a slower rate and was successful in most episodes in making himself understood. His voice was weak but present. The pt is known by this clinician to have a wonderful sense of humor, frequently teasing, and this did appear during the evaluation as well, which is encouraging and indicative of higher level abstract language skills. Swallow evaluation results, recommendations, and initial impressions of speech/language skills was provided to the pt , his , their daughter Xiomara (via phone) and family friend. Recommended the pt take a breath and reduce rate of speech at times when he has difficulty expressing himself . More thorough evaluation of speech and language to be administered tomorrow. All questions were answered, and all parties verbalized understanding. Findings Dysphagia Type WFL Rehabilitation Potential Good Impressions The pt presents with swallow ability WFL. Coughing was noted to occur when pt swished liquids prior to swallowing. However, at all other times, he exhibited no overt s/sx of aspiration. Recommend soft diet for now as preventive measure to reduce unnecessary burden. The pt and his were in agreement with this. Will continue to monitor and upgrade diet as appropriate. Diet Recommendations Liquids Order Thin Diet Order Mechanical Soft Medication Recommendations As Tolerated Aspiration Precautions Recommended Precautions Upright at 90 Degrees,Small Bites/Sips Additional Precautions Avoid swishing water in mouth prior to swallow or do so with small amounts Treatment Plan Placement Recommendations after [facility] Discharge Appropriate for Therapy Yes Therapy Recommendations Ongoing assessment of swallow safety with modifications to diet as indicated. Ongoing pt/family education. Assessment of speech and language with treatment as indicated. Dysphagia Goals 1. The pt will employ safe swallow strategies to reduce risk of aspiration with oral intake. 2. The pt will tolerate least restrictive diet to meet his nutrition and hydration needs. PAYMENT SPECIALIST Follow Up Daily over hospital stay
--- NOTE | 2020-05-14 18:38 | PM.DS.1 ---
History of Present Illness History of Present Illness Date Patient Seen: 05/14/20 Chief complaint: Abnormal behavior x2 days Narrative: Mr. Carlos Soria is a 79-year-old male with a past medical history significant for hypertension, heart disease status post heart valve replacement, non insulin-dependent diabetes, colon cancer status post colon resection and gout who presents to the ER via EMS with altered mental status. The patient is unable to provide information due to the density of his neurological injury, information is obtained from the patient's at bedside and the medical record. Per the patient's the patient was in his usual state health last night prior to going to bed. Upon waking today she describes as being very groggy and primarily nonverbal. She states the patient finally got up to the bathroom he was ambulatory without significant ataxia however upon returning from the bathroom patient presented with marked deficits noted by the caregiver that had since arrived who called EMS. The states the patient was trying to talk and was nonsensical. She states he was getting more more frustrated not being able to communicate. Prior to these events the patient had been receiving physical therapy through cardiac rehab on ongoing basis. He had over the last 1-2 months developed a intermittently shuffling gait and would ambulate with a cane and sustained falls recently. Per his he had not complained of any recent fevers or chills and he has had no known COVID-19 exposures. He has not related any complaints of headaches, nasal congestion or sore throat. He has reported no chest pain or palpitations or shortness of breath cough or wheezing. He has had no recent abdominal pain, nausea vomiting. He has had no diarrhea or constipation reported no urinary difficulties. On evaluation directly with the patient he nods inconsistently yes or no to questions but denies complaints of pain or headache at the time of encounter. Upon arrival to the ER the patient is afebrile with a temperature 98.7?, heart rate of 79, blood pressure 160/79, respirations of 15 saturating 95% on room air. CT of the head is obtained which finds no acute intracranial pathology with notation of no significant changes from prior exam. Chest x-ray finds cardiomyopathy with mild pulmonary vascular congestion. On laboratory analysis the patient has white count of 7.0, hemoglobin of 14.0, hematocrit of 40.3 and platelets of 214. On electrolytes he has a sodium 139 a potassium of 2.8. His BUN is 15 and creatinine 0.61. His nonfasting glucose is 150. Liver functions are all within normal limits and has an ammonia of less than 9. His albumin of 3.8. Lactic acid is 1.3. The patient is admitted to the medicine service for CVA with his last known normal being approximately 24 hours ago. Discharge Providers Provider Date of admission: 05/13/20 22:22 Discharge Date: 05/14/20 Primary care physician: Martín West MD Consults: 05/13/20 22:33 Consult to Discharge Planning Routine Comment: Consult to Occupational Therapy Evaluate & Treat Comment: Physician Instructions: Evaluate and treat Consult to Physical Therapy Evaluate & Treat Comment: Physician Instructions: Evaluate and Treat Consult to Speech Therapy Evaluate & Treat Comment: Physician Instructions: Evaluate and treat 05/13/20 22:43 Consult to Occupational Therapy Evaluate & Treat Comment: CVA with AMS, right anurag Physician Instructions: Evaluate and treat Consult to Physical Therapy Evaluate & Treat Comment: CVA with AMS, right anurag Physician Instructions: Evaluate and Treat Consult to Speech Therapy Evaluate & Treat Comment: CVA with AMS, right anurag Physician Instructions: Evaluate and treat 05/14/20 01:00 Consult to Speech Therapy Evaluate & Treat Comment: Physician Instructions: Evaluate and treat Discharge provider: Lauren Tee MD Summary Hospital Course Discharge Diagnosis: 1. 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 Bioprosthetic aortic valve, echo cardiac demonstrates small calcified echogenic mobile structure which is likely attached to 1 of the aortic cusps this was seen in April 2016, lupillo recommended for further evaluation 3. Hypertension 4. Hyperlipidemia 5. Type 2 diabetes 6. Benign prostatic hypertrophy 7. Gout 8. History of colon cancer Hospital Course: Patient was admitted to the hospital with aphasia, dysarthria, right upper and right lower extremity weakness. He also had noted confusion. The patient had a CT angio which confirmed a vertebral artery stenosis, he had a head CT which showed no acute stroke. MRI was not obtained. The patient underwent cardiac echo for workup of an embolic stroke. This showed a small calcified echogenic mobile structure attached to 1 of the aortic cusp. This was present in April 2016. There was no dehiscence of the aortic valve or significant aortic regurgitation. The patient was seen by physical therapy occupational therapy and speech therapy. Given the findings on echocardiogram arrangements were made for him to transfer to [facility] for transesophageal echocardiogram and further evaluation of his acute stroke. This was communicated to the patient and his who concur with the plan and arrangements are made for him to be transferred accordingly. Exam Vital Signs (past 8 hours): - 05/14/20 11:27 05/14/20 15:20 Temperature 97.6 F 98.2 F Pulse Rate 73 93 H Respiratory Rate 16 20 Blood Pressure 153/103 H 146/95 H Pulse Oximetry 97 96 Oxygen Delivery Method Room Air Oxygen Flow Rate 0 Narrative Exam Narrative: Aphasic male awake alert and appropriate HEENT: Right facial droop, aphasia, right upper extremity and right lower extremity week Lungs: Clear to auscultation Cardiac exam: Regular rate and rhythm normal S1-S2 with a 2/6 systolic ejection murmur Abdomen: Soft nontender nondistended Extremities: No edema Objective Labs Result Diagrams: 05/14/20 04:40 05/14/20 04:40 Labs: Laboratory Results - last 24 hr 05/13/20 05/13/20 05/13/20 17:45 17:45 20:10 WBC RBC Hgb Hct MCV MCH MCHC RDW Plt Count Neut % (Auto) Lymph % (Auto) Jackson % (Auto) Eos % (Auto) Baso % (Auto) Neut # (Auto) Lymph # (Auto) Jackson # (Auto) Eos # (Auto) Baso # (Auto) PT INR APTT Sodium Potassium Chloride Carbon Dioxide BUN Creatinine Estimated GFR BUN/Creatinine Ratio Glucose Hemoglobin A1c Calcium Magnesium 1.8 Troponin I 0.020 Triglycerides Cholesterol LDL Cholesterol, Calc HDL Cholesterol TSH Urine Color Yellow Urine Appearance Clear Urine pH 6.0 Ur Specific [place] 1.015 Urine Protein Trace H Urine Glucose (UA) Negative Urine Ketones Negative Urine Occult Blood Negative Urine Nitrate Negative Urine Bilirubin Negative Urine Urobilinogen 0.2 Ur Leukocyte Esterase Negative Urine RBC None seen Urine WBC 0-1/hpf Ur Squamous Epith Cells 0-1 /hpf Urine Bacteria None seen Urine Mucus 2+ H Ur Culture Indicated? Cult not indicated 05/13/20 05/13/20 05/14/20 22:55 22:55 04:40 WBC 7.2 RBC 4.63 Hgb 14.3 Hct 40.7 L MCV 87.9 MCH 30.8 MCHC 35.0 RDW 14.2 Plt Count 223 Neut % (Auto) 72.1 Lymph % (Auto) 16.8 L Jackson % (Auto) 8.6 Eos % (Auto) 1.9 L Baso % (Auto) 0.6 Neut # (Auto) 5200 Lymph # (Auto) 1200 Jackson # (Auto) 600 Eos # (Auto) 100 Baso # (Auto) 0 PT 11.9 INR 1.0 APTT 32 Sodium Potassium Chloride Carbon Dioxide BUN Creatinine Estimated GFR BUN/Creatinine Ratio Glucose Hemoglobin A1c Calcium Magnesium Troponin I Triglycerides Cholesterol LDL Cholesterol, Calc HDL Cholesterol TSH Urine Color Urine Appearance Urine pH Ur Specific [place] Urine Protein Urine Glucose (UA) Urine Ketones Urine Occult Blood Urine Nitrate Urine Bilirubin Urine Urobilinogen Ur Leukocyte Esterase Urine RBC Urine WBC Ur Squamous Epith Cells Urine Bacteria Urine Mucus Ur Culture Indicated? 05/14/20 05/14/20 05/14/20 04:40 04:40 04:40 WBC RBC Hgb Hct MCV MCH MCHC RDW Plt Count Neut % (Auto) Lymph % (Auto) Jackson % (Auto) Eos % (Auto) Baso % (Auto) Neut # (Auto) Lymph # (Auto) Jackson # (Auto) Eos # (Auto) Baso # (Auto) PT INR APTT Sodium 141 Potassium 3.7 Chloride 106 Carbon Dioxide 31 BUN 11 Creatinine 0.66 Estimated GFR > 60.0 BUN/Creatinine Ratio 16.7 Glucose 116 H Hemoglobin A1c 7.5 H Calcium 9.4 Magnesium Troponin I Triglycerides 256 H Cholesterol 203 H LDL Cholesterol, Calc 119 H HDL Cholesterol 33 L TSH 1.15 Urine Color Urine Appearance Urine pH Ur Specific [place] Urine Protein Urine Glucose (UA) Urine Ketones Urine Occult Blood Urine Nitrate Urine Bilirubin Urine Urobilinogen Ur Leukocyte Esterase Urine RBC Urine WBC Ur Squamous Epith Cells Urine Bacteria Urine Mucus Ur Culture Indicated? Discharge Assessment & Plan Assessment and Plan Assessment: 1. Probable acute left MCA CVA, present on admission 2. Probable embolic focus involving the aortic valve, transfer to [facility] for definitive transesophageal echocardiogram 3. Bioprosthetic aortic valve 4. Hypertension 5. Hyperlipidemia 6. Gout 7. History of colon cancer Plan of Treatment: Transfer to [facility] for LUPILLO, would obtain MRI of the brain as well. Discharge Plan Discharge Plan Patient Disposition: [facility] Under care of provider: Dr. Dyllan Spain Discharge comment: Needs LUPILLO and Head MRI Discharge orders & Medications Prescriptions: No Action metformin 500 mg tablet 500 mg PO BID RF: 0 nifedipine 30 mg tablet extended release 30 mg PO DAILY RF: 0 amlodipine 5 mg tablet 5 mg PO DAILY RF: 0 aspirin [Adult Low Dose Aspirin] 81 mg tablet,delayed release (DR/EC) 81 mg PO DAILY RF: 0 sildenafil [Viagra] 100 mg tablet 100 mg PO DAILY PRN (Reason: as directed) RF: 0 tamsulosin [Flomax] 0.4 mg capsule 0.4 mg PO DAILY RF: 0 allopurinol 300 mg tablet 300 mg PO DAILY RF: 0 escitalopram oxalate 10 mg tablet 10 mg PO DAILY RF: 0 Bystolic 5 mg tablet 5 mg PO DAILY RF: 0 Centrum Silver Men 300-600-300 mcg tablet 1 tab PO DAILY RF: 0 losartan-hydrochlorothiazide 1 tab PO DAILY RF: 0 ondansetron 4 mg tablet,disintegrating 4 mg PO Q8H PRN (Reason: nausea and vomiting) Qty: 10 RF: 0 finasteride 5 mg tablet 5 mg PO DAILY RF: 0 docusate sodium [Stool Softener] 100 mg Capsule 100 mg PO DAILY RF: 0 Follow up/Referrals: Martín West MD [Primary Care Provider] - Diet/Activity/Treatments Diet: Low-fat, Low-sodium and Low-cholesterol Food texture: Soft Activity: as tolerated Discharge Data Primary Care Provider: Martín West Quality VTE Deep Vein Thrombosis/Pulmonary Embolism Present on Admission: No
--- NOTE | 2020-05-14 19:46 | PC.NURSE ---
Called report to Tucker at [facility], report given to transport team and out the door at [phone].
--- NOTE | 2020-05-15 08:02 | CM.DPC ---
DCP Hospital Transfer Per MD note from overnight, pt's Echo results returned and decision made for hospital transfer to [facility] for higher level of care due to pt's cardiac needs. Pt was accepted at [facility] and transferred last night 05/14/20. KELLEY Liu
== END 2020-05-14 19:45 | disposition short-term general hospital (02) | DRG 65 ==
LOC: ED 21:43 → AC 05-14 07:44
PROVIDERS: Emergency Medicine; Admitting Provider Nurse Practitioner Adult Health; Emergency Provider Emergency Medicine; PCP Family Medicine; Visit Provider Nurse Practitioner Adult Health
DX: I63.9 Cerebral infarction, unspecified (principal); G81.91 Hemiplegia, unspecified affecting right dominant side; R47.01 Aphasia; I10 Essential (primary) hypertension; E11.9 Type 2 diabetes mellitus without complications; I25.10 Atherosclerotic heart disease of native coronary artery without angina pectoris; M10.9 Gout, unspecified; N40.0 Benign prostatic hyperplasia without lower urinary tract symptoms; E78.5 Hyperlipidemia, unspecified; R29.715 NIHSS score 15; Z95.2 Presence of prosthetic heart valve; Z87.891 Personal history of nicotine dependence; Z79.84 Long term (current) use of oral hypoglycemic drugs; Z85.038 Personal history of other malignant neoplasm of large intestine
CPT/HCPCS: 36415; 70450; 70496; 71045; 80048; 80053; 80061; 81001; 82140; 82962; 83036; 83605; 83735; 84146; 84443; 84484; 85025; 85610; 85730; 92610; 93005; 93306; 94762; 96360; 96361; 97162; 97165; 99284; 99285; J1650; J3480; Q9967